=== PATIENT | male | born 1955 | race Caucasian/White ===

== ENCOUNTER 2020-04-28 11:06 | Inpatient (IN) | payer OTHER, MEDICARE ==
[2020-04-28] MEDS ORDERED: NITROGLYCERIN OINT 1 INCH/GM PACKET TOPICAL STA (11:35)
[2020-04-28] MEDS ORDERED: ASPIRIN 81 MG PO STA (11:35)
[2020-04-28 11:47] LABS: Basophils # (A) 0.1 k/uL (0-0.2); Basophils % (A) 1 %; Eosinophils # (A) 0.2 k/uL (0-0.7); Eosinophils % (A) 2 %; HCT 41.9 % (39.0-53.0); Lymphocytes # (A) 0.6 k/uL (1.0-4.8); Lymphocytes % (A) 9 %; MCH 30.4 pg (25.0-35.0); MCHC 33.5 g/dL (31.0-37.0); MCV 90.8 fL (80.0-100.0); Mean Platelet Volume 8.1; Monocytes # (A) 0.5 k/uL (0-1.0); Monocytes % (A) 7 %; Neutrophils # (A) 5.6 k/uL (1.3-7.7); Neutrophils % (A) 79 %; Platelet Count 172 k/uL (150-450); Poikilocytosis Slight; RBC 4.61 m/uL (4.30-5.90); RDW 14.9 % (11.5-15.5); WBC 7.1 k/uL (3.8-10.6)
--- NOTE | 2020-04-28 11:48 | ED ---
General Adult HPI - General Chief complaint: Chest Pain Stated complaint: chest pain Time Seen by Provider: 04/28/20 11:15 Source: patient, family, RN notes reviewed Mode of arrival: wheelchair Limitations: no limitations - History of Present Illness Initial comments: Patient is a pleasant 65-year-old male presenting to the emergency Department with chest discomfort. Onset of symptoms was 4 days ago. Patient has had some mild chest discomfort described as an ache. Patient has also had dyspnea. Dyspnea has progressed. Dyspnea does worsen with lying down as well as exertion. No cough. No fever. No leg pain or leg swelling. Symptoms are some what similar to previous heart problems. Patient has had previous CABG and stents. Mild nausea this morning. No diaphoresis. - Related Data Home Medications Medication Instructions Recorded Confirmed Aspirin 81 mg PO DAILY 04/28/20 04/28/20 Clopidogrel Bisulfate [Plavix] 75 mg PO DAILY 04/28/20 04/28/20 Flaxseed Oil [[place]-3 Flaxseed Oil] 1,000 mg PO BID 04/28/20 04/28/20 INSULIN LISPRO (humaLOG) [humaLOG] See Protocol SQ AC-TID 04/28/20 04/28/20 Ibuprofen [Motrin Ib] 200 mg PO Q8H PRN 04/28/20 04/28/20 Insulin Glargine,Hum.rec.anlog 50 unit SQ HS 04/28/20 04/28/20 [Basaglar Kwikpen U-100] Levothyroxine Sodium [Synthroid] 50 mcg PO DAILY 04/28/20 04/28/20 Melatonin 3 mg PO HS PRN 04/28/20 04/28/20 Metoprolol Tartrate [Lopressor] 100 mg PO DAILY 04/28/20 04/28/20 Multivitamins, Thera [Multivitamin 1 tab PO DAILY 04/28/20 04/28/20 (formulary)] Pravastatin Sodium [Pravachol] 40 mg PO DAILY 04/28/20 04/28/20 Ranolazine [Ranolazine ER] 500 mg PO BID 04/28/20 04/28/20 lisinopriL [Zestril] 10 mg PO DAILY 04/28/20 04/28/20 metFORMIN HCL 1,000 mg PO BID 04/28/20 04/28/20 Allergies Allergy/AdvReac Type Severity Reaction Status Date / Time exenatide [From Byetta] Allergy Rash/Hives Verified 04/28/20 13:09 Iodinated Contrast Media Allergy Unknown Verified 04/28/20 13:09 latex Allergy Rash/Hives Verified 04/28/20 13:09 liraglutide [From Victoza] Allergy Rash/Hives Verified 04/28/20 13:09 Review of Systems ROS Statement: Those systems with pertinent positive or pertinent negative responses have been documented in the HPI. ROS Other: All systems not noted in ROS Statement are negative. Constitutional: Denies: fever Eyes: Denies: eye pain ENT: Denies: ear pain Respiratory: Reports: dyspnea. Denies: cough Cardiovascular: Reports: chest pain Endocrine: Reports: fatigue Gastrointestinal: Denies: abdominal pain Genitourinary: Denies: dysuria Musculoskeletal: Denies: back pain Skin: Denies: rash Neurological: Denies: weakness Past Medical History Past Medical History: Diabetes Mellitus, Hypertension, Myocardial Infarction (CT), Prostate Disorder, Thyroid Disorder Additional Past Medical History / Comment(s): Diverticulitis History of Any Multi-Drug Resistant Organisms: None Reported Past Surgical History: Coronary Bypass/CABG, Heart Catheterization With Stent, Pacemaker Additional Past Surgical History / Comment(s): Triple bypass 2007, prostate removed Past Psychological History: No Psychological Hx Reported Smoking Status: Never smoker Past Alcohol Use History: None Reported Past Drug Use History: None Reported General Exam Limitations: no limitations General appearance: alert, in no apparent distress Head exam: Present: normocephalic Eye exam: Present: normal appearance Neck exam: Present: normal inspection Respiratory exam: Present: rales (Mild right base) Cardiovascular Exam: Present: regular rate, normal rhythm Expanded Peripheral pulses: 2+: Radial (R), Radial (L), Dorsalis Pedis (R), Dorsalis Pedis (L) GI/Abdominal exam: Present: soft. Absent: tenderness Extremities exam: Present: normal inspection. Absent: pedal edema, calf tenderness Neurological exam: Present: alert Psychiatric exam: Present: normal affect, normal mood Skin exam: Present: normal color Course Vital Signs 04/28/20 04/28/20 04/28/20 11:07 11:26 12:57 Temperature 97.8 F Pulse Rate 67 75 75 Respiratory 18 18 18 Rate Blood Pressure 122/82 118/81 116/76 O2 Sat by Pulse 95 96 98 Oximetry EKG Findings - EKG Comments: EKG Findings:: Paced rhythm with a rate of 77. MO 135. QRS 118. QT 398. QTC 450. Right axis. Septal Q waves. Lateral T wave inversion. Medical Decision Making - Medical Decision Making Patient reevaluated and resting comfortably in bed, near symptom-free at this point. Patient and family updated on results and plan. Dr. Auguste has been paged for admission. Heparin will be started. Cardiology will be placed on consult. - Lab Data Result diagrams: 04/28/20 11:38 04/28/20 11:38 Lab Results 04/28/20 04/28/20 04/28/20 Range/Units 11:38 11:38 11:38 WBC 7.1 (3.8-10.6) k/uL RBC 4.61 (4.30-5.90) m/uL Hgb 14.0 (13.0-17.5) gm/dL Hct 41.9 (39.0-53.0) % MCV 90.8 (80.0-100.0) fL MCH 30.4 (25.0-35.0) pg MCHC 33.5 (31.0-37.0) g/dL RDW 14.9 (11.5-15.5) % Plt Count 172 (150-450) k/uL MPV 8.1 Neutrophils % 79 % Lymphocytes % 9 % Monocytes % 7 % Eosinophils % 2 % Basophils % 1 % Neutrophils # 5.6 (1.3-7.7) k/uL Lymphocytes # 0.6 L (1.0-4.8) k/uL Monocytes # 0.5 (0-1.0) k/uL Eosinophils # 0.2 (0-0.7) k/uL Basophils # 0.1 (0-0.2) k/uL Poikilocytosis Slight PT 10.7 (9.0-12.0) sec INR 1.0 (<1.2) APTT 23.8 (22.0-30.0) sec D-Dimer 0.62 H (<0.60) mg/L FEU Sodium 135 L (137-145) mmol/L Potassium 4.8 (3.5-5.1) mmol/L Chloride 103 (98-107) mmol/L Carbon Dioxide 22 (22-30) mmol/L Anion Gap 10 mmol/L BUN 14 (9-20) mg/dL Creatinine 0.78 (0.66-1.25) mg/dL Est GFR (CKD-EPI)AfAm >90 (>60 ml/min/1.73 sqM) Est GFR (CKD-EPI)NonAf >90 (>60 ml/min/1.73 sqM) Glucose 243 H (74-99) mg/dL Calcium 9.4 (8.4-10.2) mg/dL Magnesium 1.7 (1.6-2.3) mg/dL Total Bilirubin 0.8 (0.2-1.3) mg/dL AST 40 (17-59) U/L ALT 38 (4-49) U/L Alkaline Phosphatase 53 (38-126) U/L Troponin I (0.000-0.034) ng/mL NT-Pro-B Natriuret Pep pg/mL Total Protein 6.9 (6.3-8.2) g/dL Albumin 4.1 (3.5-5.0) g/dL Coronavirus (PCR) (Not Detectd) 04/28/20 04/28/20 04/28/20 Range/Units 11:38 11:38 11:55 WBC (3.8-10.6) k/uL RBC (4.30-5.90) m/uL Hgb (13.0-17.5) gm/dL Hct (39.0-53.0) % MCV (80.0-100.0) fL MCH (25.0-35.0) pg MCHC (31.0-37.0) g/dL RDW (11.5-15.5) % Plt Count (150-450) k/uL MPV Neutrophils % % Lymphocytes % % Monocytes % % Eosinophils % % Basophils % % Neutrophils # (1.3-7.7) k/uL Lymphocytes # (1.0-4.8) k/uL Monocytes # (0-1.0) k/uL Eosinophils # (0-0.7) k/uL Basophils # (0-0.2) k/uL Poikilocytosis PT (9.0-12.0) sec INR (<1.2) APTT (22.0-30.0) sec D-Dimer (<0.60) mg/L FEU Sodium (137-145) mmol/L Potassium (3.5-5.1) mmol/L Chloride (98-107) mmol/L Carbon Dioxide (22-30) mmol/L Anion Gap mmol/L BUN (9-20) mg/dL Creatinine (0.66-1.25) mg/dL Est GFR (CKD-EPI)AfAm (>60 ml/min/1.73 sqM) Est GFR (CKD-EPI)NonAf (>60 ml/min/1.73 sqM) Glucose (74-99) mg/dL Calcium (8.4-10.2) mg/dL Magnesium (1.6-2.3) mg/dL Total Bilirubin (0.2-1.3) mg/dL AST (17-59) U/L ALT (4-49) U/L Alkaline Phosphatase (38-126) U/L Troponin I 0.338 H* (0.000-0.034) ng/mL NT-Pro-B Natriuret Pep 1460 pg/mL Total Protein (6.3-8.2) g/dL Albumin (3.5-5.0) g/dL Coronavirus (PCR) Not Detected (Not Detectd) - Radiology Data Radiology results: image reviewed (Chest x-ray shows no acute process) Critical Care Time Critical Care Time: Yes Total Critical Care Time: 32 Disposition Clinical Impression: NSTEMI (non-ST elevated myocardial infarction) Disposition: ADMITTED IP TO THIS [facility] Is patient prescribed a controlled substance at d/c from ED?: No Referrals: Everardo Auguste MD [Primary Care Provider] - 1-2 days Decision Time: 13:19
[2020-04-28 12:04] LABS: Partial Thromboplastin Time 23.8 sec (22.0-30.0); Prothrombin Time 10.7 sec (9.0-12.0)
[2020-04-28 12:07] LABS: ALT 38 U/L (4-49); AST 40 U/L (17-59); African American GFR (CKD) >90 (>60 ml/min/1.73 sqM); Albumin 4.1 g/dL (3.5-5.0); Alkaline Phosphatase 53 U/L (38-126); Anion Gap 10 mmol/L; Blood Urea Nitrogen 14 mg/dL (9-20); Calcium 9.4 mg/dL (8.4-10.2); Carbon Dioxide 22 mmol/L (22-30); Chloride 103 mmol/L (98-107); Glucose 243 mg/dL (74-99); Magnesium 1.7 mg/dL (1.6-2.3); Non-African American GFR(CKD) >90 (>60 ml/min/1.73 sqM); Potassium 4.8 mmol/L (3.5-5.1); Sodium 135 mmol/L (137-145); Total Bilirubin 0.8 mg/dL (0.2-1.3); Total Protein 6.9 g/dL (6.3-8.2)
--- NOTE | 2020-04-28 12:14 | XR ---
EXAMINATION TYPE: XR chest 2V DATE OF EXAM: 04/28/2020 COMPARISON: NONE HISTORY: Shortness of breath TECHNIQUE: Frontal and lateral views of the chest are obtained. FINDINGS: Scattered senescent parenchymal changes noted. Hyperinflation compatible with COPD. No evidence for infiltrate. No evidence for atelectasis. Heart size is stable. Mediastinal structures are stable and grossly unremarkable. No evidence for hilar prominence. Degenerative changes dorsal spine. IMPRESSION: 1. No evidence for acute pulmonary disease.
[2020-04-28 12:19] LABS: D-Dimer 0.62 mg/L FEU (<0.60)
[2020-04-28] MEDS ORDERED: HEPARIN SODIUM,PORCINE 5,000 UNIT/ML 1 ML VIAL IV ONE (12:52)
[2020-04-28] MEDS ORDERED: HEPARIN SODIUM,PORCINE 5,000 UNIT/ML 1 ML VIAL IV PRN (12:52)
[2020-04-28] MEDS ORDERED: INSULIN ASPART (NovoLOG) 100 UNIT/ML VIAL SQ ONE (13:11)
[2020-04-28] MEDS ORDERED: NITROGLYCERIN SL TABS 0.4 MG TAB SUBLINGUAL PRN (13:21)
[2020-04-28] MEDS: HEPARIN SOD,PORK IN 0.45% NACL 25,000 UNIT in 0.45% NACL 1 250ML.BAG IV SCH (13:23)
[2020-04-28] MEDS: NITROGLYCERIN OINT 1 INCH/GM PACKET TOPICAL SCH ×2 (18:09→23:00)
[2020-04-28] MEDS: ACETAMINOPHEN TAB 325 MG TAB PO PRN (18:57)
[2020-04-28 20:20] LABS: Glucose,Whole Blood 196 mg/dL (75-99)
[2020-04-28] MEDS: INSULIN ASPART (NovoLOG) 100 UNIT/ML VIAL SQ SCH (20:32)
[2020-04-28] MEDS: NON FORMULARY DRUG (Flaxseed Oil [Omega-3 Flaxseed Oil] 1,000 MG Capsule) PO SCH (20:55)
[2020-04-28] MEDS: metFORMIN 500 MG TAB PO SCH (20:56)
[2020-04-28] MEDS: ZOLPIDEM 5 MG TAB PO PRN (20:56)
[2020-04-28] MEDS: RANOLAZINE 500 MG TAB.ER.12H PO SCH (20:56)
[2020-04-29 06:28] LABS: Glucose,Whole Blood 207 mg/dL (75-99)
[2020-04-29] MEDS: ACETAMINOPHEN TAB 325 MG TAB PO PRN (06:30)
[2020-04-29] MEDS: INSULIN ASPART (NovoLOG) 100 UNIT/ML VIAL SQ SCH ×4 (06:30→21:00)
[2020-04-29] MEDS: NITROGLYCERIN OINT 1 INCH/GM PACKET TOPICAL SCH ×3 (06:30→17:16)
[2020-04-29 07:36] LABS: Basophils % (A) 0 %; Eosinophils # (A) 0.2 k/uL (0-0.7); Eosinophils % (A) 3 %; HCT 37.5 % (39.0-53.0); HGB 12.5 gm/dL (13.0-17.5); Lymphocytes # (A) 0.7 k/uL (1.0-4.8); Lymphocytes % (A) 12 %; MCH 30.7 pg (25.0-35.0); MCHC 33.3 g/dL (31.0-37.0); MCV 92.2 fL (80.0-100.0); Mean Platelet Volume 8.7; Monocytes # (A) 0.4 k/uL (0-1.0); Monocytes % (A) 7 %; Neutrophils % (A) 75 %; Platelet Count 143 k/uL (150-450); RBC 4.07 m/uL (4.30-5.90); RDW 14.6 % (11.5-15.5); WBC 5.4 k/uL (3.8-10.6)
[2020-04-29] MEDS: NON FORMULARY DRUG (Flaxseed Oil [Omega-3 Flaxseed Oil] 1,000 MG Capsule) PO SCH ×2 (07:40→20:57)
[2020-04-29] MEDS: metFORMIN 500 MG TAB PO SCH ×2 (07:40→20:58)
[2020-04-29 07:44] LABS: INR 1.1 (<1.2); Prothrombin Time 11.2 sec (9.0-12.0)
[2020-04-29] MEDS: lisinopriL 10 MG TAB PO SCH (07:47)
[2020-04-29] MEDS: METOPROLOL TARTRATE 50 MG TAB PO SCH (07:48)
[2020-04-29] MEDS: LEVOTHYROXINE 50 MCG TAB PO SCH (07:48)
[2020-04-29] MEDS: PRAVASTATIN SODIUM 40 MG TAB PO SCH (07:48)
[2020-04-29] MEDS: MULTIVITAMINS, THERA 1 EACH TAB PO SCH (07:48)
[2020-04-29] MEDS: RANOLAZINE 500 MG TAB.ER.12H PO SCH ×2 (07:48→20:59)
[2020-04-29 08:08] LABS: Cholesterol 119 mg/dL (<200); HDL Cholesterol 29 mg/dL (40-60); LDL Cholesterol,Calculated 41 mg/dL (0-99); Triglycerides 247 mg/dL (<150)
[2020-04-29] MEDS ORDERED: FUROSEMIDE 10 MG/ML 2 ML VIAL IV ONE (08:12)
[2020-04-29] MEDS ORDERED: ASPIRIN 325 MG TAB PO SCH (09:00)
[2020-04-29] MEDS: ASPIRIN 81 MG PO SCH (09:14)
[2020-04-29] MEDS: HEPARIN SOD,PORK IN 0.45% NACL 25,000 UNIT in 0.45% NACL 1 250ML.BAG IV SCH ×2 (09:20→23:23)
--- NOTE | 2020-04-29 11:00 | ECHOF ---
Referral Reason:nstemi MEASUREMENTS -------- HEIGHT: 152.4 cm WEIGHT: 104.3 kg BP: IVSd: 1.0 cm (0.6 - 1.1) LVIDd: 5.4 cm (3.9 - 5.3) LVPWd: 1.5 cm (0.6 - 1.1) IVSs: 1.9 cm LVIDs: 3.6 cm LVPWs: 2.1 cm LAESV Index (A-L): 52.22 ml/m MV EXCURSION: 20.195 mm (> 18.000) MV EF SLOPE: 141 mm/s (70 - 150) MV E Fabrice: 0.80 m/s MV DecT: 123 ms MV A Fabrice: 0.38 m/s MV E/A Ratio: 2.12 RAP: 5.00 mmHg RVSP: 45.05 mmHg FINDINGS -------- Paced rhythm. Pacerwire seen in RV and RA. This was a techncally difficult study with suboptimal views, , Lumason utilized for enhancement of im ages. The left ventricular size is normal. Left ventricular wall thickness is normal. Overall left vent ricular systolic function is severely impaired with, an EF between 20 - 25 %. The right ventricle is normal in size. LA is severely dilated >40 ml/m2 The right atrial size is normal. 5.0mg OF Lumason UTLIZED: 2 OR MORE WALL SEGMENTS NOT VISUALIZED. The aortic valve was not well visualized. Mild mitral regurgitation is present. Mild tricuspid regurgitation present. There is mild pulmonary hypertension. The right ventricular systolic pressure, as measured by Doppler, is 45.05mmHg. The pulmonic valve was not well visualized. The aortic root size is normal. There is no pericardial effusion. CONCLUSIONS -------- 1. Pacerwire seen in RV and RA. 2. This was a techncally difficult study with suboptimal views, , Lumason utilized for enhancement of images. 3. The left ventricular size is normal. 4. Left ventricular wall thickness is normal. 5. Overall left ventricular systolic function is severely impaired with, an EF between 20 - 25 %. 6. The right ventricle is normal in size. 7. LA is severely dilated >40 ml/m2 8. The right atrial size is normal. 9. 5.0mg OF Lumason UTLIZED: 2 OR MORE WALL SEGMENTS NOT VISUALIZED. 10. The aortic valve was not well visualized. 11. Mild mitral regurgitation is present. 12. Mild tricuspid regurgitation present. 13. There is mild pulmonary hypertension. 14. The right ventricular systolic pressure, as measured by Doppler, is 45.05mmHg. 15. The pulmonic valve was not well visualized. 16. The aortic root size is normal. 17. There is no pericardial effusion. [employer]IST: Chantell Persaud RDCS
[2020-04-29 11:46] LABS: Glucose,Whole Blood 280 mg/dL (75-99)
--- NOTE | 2020-04-29 12:10 | P.CRDCN ---
History of Present Illness History of present illness: HISTORY OF PRESENTING ILLNESS This is a pleasant 65-year-old male past medical history significant for coronary artery disease status post bypass grafting MAKC-LAD, SVG-OM and PDA 2007 and subsequent PCI of the MACK-LAD anastomosis 2008, ischemic cardiomyopathy status post AICD ([facility] [facility]), diabetes mellitus, hypertension and dyslipidemia. He follows in the office with Dr. Villar. We have been asked to see in consultation for chest pain with elevated troponins. He states for the last 4 days he has been feeling increasingly short of breath. He has been unable to sleep due to orthopnea and inability to lay flat. He also cannot do simple activities such as even walking through his house with having to stop for a breath of air. At times he is also having chest heaviness associated with the shortness of breath. He denies palpitations, dizziness, nausea or vomiting. His most recent catheterization reviewed from 2018 revealed anterior lateral and apical akinesia, MACK to LAD is occluded, [place] LAD is occluded proximally, diffusely diseased distal apical LAD fills by [id number] collaterals, SVG to OM occluded, nonobstructive disease of the [place] circumflex with diffuse disease of the distal OM, SVG PDA is diffusely diseased, [place] RCA supplies only a large RPL there are discrete distal RCA and proximal RPL lesion distal RPL swelling diffusely. Compared to catheterization in 2008 months significant change was occluded distal MACK to LAD anastomosis and some mild progression of lesions in the distal RCA and RPL. Echocardiogram obtained on this admission reveals impaired LV systolic function with ejection fraction 20-25%, mild MR, mild TR and mild pulmonary hypertension with an RVSP of 45 mmHg. DIAGNOSTICS EKG reveals sinus mechanism with ventricular paced rhythm. Telemetry tracings indicate paced rhythm. Chest xray negative for an acute cardiopulmonary process. Laboratory reviewed, ovate negative, CBC unremarkable, d-dimer 0.62, troponin 0.338, 0.500, 0.509, proBNP 1460, sodium 135, potassium 4.8, creatinine 0.78 and magnesium 1.7, LDL 41, HDL 29. Current cardiac medications include Lopressor 100 mg daily, Ranexa 500 mg twice a day, Plavix 75 mg daily, aspirin 81 mg daily, lisinopril 10 mg daily and pravastatin 40 mg daily. REVIEW OF SYSTEMS At the time of my exam: CONSTITUTIONAL: Denies fever or chills. CARDIOVASCULAR: Denies chest pain, shortness of breath, orthopnea, PND or palpitations. RESPIRATORY: Denies cough. GASTROINTESTINAL: Denies abdominal pain, diarrhea, constipation, nausea or vomiting. MUSCULOSKELETAL: Denies myalgias. NEUROLOGIC: Denies numbness, tingling, headacbe or weakness. ENDOCRINE: Denies fatigue, weight change, polydipsia or polyurina. GENITOURINARY: Denies burning, hematuria or urgency with micturation. HEMATOLOGIC: Denies history of anemia or bleeding. PHYSICAL EXAMINATION Blood pressure 99/64 heart rate 77 afebrile and maintaining oxygen saturation on room air. CONSTITUTIONAL: No apparent distress. HEENT: Head is normocephalic. Pupils are equal, round. Sclerae anicteric. Mucous membranes of the mouth are moist. No JVD. No carotid bruit. CHEST EXAMINATION: Lungs are clear to auscultation. No chest wall tenderness is noted on palpation or with deep breathing. HEART EXAMINATION: Regular rate and rhythm. S1, S2 heard. No murmurs, gallops or rub. ABDOMEN: Soft, nontender. Positive bowel sounds. EXTREMITIES: 2+ peripheral pulses, no lower extremity edema and no calf tenderness. NEUROLOGIC EXAMINATION: Patient is awake, alert and oriented x3. ASSESSMENT NSTEMI Unstable angina Coronary artery disease s/p bypass grafting and PCI of the MACK-LAD Ischemic cardiomyopathy s/p AICD Acute on chronic systolic heart failure Hypertension Dyslipidemia Diabetes mellitus Obesity, BMI 32 PLAN Continue IV heparin infusion. Echocardiogram reviewed. Discussed with Dr. Villar and we are currently awaiting the films for further review with interventionalist for recommendations regarding catheterization. Give one dose of IV lasix 20 mg today for mild fluid overload. Further recommendations to follow based on clinical course. Thank you kindly for this consultation. Nurse Practitioner note has been reviewed, I agree with a documented findings and plan of care. Patient was seen and examined. Past Medical History Past Medical History: Coronary Artery Disease (CAD), Cancer, Diabetes Mellitus, Eye Disorder, GERD/Reflux, Hyperlipidemia, Hypertension, Myocardial Infarction (MS), Osteoarthritis (OA), Pneumonia, Prostate Disorder, Thyroid Disorder Additional Past Medical History / Comment(s): IDDM type II, neuropathy bilateral legs/feet, R charcot foot, MS per EKG, prostate cancer with prostatectomy/then PSA started to climb so he then recieved radiation treatments, hiatal hernis, diverticuliltis with bowel resection, frequent headaches/migraines, arthritis bilateral hands, occasional back pain, hypothyroid, starting of bilateral cataracts. Last Myocardial Infarction Date:: unkn History of Any Multi-Drug Resistant Organisms: None Reported Past Surgical History: Bowel Resection, Coronary Bypass/CABG, Heart Catheterization With Stent, Orthopedic Surgery, Pacemaker, Prostate Surgery Additional Past Surgical History / Comment(s): 2002 CABG 3 vessel, PCI with stents in 2008, pacemaker in 2017, prostatectomy, EGD, colonoscopy, bowel resection, R foot bone removal. Past Anesthesia/Blood Transfusion Reactions: No Reported Reaction Date of Last Stent Placement:: 2008 Type of Cardiac Device: Permanent Pacemaker Device Placement Date:: 2017 Smoking Status: Second hand smoke exposure - Past Family History Father Family Medical History: Cancer Additional Family Medical History / Comment(s): Father of prostate cancer. Mother Family Medical History: Diabetes Mellitus Additional Family Medical History / Comment(s): Mother had heart problems. Medications and Allergies Home Medications Medication Instructions Recorded Confirmed Type Aspirin 81 mg PO DAILY 04/28/20 04/28/20 History Clopidogrel Bisulfate [Plavix] 75 mg PO DAILY 04/28/20 04/28/20 History Flaxseed Oil [[place]-3 Flaxseed Oil] 1,000 mg PO BID 04/28/20 04/28/20 History INSULIN LISPRO (humaLOG) [humaLOG] See Protocol SQ AC-TID 04/28/20 04/28/20 History Ibuprofen [Motrin Ib] 200 mg PO Q8H PRN 04/28/20 04/28/20 History Insulin Glargine,Hum.rec.anlog 50 unit SQ HS 04/28/20 04/28/20 History [Basaglar Kwikpen U-100] Levothyroxine Sodium [Synthroid] 50 mcg PO DAILY 04/28/20 04/28/20 History Melatonin 3 mg PO HS PRN 04/28/20 04/28/20 History Metoprolol Tartrate [Lopressor] 100 mg PO DAILY 04/28/20 04/28/20 History Multivitamins, Thera [Multivitamin 1 tab PO DAILY 04/28/20 04/28/20 History (formulary)] Pravastatin Sodium [Pravachol] 40 mg PO DAILY 04/28/20 04/28/20 History Ranolazine [Ranolazine ER] 500 mg PO BID 04/28/20 04/28/20 History lisinopriL [Zestril] 10 mg PO DAILY 04/28/20 04/28/20 History metFORMIN HCL 1,000 mg PO BID 04/28/20 04/28/20 History Allergies Allergy/AdvReac Type Severity Reaction Status Date / Time exenatide [From Byetta] Allergy Rash/Hives Verified 04/28/20 13:09 Iodinated Contrast Media Allergy Unknown Verified 04/28/20 13:09 latex Allergy Rash/Hives Verified 04/28/20 13:09 liraglutide [From Victoza] Allergy Rash/Hives Verified 04/28/20 13:09 Physical Exam Vitals: Vital Signs Temp Pulse Pulse Resp BP BP Pulse Ox 04/29/20 07:43 97.5 F L 87 16 101/59 98 04/29/20 04:00 87 16 108/70 97 04/29/20 00:51 97 18 04/28/20 23:18 97 18 132/75 96 04/28/20 19:32 79 22 04/28/20 19:29 97.8 F 79 22 117/73 97 04/28/20 16:00 82 113/69 97 04/28/20 14:00 97.9 F 74 118/79 96 04/28/20 13:26 98.7 F 71 18 123/74 98 04/28/20 12:57 75 18 116/76 98 04/28/20 11:26 75 18 118/81 96 04/28/20 11:07 97.8 F 67 18 122/82 95 Intake and Output 04/28/20 04/29/20 04/29/20 22:59 06:59 14:59 Intake Total 781.963 96.68 Output Total 300 Balance 781.963 -203.32 Intake: Intake, IV Titration 61.963 96.68 Amount Heparin Sod,Pork in 0.45% 61.963 96.68 NaCl 25,000 unit In 0.45 % NaCl 1 250ml.bag @ 9.58 UNITS/KG/HR 9.994 mls/hr IV .Q24H NILA Rx#: [id number] Oral 720 Output: Urine 300 Other: Voiding Method Toilet Toilet Toilet # Voids 2 2 Weight 104.326 kg 103.3 kg Results 04/29/20 07:21 04/28/20 11:38 Cardiac Enzymes 04/28/20 04/28/20 04/28/20 Range/Units 11:38 11:38 14:26 AST 40 (17-59) U/L Troponin I 0.338 H* 0.500 H* (0.000-0.034) ng/mL 04/28/20 Range/Units 18:45 AST (17-59) U/L Troponin I 0.509 H* (0.000-0.034) ng/mL Coagulation 04/28/20 04/28/20 04/29/20 Range/Units 11:38 18:45 00:37 PT 10.7 (9.0-12.0) sec APTT 23.8 30.0 26.6 (22.0-30.0) sec 04/29/20 Range/Units 07:21 PT 11.2 (9.0-12.0) sec APTT (22.0-30.0) sec CBC 04/28/20 04/29/20 Range/Units 11:38 07:21 WBC 7.1 5.4 (3.8-10.6) k/uL RBC 4.61 4.07 L (4.30-5.90) m/uL Hgb 14.0 12.5 L (13.0-17.5) gm/dL Hct 41.9 37.5 L (39.0-53.0) % Plt Count 172 143 L (150-450) k/uL Comprehensive Metabolic Panel 04/28/20 Range/Units 11:38 Sodium 135 L (137-145) mmol/L Potassium 4.8 (3.5-5.1) mmol/L Chloride 103 (98-107) mmol/L Carbon Dioxide 22 (22-30) mmol/L BUN 14 (9-20) mg/dL Creatinine 0.78 (0.66-1.25) mg/dL Glucose 243 H (74-99) mg/dL Calcium 9.4 (8.4-10.2) mg/dL AST 40 (17-59) U/L ALT 38 (4-49) U/L Alkaline Phosphatase 53 (38-126) U/L Total Protein 6.9 (6.3-8.2) g/dL Albumin 4.1 (3.5-5.0) g/dL Current Medications Generic Name Dose Route Start Last Admin Trade Name Freq PRN Reason Stop Dose Admin Acetaminophen 650 mg 04/28/20 18:53 04/29/20 06:30 Acetaminophen Tab 325 Mg Tab PO 650 mg Q6HR PRN Administration Fever and/ or Pain Aspirin 325 mg 04/29/20 09:00 04/29/20 07:47 Aspirin 325 Mg Tab PO 325 mg DAILY NILA Administration Heparin Sodium (Porcine) 0 unit 04/28/20 12:52 Heparin Sodium,Porcine 5,000 Unit/Ml 1 Ml Vial IV PER PROTOCOL PRN Low PTT Protocol Heparin Sodium/Sodium Chloride 250 mls @ 9.994 mls/hr 04/28/20 13:00 04/29/20 02:57 25,000 unit/ Sodium Chloride IV 15.58 units/kg/hr .Q24H NILA 16.254 mls/hr Titration Protocol 9.58 UNITS/KG/HR Insulin Aspart 0 unit 04/28/20 21:00 04/29/20 06:30 Insulin Aspart (Novolog) 100 Unit/Ml Vial SQ 3 unit ACHS NILA Administration Protocol Levothyroxine Sodium 50 mcg 04/29/20 09:00 04/29/20 07:48 Levothyroxine 50 Mcg Tab PO 50 mcg DAILY NILA Administration Lisinopril 10 mg 04/29/20 09:00 04/29/20 07:47 Lisinopril 10 Mg Tab PO 10 mg DAILY NILA Administration Metformin HCl 1,000 mg 04/28/20 21:00 04/29/20 07:40 Metformin 500 Mg Tab PO Not Given BID NILA Metoprolol Tartrate 100 mg 04/29/20 09:00 04/29/20 07:48 Metoprolol Tartrate 50 Mg Tab PO 100 mg DAILY NILA Administration Multivitamins 1 each 04/29/20 09:00 04/29/20 07:48 Multivitamins, Thera 1 Each Tab PO 1 each DAILY NILA Administration Nitroglycerin 0.4 mg 04/28/20 13:21 Nitroglycerin Sl Tabs 0.4 Mg Tab SUBLINGUAL Q5M PRN Chest Pain Nitroglycerin 1 inch 04/28/20 18:00 04/29/20 06:30 Nitroglycerin Oint 1 Inch/Gm Packet TOPICAL 1 inch Q6HR NILA Administration Non-Formulary Medication 1,000 mg 04/28/20 21:00 04/29/20 07:40 Flaxseed Oil [[place]-3 Flaxseed Oil] PO Not Given BID NILA Pravastatin Sodium 40 mg 04/29/20 09:00 04/29/20 07:48 Pravastatin Sodium 40 Mg Tab PO 40 mg DAILY NILA Administration Ranolazine 500 mg 04/28/20 21:00 04/29/20 07:48 Ranolazine 500 Mg Tab.Er.12h PO 500 mg BID NILA Administration Sodium Chloride 10 ml 04/28/20 21:00 04/29/20 07:40 Sodium Chloride 0.9% Flush 10 Ml Syringe IV Not Given BID NILA Zolpidem Tartrate 5 mg 04/28/20 20:31 04/28/20 20:56 Zolpidem 5 Mg Tab PO 5 mg HS PRN Administration Insomnia Intake and Output 04/28/20 04/29/20 04/29/20 22:59 06:59 14:59 Intake Total 781.963 96.68 Output Total 300 Balance 781.963 -203.32 Intake: Intake, IV Titration 61.963 96.68 Amount Heparin Sod,Pork in 0.45% 61.963 96.68 NaCl 25,000 unit In 0.45 % NaCl 1 250ml.bag @ 9.58 UNITS/KG/HR 9.994 mls/hr IV .Q24H NILA Rx#: [id number] Oral 720 Output: Urine 300 Other: Voiding Method Toilet Toilet Toilet # Voids 2 2 Weight 104.326 kg 103.3 kg 04/29/20 07:21 04/28/20 11:38
[2020-04-29 16:53] LABS: Glucose,Whole Blood 203 mg/dL (75-99)
--- NOTE | 2020-04-29 18:58 | P.HPIM ---
History of Present Illness H&P Date: 04/28/20 Chief Complaint: THIBODEAUX This is history of physical 65-year-old white male with known history of CAD and cardio myopathy who yesterday was complaining of significant problems related orthopnea. EKG did not show significant problems related to ST segment elevation secondary to pacemaker. The patient was told to go to the emergency room if symptoms are worsening but he developed worsening orthopnea. Troponin came back the next day positive and he was admitted for appropriate unstable angina and NSTEMI Review of Systems Constitutional: Denies chills, Denies fever Eyes: denies blurred vision, denies pain Ears, nose, mouth and throat: Denies headache, Denies sore throat Cardiovascular: Reports as per HPI, Reports chest pain, Reports orthopnea, Reports shortness of breath Respiratory: Denies cough Gastrointestinal: Denies abdominal pain, Denies diarrhea, Denies nausea, Denies vomiting Musculoskeletal: Denies myalgias Integumentary: Denies pruritus, Denies rash Neurological: Denies numbness, Denies weakness Past Medical History Past Medical History: Coronary Artery Disease (CAD), Cancer, Diabetes Mellitus, Eye Disorder, GERD/Reflux, Hyperlipidemia, Hypertension, Myocardial Infarction (UT), Osteoarthritis (OA), Pneumonia, Prostate Disorder, Thyroid Disorder Additional Past Medical History / Comment(s): IDDM type II, neuropathy bilateral legs/feet, R charcot foot, UT per EKG, prostate cancer with prostatectomy/then PSA started to climb so he then recieved radiation treatments, hiatal hernis, diverticuliltis with bowel resection, frequent headaches/migraines, arthritis bilateral hands, occasional back pain, hypothyroid, starting of bilateral cataracts. Last Myocardial Infarction Date:: unkn History of Any Multi-Drug Resistant Organisms: None Reported Past Surgical History: Bowel Resection, Coronary Bypass/CABG, Heart Catheterization With Stent, Orthopedic Surgery, Pacemaker, Prostate Surgery Additional Past Surgical History / Comment(s): 2002 CABG 3 vessel, PCI with stents in 2008, pacemaker in 2017, prostatectomy, EGD, colonoscopy, bowel rese ction, R foot bone removal. Past Anesthesia/Blood Transfusion Reactions: No Reported Reaction Date of Last Stent Placement:: 2008 Type of Cardiac Device: Permanent Pacemaker Device Placement Date:: 2017 Smoking Status: Second hand smoke exposure - Past Family History Father Family Medical History: Cancer Additional Family Medical History / Comment(s): Father of prostate cancer. Mother Family Medical History: Diabetes Mellitus Additional Family Medical History / Comment(s): Mother had heart problems. Medications and Allergies Home Medications Medication Instructions Recorded Confirmed Type Aspirin 81 mg PO DAILY 04/28/20 04/28/20 History Clopidogrel Bisulfate [Plavix] 75 mg PO DAILY 04/28/20 04/28/20 History Flaxseed Oil [Sturkie-3 Flaxseed Oil] 1,000 mg PO BID 04/28/20 04/28/20 History INSULIN LISPRO (humaLOG) [humaLOG] See Protocol SQ AC-TID 04/28/20 04/28/20 History Ibuprofen [Motrin Ib] 200 mg PO Q8H PRN 04/28/20 04/28/20 History Insulin Glargine,Hum.rec.anlog 50 unit SQ HS 04/28/20 04/28/20 History [Basaglar Kwikpen U-100] Levothyroxine Sodium [Synthroid] 50 mcg PO DAILY 04/28/20 04/28/20 History Melatonin 3 mg PO HS PRN 04/28/20 04/28/20 History Metoprolol Tartrate [Lopressor] 100 mg PO DAILY 04/28/20 04/28/20 History Multivitamins, Thera [Multivitamin 1 tab PO DAILY 04/28/20 04/28/20 History (formulary)] Pravastatin Sodium [Pravachol] 40 mg PO DAILY 04/28/20 04/28/20 History Ranolazine [Ranolazine ER] 500 mg PO BID 04/28/20 04/28/20 History lisinopriL [Zestril] 10 mg PO DAILY 04/28/20 04/28/20 History metFORMIN HCL 1,000 mg PO BID 04/28/20 04/28/20 History Allergies Allergy/AdvReac Type Severity Reaction Status Date / Time exenatide [From Byetta] Allergy Rash/Hives Verified 04/28/20 13:09 Iodinated Contrast Media Allergy Unknown Verified 04/28/20 13:09 latex Allergy Rash/Hives Verified 04/28/20 13:09 liraglutide [From Victoza] Allergy Rash/Hives Verified 04/28/20 13:09 Physical Exam Vitals: Vital Signs Temp Pulse Resp BP Pulse Ox 04/29/20 14:55 97.5 F L 81 17 108/67 96 04/29/20 11:13 97.6 F 77 18 99/64 96 04/29/20 07:43 97.5 F L 87 16 101/59 98 04/29/20 04:00 87 16 108/70 97 04/29/20 00:51 97 18 04/28/20 23:18 97 18 132/75 96 04/28/20 19:32 79 22 04/28/20 19:29 97.8 F 79 22 117/73 97 Intake and Output 04/29/20 04/29/20 04/29/20 06:59 14:59 22:59 Intake Total 96.68 471.357 200 Output Total 300 Balance -203.32 471.357 200 Intake: IV 80 Heparin Sod,Pork in 0.45% 80 NaCl 25,000 unit In 0.45 % NaCl 1 250ml.bag @ 9.58 UNITS/KG/HR 9.994 mls/hr IV .Q24H NILA Rx#: [id number] Intake, IV Titration 96.68 91.357 Amount Heparin Sod,Pork in 0.45% 96.68 91.357 NaCl 25,000 unit In 0.45 % NaCl 1 250ml.bag @ 9.58 UNITS/KG/HR 9.994 mls/hr IV .Q24H NILA Rx#: [id number] Oral 380 120 Output: Urine 300 Other: Voiding Method Toilet Toilet # Voids 2 Weight 103.3 kg - Constitutional General appearance: no acute distress - EENT Eyes: EOMI - Neck Neck: no lymphadenopathy - Respiratory Respiratory: bilateral: CTA - Cardiovascular Rhythm: regular Heart sounds: normal: S1, S2 Abnormal Heart Sounds: no S3 Gallop - Gastrointestinal General gastrointestinal: soft, no tenderness - Neurologic Neurologic: CNII-XII intact - Psychiatric Psychiatric: A&O x's 3, appropriate affect, intact judgment & insight Results CBC & Chem 7: 04/29/20 07:21 04/28/20 11:38 Labs: Abnormal Lab Results - Last 24 Hours (Table) 04/28/20 04/28/20 04/29/20 Range/Units 18:45 20:19 06:25 RBC (4.30-5.90) m/uL Hgb (13.0-17.5) gm/dL Hct (39.0-53.0) % Plt Count (150-450) k/uL Lymphocytes # (1.0-4.8) k/uL APTT (22.0-30.0) sec POC Glucose (mg/dL) 196 H 207 H (75-99) mg/dL Troponin I 0.509 H* (0.000-0.034) ng/mL Triglycerides (<150) mg/dL HDL Cholesterol (40-60) mg/dL 04/29/20 04/29/20 04/29/20 Range/Units 07:21 07:21 11:05 RBC 4.07 L (4.30-5.90) m/uL Hgb 12.5 L (13.0-17.5) gm/dL Hct 37.5 L (39.0-53.0) % Plt Count 143 L (150-450) k/uL Lymphocytes # 0.7 L (1.0-4.8) k/uL APTT 44.5 H (22.0-30.0) sec POC Glucose (mg/dL) (75-99) mg/dL Troponin I (0.000-0.034) ng/mL Triglycerides 247 H (<150) mg/dL HDL Cholesterol 29 L (40-60) mg/dL 04/29/20 04/29/20 Range/Units 11:44 16:52 RBC (4.30-5.90) m/uL Hgb (13.0-17.5) gm/dL Hct (39.0-53.0) % Plt Count (150-450) k/uL Lymphocytes # (1.0-4.8) k/uL APTT (22.0-30.0) sec POC Glucose (mg/dL) 280 H 203 H (75-99) mg/dL Troponin I (0.000-0.034) ng/mL Triglycerides (<150) mg/dL HDL Cholesterol (40-60) mg/dL Thrombosis Risk Factor Assmnt - Choose All That Apply Any of the Below Risk Factors Present?: Yes Each Factor Represents 1 point: Acute [place], Obesity (BMI >25) Other Risk Factors: Yes Each Risk Factor Represents 2 Points: Age 61-74 years Other congenital or acquired thrombophilia - If yes, enter type in comment: No Thrombosis Risk Factor Assessment Total Risk Factor Score: 4 Thrombosis Risk Factor Assessment Level: Moderate Risk Assessment and Plan (1) CAD (coronary artery disease) Current Visit: Yes Status: Acute Code(s): I25.10 - ATHSCL HEART DISEASE OF [place] CORONARY ARTERY W/O ANG PCTRS SNOMED Code(s): 24510260 (2) Diabetes Current Visit: Yes Status: Acute Code(s): E11.9 - TYPE 2 DIABETES MELLITUS WITHOUT COMPLICATIONS SNOMED Code(s): 16658459 (3) NSTEMI (non-ST elevated myocardial infarction) Current Visit: Yes Status: Acute Code(s): I21.4 - NON-ST ELEVATION (NSTEMI) MYOCARDIAL INFARCTION SNOMED Code(s): 00976265 Plan: Await echocardiogram results. I suspect stress testing versus cardiac catheterization. Reconcile medications. Place on sliding scale. See orders otherwise. Time with Patient: Greater than 30
--- NOTE | 2020-04-29 19:01 | P.PN ---
Subjective Progress Note Date: 04/29/20 Principal diagnosis: Continue progress note with patient with unstable angina and an STEMI. Echocardiogram does show poor ejection fraction. Appreciate cardiology input. The patient had decreased orthopnea today. No significant nausea, vomiting or diarrhea stated. Objective - Vital Signs Vital signs: Vital Signs Temp 97.5 F L 04/29/20 14:55 Pulse 81 04/29/20 14:55 Resp 17 04/29/20 14:55 BP 108/67 04/29/20 14:55 Pulse Ox 96 04/29/20 14:55 Intake & Output 04/28/20 04/29/20 04/29/20 18:59 06:59 18:59 Intake Total 720 158.643 671.357 Output Total 300 Balance 720 -141.357 671.357 Weight 104.326 kg 103.3 kg Intake: IV 80 Heparin Sod,Pork in 0.45% 80 NaCl 25,000 unit In 0.45 % NaCl 1 250ml.bag @ 9.58 UNITS/KG/HR 9.994 mls/hr IV .Q24H [facility]IL[facility] Rx#: [id number] Intake, IV Titration 158.643 91.357 Amount Heparin Sod,Pork in 0.45% 158.643 91.357 NaCl 25,000 unit In 0.45 % NaCl 1 250ml.bag @ 9.58 UNITS/KG/HR 9.994 mls/hr IV .Q24H NILA Rx#: [id number] Oral 720 500 Output: Urine 300 Other: Voiding Method Toilet Toilet # Voids 2 2 - Constitutional General appearance: Present: no acute distress - EENT Eyes: Absent: abnormal pupil - Neck Neck: Absent: lymphadenopathy - Respiratory Respiratory: bilateral: CTA - Cardiovascular Rhythm: regular Heart sounds: normal: S1, S2 Abnormal Heart Sounds: Absent: S3 Gallop - Gastrointestinal General gastrointestinal: Present: soft. Absent: tenderness - Integumentary Integumentary: Absent: cellulitis - Neurologic Neurologic: Present: CNII-XII intact. Absent: focal deficits - Psychiatric Psychiatric: Present: A&O x's 3 - Labs CBC & Chem 7: 04/29/20 07:21 04/28/20 11:38 Labs: Abnormal Lab Results - Last 24 Hours (Table) 04/28/20 04/28/20 04/29/20 Range/Units 18:45 20:19 06:25 RBC (4.30-5.90) m/uL Hgb (13.0-17.5) gm/dL Hct (39.0-53.0) % Plt Count (150-450) k/uL Lymphocytes # (1.0-4.8) k/uL APTT (22.0-30.0) sec POC Glucose (mg/dL) 196 H 207 H (75-99) mg/dL Troponin I 0.509 H* (0.000-0.034) ng/mL Triglycerides (<150) mg/dL HDL Cholesterol (40-60) mg/dL 04/29/20 04/29/20 04/29/20 Range/Units 07:21 07:21 11:05 RBC 4.07 L (4.30-5.90) m/uL Hgb 12.5 L (13.0-17.5) gm/dL Hct 37.5 L (39.0-53.0) % Plt Count 143 L (150-450) k/uL Lymphocytes # 0.7 L (1.0-4.8) k/uL APTT 44.5 H (22.0-30.0) sec POC Glucose (mg/dL) (75-99) mg/dL Troponin I (0.000-0.034) ng/mL Triglycerides 247 H (<150) mg/dL HDL Cholesterol 29 L (40-60) mg/dL 04/29/20 04/29/20 Range/Units 11:44 16:52 RBC (4.30-5.90) m/uL Hgb (13.0-17.5) gm/dL Hct (39.0-53.0) % Plt Count (150-450) k/uL Lymphocytes # (1.0-4.8) k/uL APTT (22.0-30.0) sec POC Glucose (mg/dL) 280 H 203 H (75-99) mg/dL Troponin I (0.000-0.034) ng/mL Triglycerides (<150) mg/dL HDL Cholesterol (40-60) mg/dL Assessment and Plan (1) CAD (coronary artery disease) Current Visit: Yes Status: Acute Code(s): I25.10 - ATHSCL HEART DISEASE OF [place] CORONARY ARTERY W/O ANG PCTRS SNOMED Code(s): 10710545 (2) Diabetes Current Visit: Yes Status: Acute Code(s): E11.9 - TYPE 2 DIABETES MELLITUS WITHOUT COMPLICATIONS SNOMED Code(s): 73536502 (3) NSTEMI (non-ST elevated myocardial infarction) Current Visit: Yes Status: Acute Code(s): I21.4 - NON-ST ELEVATION (NSTEMI) MYOCARDIAL INFARCTION SNOMED Code(s): 89594148 Plan: I suspect cardiac catheterization will be needed. Continue current regimen medication. Echocardiogram is noted..
[2020-04-29 20:50] LABS: Glucose,Whole Blood 299 mg/dL (75-99)
[2020-04-29] MEDS: ZOLPIDEM 5 MG TAB PO PRN (21:08)
[2020-04-30] MEDS: NITROGLYCERIN OINT 1 INCH/GM PACKET TOPICAL SCH ×2 (00:43→06:47)
[2020-04-30 06:22] LABS: Glucose,Whole Blood 220 mg/dL (75-99)
[2020-04-30] MEDS: METOPROLOL TARTRATE 50 MG TAB PO SCH (06:56)
[2020-04-30] MEDS: INSULIN ASPART (NovoLOG) 100 UNIT/ML VIAL SQ SCH ×4 (06:56→20:35)
[2020-04-30] MEDS: RANOLAZINE 500 MG TAB.ER.12H PO SCH ×2 (06:57→20:35)
[2020-04-30] MEDS: LEVOTHYROXINE 50 MCG TAB PO SCH (06:57)
[2020-04-30] MEDS: PRAVASTATIN SODIUM 40 MG TAB PO SCH (06:57)
[2020-04-30] MEDS: MULTIVITAMINS, THERA 1 EACH TAB PO SCH (06:57)
[2020-04-30] MEDS: lisinopriL 10 MG TAB PO SCH (06:57)
[2020-04-30] MEDS: ASPIRIN 81 MG PO SCH (06:57)
[2020-04-30] MEDS: metFORMIN 500 MG TAB PO SCH ×3 (07:03→20:35)
[2020-04-30] MEDS: NON FORMULARY DRUG (Flaxseed Oil [Omega-3 Flaxseed Oil] 1,000 MG Capsule) PO SCH (07:03)
--- NOTE | 2020-04-30 08:01 | P.PN ---
Subjective Principal diagnosis: Continue progress note with patient with unstable angina and an STEMI. Echocardiogram does show poor ejection fraction. Appreciate cardiology input. The patient had decreased orthopnea today. No significant nausea, vomiting or diarrhea stated. Awaiting probable cardiac catheterization today. Objective - Vital Signs Vital signs: Vital Signs Temp 97.8 F 04/30/20 04:00 Pulse 84 04/30/20 04:00 Resp 18 04/30/20 04:00 BP 124/75 04/30/20 04:00 Pulse Ox 97 04/30/20 04:00 Intake & Output 04/29/20 04/30/20 04/30/20 18:59 06:59 18:59 Intake Total 671.357 228.369 Balance 671.357 228.369 Weight 102.5 kg Intake: IV 80 Heparin Sod,Pork in 0.45% 80 NaCl 25,000 unit In 0.45 % NaCl 1 250ml.bag @ 9.58 UNITS/KG/HR 9.994 mls/hr IV .Q24H NILA Rx#: [id number] Intake, IV Titration 91.357 228.369 Amount Heparin Sod,Pork in 0.45% 91.357 228.369 NaCl 25,000 unit In 0.45 % NaCl 1 250ml.bag @ 9.58 UNITS/KG/HR 9.994 mls/hr IV .Q24H NILA Rx#: [id number] Oral 500 Other: Voiding Method Toilet Toilet # Voids 2 - EENT Eyes: Absent: abnormal pupil - Neck Neck: Absent: lymphadenopathy - Respiratory Respiratory: bilateral: CTA - Cardiovascular Rhythm: regular Heart sounds: normal: S1, S2 Abnormal Heart Sounds: Absent: S3 Gallop - Gastrointestinal General gastrointestinal: Present: soft - Labs CBC & Chem 7: 04/29/20 07:21 04/28/20 11:38 Labs: Abnormal Lab Results - Last 24 Hours (Table) 04/29/20 04/29/20 04/29/20 Range/Units 07:21 11:05 11:44 APTT 44.5 H (22.0-30.0) sec POC Glucose (mg/dL) 280 H (75-99) mg/dL Triglycerides 247 H (<150) mg/dL HDL Cholesterol 29 L (40-60) mg/dL 02/03/21 02/03/21 02/04/21 Range/Units 16:52 20:48 06:11 APTT (22.0-30.0) sec POC Glucose (mg/dL) 203 H 299 H 220 H (75-99) mg/dL Triglycerides (<150) mg/dL HDL Cholesterol (40-60) mg/dL Assessment and Plan (1) CAD (coronary artery disease) Current Visit: Yes Status: Acute Code(s): I25.10 - ATHSCL HEART DISEASE OF [place] CORONARY ARTERY W/O ANG PCTRS SNOMED Code(s): 81898853 (2) Diabetes Current Visit: Yes Status: Acute Code(s): E11.9 - TYPE 2 DIABETES MELLITUS WITHOUT COMPLICATIONS SNOMED Code(s): 13622163 (3) NSTEMI (non-ST elevated myocardial infarction) Current Visit: Yes Status: Acute Code(s): I21.4 - NON-ST ELEVATION (NSTEMI) MYOCARDIAL INFARCTION SNOMED Code(s): 72326451 Plan: I suspect cardiac catheterization will be needed. We'll continue to follow with cardiology. Blood sugar is on currently sliding scale. We will restart Levemir once nothing by mouth as listed.
[2020-04-30 08:17] LABS: Basophils % (A) 1 %; Eosinophils # (A) 0.2 k/uL (0-0.7); Eosinophils % (A) 3 %; HCT 42.7 % (39.0-53.0); HGB 13.7 gm/dL (13.0-17.5); Hypochromasia Slight; Lymphocytes # (A) 0.7 k/uL (1.0-4.8); Lymphocytes % (A) 12 %; MCH 29.9 pg (25.0-35.0); MCV 93.4 fL (80.0-100.0); Monocytes # (A) 0.4 k/uL (0-1.0); Monocytes % (A) 6 %; Neutrophils # (A) 4.4 k/uL (1.3-7.7); Neutrophils % (A) 76 %; Platelet Count 164 k/uL (150-450); RBC 4.57 m/uL (4.30-5.90); RDW 14.4 % (11.5-15.5); WBC 5.9 k/uL (3.8-10.6)
[2020-04-30 08:29] LABS: Partial Thromboplastin Time 52.2 sec (22.0-30.0)
[2020-04-30 11:53] LABS: Glucose,Whole Blood 246 mg/dL (75-99)
--- NOTE | 2020-04-30 13:40 | P.PN ---
Subjective Patient is resting comfortably in bed. He denies any shortness of breath. He denies any chest discomfort no undue shortness of breath no dizziness or lightheadedness Examination his blood pressure 124/75 mmHg pulse rate is in the 80s afebrile 97 .8F Lungs sounds are normal breath sounds are clear no rhonchi no crackles Normal S1 normal S2 no murmurs Abdomen soft Bilateral foot deformities right greater than left noted, Charcot Impression Advanced CAD. Patient was told at the last cardiac cath that he was not amenable for any further revascularization I have requested a hard copy of the cardiac catheterization This time he had a small non-Q-wave [place] He is being treated medically at this time per Dr. Choe's recommendations also IV heparin will continue to tomorrow Beta blockers will be increased to metoprolol succinate 100 mg by mouth daily Right waist is being discontinued Statins have been increased to 80 mg daily He is permanent pacemaker Objective - Vital Signs Vital signs: Vital Signs Temp 97.7 F 04/30/20 08:00 Pulse 76 04/30/20 12:00 Resp 20 04/30/20 12:00 BP 107/65 04/30/20 12:00 Pulse Ox 98 04/30/20 12:00 Intake & Output 04/29/20 04/30/20 04/30/20 18:59 06:59 18:59 Intake Total 671.357 228.369 236 Balance 671.357 228.369 236 Weight 102.5 kg Intake: IV 80 Heparin Sod,Pork in 0.45% 80 NaCl 25,000 unit In 0.45 % NaCl 1 250ml.bag @ 9.58 UNITS/KG/HR 9.994 mls/hr IV .Q24H NILA Rx#: [id number] Intake, IV Titration 91.357 228.369 Amount Heparin Sod,Pork in 0.45% 91.357 228.369 NaCl 25,000 unit In 0.45 % NaCl 1 250ml.bag @ 9.58 UNITS/KG/HR 9.994 mls/hr IV .Q24H NILA Rx#: [id number] Oral 500 236 Other: Voiding Method Toilet Toilet # Voids 2 1 - Labs CBC & Chem 7: 04/30/20 07:43 04/28/20 11:38 Labs: Abnormal Lab Results - Last 24 Hours (Table) 04/29/20 04/29/20 04/30/20 Range/Units 16:52 20:48 06:11 Lymphocytes # (1.0-4.8) k/uL APTT (22.0-30.0) sec POC Glucose (mg/dL) 203 H 299 H 220 H (75-99) mg/dL 04/30/20 04/30/20 04/30/20 Range/Units 07:43 07:43 11:52 Lymphocytes # 0.7 L (1.0-4.8) k/uL APTT 52.2 H (22.0-30.0) sec POC Glucose (mg/dL) 246 H (75-99) mg/dL
[2020-04-30 16:27] LABS: Glucose,Whole Blood 218 mg/dL (75-99)
[2020-04-30 20:10] LABS: Glucose,Whole Blood 219 mg/dL (75-99)
[2020-04-30] MEDS: FUROSEMIDE 10 MG/ML 2 ML VIAL IV SCH (20:35)
[2020-04-30] MEDS: ZOLPIDEM 5 MG TAB PO PRN (23:41)
[2020-05-01 06:31] LABS: Glucose,Whole Blood 255 mg/dL (75-99)
[2020-05-01 07:07] LABS: Basophils % (A) 0 %; Eosinophils # (A) 0.2 k/uL (0-0.7); Eosinophils % (A) 3 %; HCT 39.9 % (39.0-53.0); HGB 13.4 gm/dL (13.0-17.5); Lymphocytes # (A) 0.8 k/uL (1.0-4.8); Lymphocytes % (A) 14 %; MCH 30.8 pg (25.0-35.0); MCHC 33.6 g/dL (31.0-37.0); MCV 91.7 fL (80.0-100.0); Mean Platelet Volume 8.4; Monocytes # (A) 0.5 k/uL (0-1.0); Monocytes % (A) 8 %; Neutrophils # (A) 4.1 k/uL (1.3-7.7); Neutrophils % (A) 72 %; Platelet Count 146 k/uL (150-450); RBC 4.35 m/uL (4.30-5.90); RDW 14.2 % (11.5-15.5); WBC 5.7 k/uL (3.8-10.6)
[2020-05-01] MEDS: INSULIN ASPART (NovoLOG) 100 UNIT/ML VIAL SQ SCH ×2 (07:09→11:46)
[2020-05-01 07:13] LABS: Prothrombin Time 11.1 sec (9.0-12.0)
[2020-05-01] MEDS: lisinopriL 10 MG TAB PO SCH (08:19)
[2020-05-01] MEDS: FUROSEMIDE 10 MG/ML 2 ML VIAL IV SCH (08:19)
[2020-05-01] MEDS: metFORMIN 500 MG TAB PO SCH (08:20)
[2020-05-01] MEDS: LEVOTHYROXINE 50 MCG TAB PO SCH (08:20)
[2020-05-01] MEDS: RANOLAZINE 500 MG TAB.ER.12H PO SCH (08:20)
[2020-05-01] MEDS: ASPIRIN 81 MG PO SCH (08:20)
[2020-05-01] MEDS: MULTIVITAMINS, THERA 1 EACH TAB PO SCH (08:20)
--- NOTE | 2020-05-01 08:27 | P.PN ---
Subjective Principal diagnosis: Continue progress note with patient with unstable angina and an STEMI. Echocardiogram does show poor ejection fraction. Appreciate cardiology input. The patient had decreased orthopnea today. No significant nausea, vomiting or diarrhea stated. 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 Objective - Vital Signs Vital signs: Vital Signs Temp 97.6 F 05/01/20 04:00 Pulse 72 05/01/20 04:00 Resp 18 05/01/20 04:00 BP 132/72 05/01/20 04:00 Pulse Ox 97 05/01/20 04:00 Intake & Output 04/30/20 05/01/20 05/01/20 18:59 06:59 18:59 Intake Total 236 240 Balance 236 240 Weight 100.6 kg Intake: Oral 236 240 Other: Voiding Method Toilet # Voids 1 4 - Constitutional General appearance: Present: average body habitus - EENT Eyes: Absent: abnormal pupil - Respiratory Respiratory: bilateral: CTA - Cardiovascular Heart rate: 100 (Tachycardic) Rhythm: regular Heart sounds: normal: S1, S2 Abnormal Heart Sounds: Absent: S3 Gallop - Gastrointestinal General gastrointestinal: Present: soft. Absent: tenderness - Integumentary Integumentary: Absent: cellulitis - Neurologic Neurologic: Present: CNII-XII intact - Labs CBC & Chem 7: 05/01/20 06:41 04/28/20 11:38 Labs: Abnormal Lab Results - Last 24 Hours (Table) 04/30/20 04/30/20 04/30/20 Range/Units 07:43 11:52 16:25 Plt Count (150-450) k/uL Lymphocytes # (1.0-4.8) k/uL APTT 52.2 H (22.0-30.0) sec POC Glucose (mg/dL) 246 H 218 H (75-99) mg/dL 04/30/20 05/01/20 05/01/20 Range/Units 20:08 06:29 06:41 Plt Count 146 L (150-450) k/uL Lymphocytes # 0.8 L (1.0-4.8) k/uL APTT (22.0-30.0) sec POC Glucose (mg/dL) 219 H 255 H (75-99) mg/dL Assessment and Plan (1) CAD (coronary artery disease) Current Visit: Yes Status: Acute Code(s): I25.10 - ATHSCL HEART DISEASE OF [place] CORONARY ARTERY W/O ANG PCTRS SNOMED Code(s): 30829048 (2) Diabetes Current Visit: Yes Status: Acute Code(s): E11.9 - TYPE 2 DIABETES MELLITUS WITHOUT COMPLICATIONS SNOMED Code(s): 43575490 (3) NSTEMI (non-ST elevated myocardial infarction) Current Visit: Yes Status: Acute Code(s): I21.4 - NON-ST ELEVATION (NSTEMI) MYOCARDIAL INFARCTION SNOMED Code(s): 18069403 Plan: I suspect cardiac catheterization will be needed. We'll continue to follow with cardiology. Blood sugar is on currently sliding scale. We will restart Levemir once nothing by mouth as listed.
[2020-05-01] MEDS ORDERED: PRAVASTATIN SODIUM 80 MG TAB PO SCH (09:00)
[2020-05-01] MEDS ORDERED: METOPROLOL SUCCINATE (ER) 100 MG TAB.ER.24H PO SCH (09:00)
[2020-05-01 11:16] VITALS: BP 120/83; RESP 16
[2020-05-01 11:52] LABS: Glucose,Whole Blood 256 mg/dL (75-99)
[2020-05-01 13:17] VITALS: PULSE 65; TEMP 97.2
--- NOTE | 2020-05-01 13:19 | P.PN ---
Subjective HISTORY OF PRESENTING ILLNESS This is a pleasant 65-year-old male past medical history significant for coronary artery disease status post bypass grafting MACK-LAD, SVG-OM and PDA 2007 and subsequent PCI of the MACK-LAD anastomosis 2008, ischemic cardiomyopathy status post AICD (St. G[facility]), diabetes mellitus, hypertension and dyslipidemia. He follows in the office with Dr. Villar. He is seen and examined sitting up in the chair in no acute distress. He states overall his breathing has improved. PHYSICAL EXAMINATION CONSTITUTIONAL: No apparent distress. HEENT: Head is normocephalic. Pupils are equal, round. Sclerae anicteric. Mucous membranes of the mouth are moist. No JVD. No carotid bruit. CHEST EXAMINATION: Lungs are clear to auscultation. No chest wall tenderness is noted on palpation or with deep breathing. HEART EXAMINATION: Regular rate and rhythm. S1, S2 heard. No murmurs, gallops or rub. EXTREMITIES: 2+ peripheral pulses, no lower extremity edema and no calf tenderness. ASSESSMENT NSTEMI Unstable angina Coronary artery disease s/p bypass grafting and PCI of the MACK-LAD Ischemic cardiomyopathy s/p AICD Acute on chronic systolic heart failure Hypertension Dyslipidemia Diabetes mellitus Obesity, BMI 32 PLAN Stable for discharge from a cardiac perspective. Recommend lasix 40 mg daily at home. Follow up with Dr. Villar in the office next week and he will review his cath films at that time. Nurse Practitioner note has been reviewed, I agree with a documented findings and plan of care. Patient was seen and examined. Objective - Vital Signs Vital signs: Vital Signs Temp 97.1 F L 05/01/20 08:00 Pulse 93 05/01/20 08:00 Resp 16 05/01/20 08:00 BP 120/83 05/01/20 08:00 Pulse Ox 94 L 05/01/20 08:00 Intake & Output 04/30/20 05/01/20 05/01/20 18:59 06:59 18:59 Intake Total 236 240 Balance 236 240 Weight 100.6 kg Intake: Oral 236 240 Other: Voiding Method Toilet Toilet # Voids 1 4 - Labs CBC & Chem 7: 05/01/20 06:41 04/28/20 11:38 Labs: Abnormal Lab Results - Last 24 Hours (Table) 04/30/20 04/30/20 05/01/20 Range/Units 16:25 20:08 06:29 Plt Count (150-450) k/uL Lymphocytes # (1.0-4.8) k/uL POC Glucose (mg/dL) 218 H 219 H 255 H (75-99) mg/dL 05/01/20 05/01/20 Range/Units 06:41 11:40 Plt Count 146 L (150-450) k/uL Lymphocytes # 0.8 L (1.0-4.8) k/uL POC Glucose (mg/dL) 256 H (75-99) mg/dL
--- NOTE | 2020-05-01 15:46 | P.DS ---
Providers Date of admission: 04/28/20 13:21 Attending physician: Everardo Auguste Consults: 04/28/20 13:21 Consult Physician Urgent Consulting Provider: Luis Fernandez Consult Reason/Comments: nstemi Do you want consulting provider notified?: Yes Primary care physician: Everardo Auguste - Discharge Diagnosis(es) (1) CAD (coronary artery disease) Current Visit: Yes Status: Acute (2) Diabetes Current Visit: Yes Status: Acute (3) NSTEMI (non-ST elevated myocardial infarction) Current Visit: Yes Status: Acute Hospital Course: This is discharge summary on a 65-year-old white male with known history of severe cardiopathy with coronary artery disease with pacemaker. The patient had essentially an NSTEMI. The patient was stabilized from medical perspective cardiology reviewed echocardiogram and previous cardiac catheterization and has now, due to previous diagnostic elements, has approved medical management. Is now stable and will follow up with me in about 3-4 days Plan - Discharge Summary Discharge Rx Participant: No New Discharge Prescriptions: New Furosemide [Lasix] 40 mg PO DAILY #90 tab Zolpidem [Ambien] 5 mg PO HS PRN #30 tab PRN Reason: Insomnia Continue Multivitamins, Thera [Multivitamin (formulary)] 1 tab PO DAILY Melatonin 3 mg PO HS PRN PRN Reason: Insomnia Ranolazine [Ranolazine ER] 500 mg PO BID Ibuprofen [Motrin Ib] 200 mg PO Q8H PRN PRN Reason: Pain Or Fever > 100.5 Clopidogrel Bisulfate [Plavix] 75 mg PO DAILY Aspirin 81 mg PO DAILY lisinopriL [Zestril] 10 mg PO DAILY Pravastatin Sodium [Pravachol] 40 mg PO DAILY Metoprolol Tartrate [Lopressor] 100 mg PO DAILY metFORMIN HCL 1,000 mg PO BID Levothyroxine Sodium [Synthroid] 50 mcg PO DAILY INSULIN LISPRO (humaLOG) [humaLOG] See Protocol SQ AC-TID Insulin Glargine,Hum.rec.anlog [Horacioaglashely Coronel U-100] 50 unit SQ HS Flaxseed Oil [[place]-3 Flaxseed Oil] 1,000 mg PO BID Discharge Medication List Aspirin 81 mg PO DAILY 04/28/20 [History] Clopidogrel Bisulfate [Plavix] 75 mg PO DAILY 04/28/20 [History] Flaxseed Oil [[place]-3 Flaxseed Oil] 1,000 mg PO BID 04/28/20 [History] INSULIN LISPRO (humaLOG) [humaLOG] See Protocol SQ AC-TID 04/28/20 [History] Ibuprofen [Motrin Ib] 200 mg PO Q8H PRN 04/28/20 [History] Insulin Glargine,Hum.rec.anlog [Basaglar Kwikpen U-100] 50 unit SQ HS 04/28/20 [History] Levothyroxine Sodium [Synthroid] 50 mcg PO DAILY 04/28/20 [History] Melatonin 3 mg PO HS PRN 04/28/20 [History] Metoprolol Tartrate [Lopressor] 100 mg PO DAILY 04/28/20 [History] Multivitamins, Thera [Multivitamin (formulary)] 1 tab PO DAILY 04/28/20 [History] Pravastatin Sodium [Pravachol] 40 mg PO DAILY 04/28/20 [History] Ranolazine [Ranolazine ER] 500 mg PO BID 04/28/20 [History] lisinopriL [Zestril] 10 mg PO DAILY 04/28/20 [History] metFORMIN HCL 1,000 mg PO BID 04/28/20 [History] Furosemide [Lasix] 40 mg PO DAILY #90 tab 05/01/20 [Rx] Zolpidem [Ambien] 5 mg PO HS PRN #30 tab 05/01/20 [Rx] Follow up Appointment(s)/Referral(s): Everardo Auguste MD [Primary Care Provider] - 05/07/20 3:00 pm Rodrigo Villar MD [STAFF PHYSICIAN] - 05/05/20 2:45 pm Patient Instructions/Handouts: Heart Attack (DC), Heart Healthy Diet (DC)
[2020-05-02] MEDS ORDERED: INSULIN DETEMIR (LEVEMIR) 100 UNIT/ML SYR SQ SCH (07:00)
[2020-05-02] MEDS ORDERED: FUROSEMIDE 40 MG TAB PO SCH (09:00)
== END 2020-05-01 16:18 | disposition home or self-care (01) | DRG 280 ==
LOC: EC 11:06 → 3SCARD 13:21
PROVIDERS: ADMIT Family Medicine; ATTEND Family Medicine
DX: I21.4 Non-ST elevation (NSTEMI) myocardial infarction (principal); I50.23 Acute on chronic systolic (congestive) heart failure; I11.0 Hypertensive heart disease with heart failure; E11.42 Type 2 diabetes mellitus with diabetic polyneuropathy; I27.22 Pulmonary hypertension due to left heart disease; Z79.4 Long term (current) use of insulin; E11.610 Type 2 diabetes mellitus with diabetic neuropathic arthropathy; Z20.822 Contact with and (suspected) exposure to COVID-19; I25.10 Atherosclerotic heart disease of native coronary artery without angina pectoris; I25.5 Ischemic cardiomyopathy; E78.5 Hyperlipidemia, unspecified; K21.9 Gastro-esophageal reflux disease without esophagitis; M19.90 Unspecified osteoarthritis, unspecified site; E03.9 Hypothyroidism, unspecified; M19.041 Primary osteoarthritis, right hand; M19.042 Primary osteoarthritis, left hand; G43.909 Migraine, unspecified, not intractable, without status migrainosus; E66.9 Obesity, unspecified; I08.1 Rheumatic disorders of both mitral and tricuspid valves; H26.9 Unspecified cataract; Z68.32 Body mass index [BMI] 32.0-32.9, adult; I25.2 Old myocardial infarction; Z79.890 Hormone replacement therapy; Z79.899 Other long term (current) drug therapy; Z79.02 Long term (current) use of antithrombotics/antiplatelets; Z79.82 Long term (current) use of aspirin; Z95.810 Presence of automatic (implantable) cardiac defibrillator; Z95.1 Presence of aortocoronary bypass graft; Z95.5 Presence of coronary angioplasty implant and graft; Z90.79 Acquired absence of other genital organ(s); Z87.01 Personal history of pneumonia (recurrent); Z85.46 Personal history of malignant neoplasm of prostate; Z98.890 Other specified postprocedural states; Z77.22 Contact with and (suspected) exposure to environmental tobacco smoke (acute) (chronic); Z90.49 Acquired absence of other specified parts of digestive tract; Z88.8 Allergy status to other drugs, medicaments and biological substances; Z91.041 Radiographic dye allergy status; Z91.040 Latex allergy status; Z80.42 Family history of malignant neoplasm of prostate; Z83.3 Family history of diabetes mellitus
CPT/HCPCS: 36415; 71046; 80053; 80061; 83735; 83880; 84484; 85025; 85379; 85610; 85730; 87635; 93005; 93306; 96365; 96376; 99291

== ENCOUNTER 2020-08-12 23:19 | Emergency (ER) | payer OTHER, MEDICARE ==
[2020-08-12 23:25] VITALS: BP 129/84; PULSE 86; RESP 18; TEMP 97.7
[2020-08-12 23:27] LABS: Glucose,Whole Blood 238 mg/dL (75-99)
--- NOTE | 2020-08-12 23:39 | ED ---
Recheck HPI - General Chief Complaint: Recheck/Abnormal Lab/Rx Stated Complaint: took wrong meds Time Seen by Provider: 08/12/20 23:26 Source: patient, RN notes reviewed, old records reviewed Mode of arrival: ambulatory Limitations: no limitations - History of Present Illness Initial Comments: This is a 65-year-old male DF for evaluation patient Dese for evaluation of low blood sugar, patient believes he can have low blood sugar secondary taking the wrong medication home. He took his short-acting insulin is taking long-acting. Patient otherwise has no complaints currently and feels MD Complaint: abnormal lab (The wound is []. The wound was copiously irrigated with normal saline and Betadine. The wound was explored for foreign bodies and none were found. The wound was prepped and draped in the normal sterile fashion. The wound was anesthetized using []. The edges were reapproximated using []. Bleedi) -: days(s) Initial Visit For: other (none) Returns Today for: Called Because of Abnormal Lab/Test Symptoms Since Prior Visit: no new symptoms Context: planned re-check Associated Symptoms: none - Related Data Home Medications Medication Instructions Recorded Confirmed Aspirin 81 mg PO DAILY 04/28/20 04/28/20 Clopidogrel Bisulfate [Plavix] 75 mg PO DAILY 04/28/20 04/28/20 Flaxseed Oil [[place]-3 Flaxseed Oil] 1,000 mg PO BID 04/28/20 04/28/20 INSULIN LISPRO (humaLOG) [humaLOG] See Protocol SQ AC-TID 04/28/20 04/28/20 Ibuprofen [Motrin Ib] 200 mg PO Q8H PRN 04/28/20 04/28/20 Insulin Glargine,Hum.rec.anlog 50 unit SQ HS 04/28/20 04/28/20 [Basaglar Kwikpen U-100] Levothyroxine Sodium [Synthroid] 50 mcg PO DAILY 04/28/20 04/28/20 Melatonin 3 mg PO HS PRN 04/28/20 04/28/20 Metoprolol Tartrate [Lopressor] 100 mg PO DAILY 04/28/20 04/28/20 Multivitamins, Thera [Multivitamin 1 tab PO DAILY 04/28/20 04/28/20 (formulary)] Pravastatin Sodium [Pravachol] 40 mg PO DAILY 04/28/20 04/28/20 Ranolazine [Ranolazine ER] 500 mg PO BID 04/28/20 04/28/20 lisinopriL [Zestril] 10 mg PO DAILY 04/28/20 04/28/20 metFORMIN HCL 1,000 mg PO BID 04/28/20 04/28/20 Previous Rx's Medication Instructions Recorded Furosemide [Lasix] 40 mg PO DAILY #90 tab 05/01/20 Zolpidem [Ambien] 5 mg PO HS PRN #30 tab 05/01/20 Allergies Allergy/AdvReac Type Severity Reaction Status Date / Time exenatide [From Byetta] Allergy Rash/Hives Verified 08/12/20 23:21 Iodinated Contrast Media Allergy Unknown Verified 08/12/20 23:21 latex Allergy Rash/Hives Verified 08/12/20 23:21 liraglutide [From Victoza] Allergy Rash/Hives Verified 08/12/20 23:21 Review of Systems ROS Statement: Those systems with pertinent positive or pertinent negative responses have been documented in the HPI. ROS Other: All systems not noted in ROS Statement are negative. Past Medical History Past Medical History: Coronary Artery Disease (CAD), Cancer, Diabetes Mellitus, Eye Disorder, GERD/Reflux, Hyperlipidemia, Hypertension, Myocardial Infarction ([place]), Osteoarthritis (OA), Pneumonia, Prostate Disorder, Thyroid Disorder Additional Past Medical History / Comment(s): IDDM type II, neuropathy bilateral legs/feet, R charcot foot, [place] per EKG, prostate cancer with prostatectomy/then PSA started to climb so he then recieved radiation treatments, hiatal hernis, diverticuliltis with bowel resection, frequent headaches/migraines, arthritis bilateral hands, occasional back pain, hypothyroid, starting of bilateral cataracts. Last Myocardial Infarction Date:: unkn History of Any Multi-Drug Resistant Organisms: None Reported Past Surgical History: Bowel Resection, Coronary Bypass/CABG, Heart Catheterization With Stent, Orthopedic Surgery, Pacemaker, Prostate Surgery Additional Past Surgical History / Comment(s): 2002 CABG 3 vessel, PCI with stents in 2008, pacemaker in 2017, prostatectomy, EGD, colonoscopy, bowel resection, R foot bone removal. Past Anesthesia/Blood Transfusion Reactions: No Reported Reaction Date of Last Stent Placement:: 2008 Type of Cardiac Device: Permanent Pacemaker Device Placement Date:: 2017 Past Psychological History: No Psychological Hx Reported Smoking Status: Never smoker Past Alcohol Use History: None Reported Past Drug Use History: None Reported - Past Family History Father Family Medical History: Cancer Additional Family Medical History / Comment(s): Father of prostate cancer. Mother Family Medical History: Diabetes Mellitus Additional Family Medical History / Comment(s): Mother had heart problems. General Exam Limitations: no limitations General appearance: alert, in no apparent distress Head exam: Present: atraumatic, normocephalic, normal inspection Eye exam: Present: normal appearance, PERRL, EOMI. Absent: scleral icterus, conjunctival injection, periorbital swelling ENT exam: Present: normal exam, mucous membranes moist Neck exam: Present: normal inspection. Absent: tenderness, meningismus, lymphadenopathy Respiratory exam: Present: normal lung sounds bilaterally. Absent: respiratory distress, wheezes, rales, rhonchi, stridor Cardiovascular Exam: Present: regular rate, normal rhythm, normal heart sounds. Absent: systolic murmur, diastolic murmur, rubs, gallop, clicks GI/Abdominal exam: Present: soft, normal bowel sounds. Absent: distended, tenderness, guarding, rebound, rigid Extremities exam: Present: normal inspection, full ROM, normal capillary refill. Absent: tenderness, pedal edema, joint swelling, calf tenderness Back exam: Present: normal inspection Neurological exam: Present: alert, oriented X3, CN II-XII intact Psychiatric exam: Present: normal affect, normal mood Skin exam: Present: warm, dry, intact, normal color. Absent: rash Course Vital Signs 08/12/20 23:21 Temperature 97.7 F Pulse Rate 86 Respiratory 18 Rate Blood Pressure 129/84 O2 Sat by Pulse 97 Oximetry - Reevaluation(s) Reevaluation #1: 08/13/20 01:32 Medical record is reviewed Reevaluation #2: 08/13/20 01:32 Sugar has been fine Medical Decision Making - Medical Decision Making 65 male DF for evaluation patient Dese for evaluation of low blood sugar. Possible low blood sugar secondary around medication. Patient has been fine throughout ER stay can be discharged home - Lab Data Lab Results 08/12/20 08/12/20 08/13/20 Range/Units 23:26 23:54 00:14 POC Glucose (mg/dL) 238 H 148 H 138 H (75-99) mg/dL POC Glu Trolley Cleaner ID King Yuly Gutierrez James Larson 08/13/20 Range/Units 01:17 POC Glucose (mg/dL) 147 H (75-99) mg/dL POC Glu Trolley Cleaner ID Yuly Ellis Disposition Clinical Impression: Hypoglycemia Disposition: HOME SELF-CARE Condition: Good Instructions (If sedation given, give patient instructions): Hypoglycemia in a Person with Diabetes (ED) Is patient prescribed a controlled substance at d/c from ED?: No Referrals: Everardo Auguste MD [Primary Care Provider] - 1-2 days
[2020-08-12 23:55] LABS: Glucose,Whole Blood 148 mg/dL (75-99)
[2020-08-13 00:16] LABS: Glucose,Whole Blood 138 mg/dL (75-99)
[2020-08-13 01:18] LABS: Glucose,Whole Blood 147 mg/dL (75-99)
== END 2020-08-13 02:39 | disposition home or self-care (01) ==
LOC: EC 23:19
DX: E11.649 Type 2 diabetes mellitus with hypoglycemia without coma (principal); E03.9 Hypothyroidism, unspecified; E78.5 Hyperlipidemia, unspecified; I10 Essential (primary) hypertension; I25.10 Atherosclerotic heart disease of native coronary artery without angina pectoris; E11.36 Type 2 diabetes mellitus with diabetic cataract; I25.2 Old myocardial infarction; K21.9 Gastro-esophageal reflux disease without esophagitis; M19.041 Primary osteoarthritis, right hand; M19.042 Primary osteoarthritis, left hand; Z79.4 Long term (current) use of insulin; Z79.82 Long term (current) use of aspirin; Z85.46 Personal history of malignant neoplasm of prostate; Z79.1 Long term (current) use of non-steroidal anti-inflammatories (NSAID); Z95.1 Presence of aortocoronary bypass graft; Z95.0 Presence of cardiac pacemaker; Z95.5 Presence of coronary angioplasty implant and graft; Z90.79 Acquired absence of other genital organ(s)
CPT/HCPCS: 36415; 99283

== ENCOUNTER 2020-09-26 00:19 | Emergency (ER) | payer MEDICARE, OTHER ==
[2020-09-26 00:24] VITALS: TEMP 97.9
[2020-09-26 00:37] LABS: Glucose,Whole Blood 226 mg/dL (75-99)
[2020-09-26 01:01] LABS: Basophils % (A) 1 %; Eosinophils # (A) 0.2 k/uL (0-0.7); Eosinophils % (A) 3 %; HCT 40.7 % (39.0-53.0); HGB 14.2 gm/dL (13.0-17.5); Lymphocytes # (A) 0.9 k/uL (1.0-4.8); Lymphocytes % (A) 13 %; MCH 31.2 pg (25.0-35.0); MCHC 34.8 g/dL (31.0-37.0); MCV 89.7 fL (80.0-100.0); Mean Platelet Volume 7.9; Monocytes # (A) 0.4 k/uL (0-1.0); Monocytes % (A) 6 %; Neutrophils # (A) 5.1 k/uL (1.3-7.7); Neutrophils % (A) 76 %; Platelet Count 143 k/uL (150-450); RBC 4.54 m/uL (4.30-5.90); RDW 14.8 % (11.5-15.5); WBC 6.7 k/uL (3.8-10.6)
[2020-09-26 01:07] LABS: Glucose,Whole Blood 180 mg/dL (75-99)
[2020-09-26 01:10] LABS: ALT 18 U/L (4-49); AST 21 U/L (17-59); African American GFR (CKD) >90 (>60 ml/min/1.73 sqM); Albumin 4.3 g/dL (3.5-5.0); Alkaline Phosphatase 51 U/L (38-126); Anion Gap 8 mmol/L; Blood Urea Nitrogen 20 mg/dL (9-20); Calcium 9.9 mg/dL (8.4-10.2); Carbon Dioxide 27 mmol/L (22-30); Chloride 102 mmol/L (98-107); Glucose 210 mg/dL (74-99); Non-African American GFR(CKD) 84 (>60 ml/min/1.73 sqM); Potassium 4.2 mmol/L (3.5-5.1); Sodium 137 mmol/L (137-145); Total Bilirubin 0.3 mg/dL (0.2-1.3); Total Protein 6.7 g/dL (6.3-8.2)
[2020-09-26 01:33] LABS: Glucose,Whole Blood 164 mg/dL (75-99)
[2020-09-26 02:06] LABS: Glucose,Whole Blood 132 mg/dL (75-99)
[2020-09-26 02:35] LABS: Glucose,Whole Blood 137 mg/dL (75-99)
--- NOTE | 2020-09-26 03:03 | ED ---
Recheck HPI - General Chief Complaint: Recheck/Abnormal Lab/Rx Stated Complaint: too much insulin Time Seen by Provider: 09/26/20 00:25 Source: patient, family Mode of arrival: ambulatory Limitations: no limitations - History of Present Illness Initial Comments: 65-year-old male patient presents to the emergency department today for evaluation after accidentally overdosing on his humalog insulin. States he was intending to take basiglar and injected his humalog instead. Patient states he is feeling fine. States he did something similar a couple of weeks ago and had to come in. He took the medication 45 minutes ago. - Related Data Home Medications Medication Instructions Recorded Confirmed Aspirin 81 mg PO DAILY 04/28/20 04/28/20 Clopidogrel Bisulfate [Plavix] 75 mg PO DAILY 04/28/20 04/28/20 Flaxseed Oil [[place]-3 Flaxseed Oil] 1,000 mg PO BID 04/28/20 04/28/20 INSULIN LISPRO (humaLOG) [humaLOG] See Protocol SQ AC-TID 04/28/20 04/28/20 Ibuprofen [Motrin Ib] 200 mg PO Q8H PRN 04/28/20 04/28/20 Insulin Glargine,Hum.rec.anlog 50 unit SQ HS 04/28/20 04/28/20 [Basaglar Kwikpen U-100] Levothyroxine Sodium [Synthroid] 50 mcg PO DAILY 04/28/20 04/28/20 Melatonin 3 mg PO HS PRN 04/28/20 04/28/20 Metoprolol Tartrate [Lopressor] 100 mg PO DAILY 04/28/20 04/28/20 Multivitamins, Thera [Multivitamin 1 tab PO DAILY 04/28/20 04/28/20 (formulary)] Pravastatin Sodium [Pravachol] 40 mg PO DAILY 04/28/20 04/28/20 Ranolazine [Ranolazine ER] 500 mg PO BID 04/28/20 04/28/20 lisinopriL [Zestril] 10 mg PO DAILY 04/28/20 04/28/20 metFORMIN HCL 1,000 mg PO BID 04/28/20 04/28/20 Previous Rx's Medication Instructions Recorded Furosemide [Lasix] 40 mg PO DAILY #90 tab 05/01/20 Zolpidem [Ambien] 5 mg PO HS PRN #30 tab 05/01/20 Allergies Allergy/AdvReac Type Severity Reaction Status Date / Time exenatide [From Byetta] Allergy Rash/Hives Verified 09/26/20 00:24 Iodinated Contrast Media Allergy Unknown Verified 09/26/20 00:24 latex Allergy Rash/Hives Verified 09/26/20 00:24 liraglutide [From Victoza] Allergy Rash/Hives Verified 09/26/20 00:24 Review of Systems ROS Statement: Those systems with pertinent positive or pertinent negative responses have been documented in the HPI. ROS Other: All systems not noted in ROS Statement are negative. Past Medical History Past Medical History: Coronary Artery Disease (CAD), Cancer, Diabetes Mellitus, Eye Disorder, GERD/Reflux, Hyperlipidemia, Hypertension, Myocardial Infarction ([place]), Osteoarthritis ([place]), Pneumonia, Prostate Disorder, Thyroid Disorder Additional Past Medical History / Comment(s): IDDM type II, neuropathy bilateral legs/feet, R charcot foot, [place] per EKG, prostate cancer with prostatectomy/then PSA started to climb so he then recieved radiation treatments, hiatal hernis, diverticuliltis with bowel resection, frequent headaches/migraines, arthritis bilateral hands, occasional back pain, hypothyroid, starting of bilateral cataracts. Last Myocardial Infarction Date:: unkn History of Any Multi-Drug Resistant Organisms: None Reported Past Surgical History: Bowel Resection, Coronary Bypass/CABG, Heart Catheterization With Stent, Orthopedic Surgery, Pacemaker, Prostate Surgery Additional Past Surgical History / Comment(s): 2002 CABG 3 vessel, PCI with stents in 2008, pacemaker in 2017, prostatectomy, EGD, colonoscopy, bowel resection, R foot bone removal. Past Anesthesia/Blood Transfusion Reactions: No Reported Reaction Date of Last Stent Placement:: 2008 Type of Cardiac Device: Permanent Pacemaker Device Placement Date:: 2017 Past Psychological History: No Psychological Hx Reported Smoking Status: Never smoker Past Alcohol Use History: None Reported Past Drug Use History: None Reported - Past Family History Father Family Medical History: Cancer Additional Family Medical History / Comment(s): Father of prostate cancer. Mother Family Medical History: Diabetes Mellitus Additional Family Medical History / Comment(s): Mother had heart problems. General Exam Limitations: no limitations General appearance: alert, in no apparent distress Respiratory exam: Present: normal lung sounds bilaterally. Absent: respiratory distress, wheezes, rales, rhonchi, stridor Cardiovascular Exam: Present: regular rate, normal rhythm, normal heart sounds. Absent: systolic murmur, diastolic murmur, rubs, gallop, clicks GI/Abdominal exam: Present: soft, normal bowel sounds. Absent: distended, tenderness, guarding, rebound, rigid Neurological exam: Present: alert, oriented X3, CN II-XII intact Psychiatric exam: Present: normal affect, normal mood Skin exam: Present: warm, dry, intact, normal color. Absent: rash Course Vital Signs 09/26/20 09/26/20 00:19 03:18 Temperature 97.9 F Pulse Rate 81 83 Respiratory 20 18 Rate Blood Pressure 148/87 124/71 O2 Sat by Pulse 100 97 Oximetry Medical Decision Making - Medical Decision Making 65-year-old male patient presented to the emergency department today for evaluation after accidentally taking Humalog instead of Lantus. 60 units about 45 minutes prior to arrival. Physical examination is unremarkable. Labs reviewed and were unremarkable. Patient was given juice and a meal. We did monitor his blood sugars are approximately 3 hours. He started trending up last blood sugar was 187. He does feel comfortable being discharged at this time. His plan is to separate his Lantus and Humalog pen and separate fridges. He is instructed to follow-up with his primary care physician for recheck in 1-2 days. Return parameters were discussed in detail. He verbalizes understanding and agrees with this plan. Case discussed with my attending Dr. Turk. - Lab Data Result diagrams: 09/26/20 00:42 09/26/20 00:42 Lab Results 09/26/20 09/26/20 09/26/20 Range/Units 00:30 00:42 00:42 WBC 6.7 (3.8-10.6) k/uL RBC 4.54 (4.30-5.90) m/uL Hgb 14.2 (13.0-17.5) gm/dL Hct 40.7 (39.0-53.0) % MCV 89.7 (80.0-100.0) fL MCH 31.2 (25.0-35.0) pg MCHC 34.8 (31.0-37.0) g/dL RDW 14.8 (11.5-15.5) % Plt Count 143 L (150-450) k/uL MPV 7.9 Neutrophils % 76 % Lymphocytes % 13 % Monocytes % 6 % Eosinophils % 3 % Basophils % 1 % Neutrophils # 5.1 (1.3-7.7) k/uL Lymphocytes # 0.9 L (1.0-4.8) k/uL Monocytes # 0.4 (0-1.0) k/uL Eosinophils # 0.2 (0-0.7) k/uL Basophils # 0.0 (0-0.2) k/uL Sodium 137 (137-145) mmol/L Potassium 4.2 (3.5-5.1) mmol/L Chloride 102 (98-107) mmol/L Carbon Dioxide 27 (22-30) mmol/L Anion Gap 8 mmol/L BUN 20 (9-20) mg/dL Creatinine 0.94 (0.66-1.25) mg/dL Est GFR (CKD-EPI)AfAm >90 (>60 ml/min/1.73 sqM) Est GFR (CKD-EPI)NonAf 84 (>60 ml/min/1.73 sqM) Glucose 210 H (74-99) mg/dL POC Glucose (mg/dL) 226 H (75-99) mg/dL POC Glu Die Trouble Shooter ID Fetterly, Zeny Calcium 9.9 (8.4-10.2) mg/dL Total Bilirubin 0.3 (0.2-1.3) mg/dL AST 21 (17-59) U/L ALT 18 (4-49) U/L Alkaline Phosphatase 51 (38-126) U/L Total Protein 6.7 (6.3-8.2) g/dL Albumin 4.3 (3.5-5.0) g/dL 09/26/20 09/26/20 09/26/20 Range/Units 01:00 01:31 02:00 WBC (3.8-10.6) k/uL RBC (4.30-5.90) m/uL Hgb (13.0-17.5) gm/dL Hct (39.0-53.0) % MCV (80.0-100.0) fL MCH (25.0-35.0) pg MCHC (31.0-37.0) g/dL RDW (11.5-15.5) % Plt Count (150-450) k/uL MPV Neutrophils % % Lymphocytes % % Monocytes % % Eosinophils % % Basophils % % Neutrophils # (1.3-7.7) k/uL Lymphocytes # (1.0-4.8) k/uL Monocytes # (0-1.0) k/uL Eosinophils # (0-0.7) k/uL Basophils # (0-0.2) k/uL Sodium (137-145) mmol/L Potassium (3.5-5.1) mmol/L Chloride (98-107) mmol/L Carbon Dioxide (22-30) mmol/L Anion Gap mmol/L BUN (9-20) mg/dL Creatinine (0.66-1.25) mg/dL Est GFR (CKD-EPI)AfAm (>60 ml/min/1.73 sqM) Est GFR (CKD-EPI)NonAf (>60 ml/min/1.73 sqM) Glucose (74-99) mg/dL POC Glucose (mg/dL) 180 H 164 H 132 H (75-99) mg/dL POC Glu Die Trouble Shooter Zeny Truong Taylor Fetterly, Samantha Calcium (8.4-10.2) mg/dL Total Bilirubin (0.2-1.3) mg/dL AST (17-59) U/L ALT (4-49) U/L Alkaline Phosphatase (38-126) U/L Total Protein (6.3-8.2) g/dL Albumin (3.5-5.0) g/dL 09/26/20 09/26/20 Range/Units 02:33 03:03 WBC (3.8-10.6) k/uL RBC (4.30-5.90) m/uL Hgb (13.0-17.5) gm/dL Hct (39.0-53.0) % MCV (80.0-100.0) fL MCH (25.0-35.0) pg MCHC (31.0-37.0) g/dL RDW (11.5-15.5) % Plt Count (150-450) k/uL MPV Neutrophils % % Lymphocytes % % Monocytes % % Eosinophils % % Basophils % % Neutrophils # (1.3-7.7) k/uL Lymphocytes # (1.0-4.8) k/uL Monocytes # (0-1.0) k/uL Eosinophils # (0-0.7) k/uL Basophils # (0-0.2) k/uL Sodium (137-145) mmol/L Potassium (3.5-5.1) mmol/L Chloride (98-107) mmol/L Carbon Dioxide (22-30) mmol/L Anion Gap mmol/L BUN (9-20) mg/dL Creatinine (0.66-1.25) mg/dL Est GFR (CKD-EPI)AfAm (>60 ml/min/1.73 sqM) Est GFR (CKD-EPI)NonAf (>60 ml/min/1.73 sqM) Glucose (74-99) mg/dL POC Glucose (mg/dL) 137 H 187 H (75-99) mg/dL POC Glu Die Trouble Shooter ID Gypsy Hawkins Samantha Calcium (8.4-10.2) mg/dL Total Bilirubin (0.2-1.3) mg/dL AST (17-59) U/L ALT (4-49) U/L Alkaline Phosphatase (38-126) U/L Total Protein (6.3-8.2) g/dL Albumin (3.5-5.0) g/dL Disposition Clinical Impression: Insulin overdose Disposition: HOME SELF-CARE Condition: Good Instructions (If sedation given, give patient instructions): Insulin Lispro (By injection) Additional Instructions: Follow up with your primary care physician for recheck in 1-2 days. Monitor your blood sugars closely. Return for any new, worsening, or concerning sympt oms. Is patient prescribed a controlled substance at d/c from ED?: No Referrals: Everardo Auguste MD [Primary Care Provider] - 1-2 days Time of Disposition: 03:12
[2020-09-26 03:05] LABS: Glucose,Whole Blood 187 mg/dL (75-99)
[2020-09-26 03:19] VITALS: BP 124/71; PULSE 83; RESP 18
== END 2020-09-26 03:19 | disposition home or self-care (01) ==
LOC: EC 00:19
DX: T38.3X1A Poisoning by insulin and oral hypoglycemic [antidiabetic] drugs, accidental (unintentional), initial encounter (principal); I10 Essential (primary) hypertension; E11.40 Type 2 diabetes mellitus with diabetic neuropathy, unspecified; E78.5 Hyperlipidemia, unspecified; K21.9 Gastro-esophageal reflux disease without esophagitis; I25.10 Atherosclerotic heart disease of native coronary artery without angina pectoris; I25.2 Old myocardial infarction; E03.9 Hypothyroidism, unspecified; Z79.4 Long term (current) use of insulin; Z79.82 Long term (current) use of aspirin; Z79.890 Hormone replacement therapy
CPT/HCPCS: 36415; 80053; 85025; 99284

== ENCOUNTER 2021-03-02 09:56 | Inpatient (IN) | payer MEDICARE, BC ==
[2021-03-02] MEDS ORDERED: VANCOMYCIN IV PER PHARMACY 1 EACH MISC MISCELLANE PRN (10:27)
[2021-03-02] MEDS ORDERED: AMPICILLIN-SULBACTAM 3 GM in SODIUM CHLORIDE 0.9% 100 ML IVPB STA (10:29)
[2021-03-02] MEDS ORDERED: VANCOMYCIN 1,750 MG in SODIUM CHLORIDE 0.9% 500 ML 500 ML IVPB STA (10:36)
[2021-03-02] MEDS: SODIUM CHLORIDE 0.9% 500 ML 500 ML IV SCH ×2 (10:54→11:52)
[2021-03-02 10:56] LABS: Basophils % (A) 0 %; Eosinophils # (A) 0.2 k/uL (0-0.7); Eosinophils % (A) 1 %; HCT 38.1 % (39.0-53.0); HGB 13.1 gm/dL (13.0-17.5); Lymphocytes # (A) 0.8 k/uL (1.0-4.8); Lymphocytes % (A) 6 %; MCH 30.7 pg (25.0-35.0); MCHC 34.4 g/dL (31.0-37.0); MCV 89.4 fL (80.0-100.0); Mean Platelet Volume 7.9; Monocytes # (A) 0.8 k/uL (0-1.0); Monocytes % (A) 6 %; Neutrophils # (A) 11.3 k/uL (1.3-7.7); Neutrophils % (A) 84 %; Platelet Count 232 k/uL (150-450); RBC 4.26 m/uL (4.30-5.90); RDW 14.3 % (11.5-15.5); WBC 13.5 k/uL (3.8-10.6)
[2021-03-02 11:08] LABS: Albumin 4.3 g/dL (3.5-5.0); Calcium 10.4 mg/dL (8.4-10.2); Potassium 4.4 mmol/L (3.5-5.1); Total Bilirubin 0.7 mg/dL (0.2-1.3); Total Protein 7.5 g/dL (6.3-8.2)
--- NOTE | 2021-03-02 11:37 | ED ---
General Adult HPI - General Chief complaint: Extremity Injury, Lower Stated complaint: possible infection in foot Time Seen by Provider: 03/02/21 10:08 Source: patient Mode of arrival: ambulatory Limitations: no limitations - History of Present Illness Initial comments: 66-year-old male with a complicated past medical history including pertinent history of IDDM type II and diabetic neuropathy in the legs is Charcot foot presents to the emergency room for a chief complaint of right foot infection. Patient states several years ago he had some bones removed from his foot. States that 3 days ago he started to have some redness on the forefoot and some swelling especially of the right third toe. States it is foul smelling. Patient is concerned it could be infected. States his guest associate will be back in the office until next Monday and he is concerned he should not wait that long. He denies any fevers.Patient has no other complaints at this time including shortness of breath, chest pain, abdominal pain, nausea or vomiting, headache, or visual changes. - Related Data Home Medications Medication Instructions Recorded Confirmed Aspirin 81 mg PO DAILY 04/28/20 04/28/20 Clopidogrel Bisulfate [Plavix] 75 mg PO DAILY 04/28/20 04/28/20 INSULIN LISPRO (humaLOG) [humaLOG] See Protocol SQ AC-TID 04/28/20 04/28/20 Ibuprofen [Motrin Ib] 200 mg PO Q8H PRN 04/28/20 04/28/20 Insulin Glargine,Hum.rec.anlog 50 unit SQ HS 04/28/20 04/28/20 [Basaglar Kwikpen U-100] Levothyroxine Sodium [Synthroid] 50 mcg PO DAILY 04/28/20 04/28/20 Melatonin 3 mg PO HS PRN 04/28/20 04/28/20 Metoprolol Tartrate [Lopressor] 100 mg PO DAILY 04/28/20 04/28/20 Multivitamins, Thera [Multivitamin 1 tab PO DAILY 04/28/20 04/28/20 (formulary)] Pravastatin Sodium [Pravachol] 40 mg PO DAILY 04/28/20 04/28/20 Ranolazine [Ranolazine ER] 500 mg PO BID 04/28/20 04/28/20 flaxseed oiL [[place]-3 Flaxseed Oil] 1,000 mg PO BID 04/28/20 04/28/20 lisinopriL [Zestril] 10 mg PO DAILY 04/28/20 04/28/20 metFORMIN HCL [Glucophage] 1,000 mg PO BID 04/28/20 04/28/20 Previous Rx's Medication Instructions Recorded Furosemide [Lasix] 40 mg PO DAILY #90 tab 05/01/20 Zolpidem [Ambien] 5 mg PO HS PRN #30 tab 05/01/20 Allergies Allergy/AdvReac Type Severity Reaction Status Date / Time exenatide [From Byetta] Allergy Rash/Hives Verified 03/02/21 10:04 Iodinated Contrast Media Allergy Unknown Verified 03/02/21 10:04 latex Allergy Rash/Hives Verified 03/02/21 10:04 liraglutide [From Victoza] Allergy Rash/Hives Verified 03/02/21 10:04 Review of Systems ROS Statement: Those systems with pertinent positive or pertinent negative responses have been documented in the HPI. ROS Other: All systems not noted in ROS Statement are negative. Past Medical History Past Medical History: Coronary Artery Disease (CAD), Cancer, Diabetes Mellitus, Eye Disorder, GERD/Reflux, Hyperlipidemia, Hypertension, Myocardial Infarction ([place]), Osteoarthritis ([place]), Pneumonia, Prostate Disorder, Thyroid Disorder Additional Past Medical History / Comment(s): IDDM type II, neuropathy bilateral legs/feet, R charcot foot, [place] per EKG, prostate cancer with prostatectomy/then PSA started to climb so he then recieved radiation treatments, hiatal hernis, diverticuliltis with bowel resection, frequent headaches/migraines, arthritis bilateral hands, occasional back pain, hypothyroid, starting of bilateral cataracts. Last Myocardial Infarction Date:: unkn History of Any Multi-Drug Resistant Organisms: None Reported Past Surgical History: Bowel Resection, Coronary Bypass/CABG, Heart Catheterization With Stent, Orthopedic Surgery, Pacemaker, Prostate Surgery Additional Past Surgical History / Comment(s): 2002 CABG 3 vessel, PCI with stents in 2008, pacemaker in 2017, prostatectomy, EGD, colonoscopy, bowel resection, R foot bone removal. Past Anesthesia/Blood Transfusion Reactions: No Reported Reaction Date of Last Stent Placement:: 2008 Type of Cardiac Device: Permanent Pacemaker Device Placement Date:: 2017 Past Psychological History: No Psychological Hx Reported Smoking Status: Never smoker Past Alcohol Use History: None Reported Past Drug Use History: None Reported - Past Family History Father Family Medical History: Cancer Additional Family Medical History / Comment(s): Father of prostate cancer. Mother Family Medical History: Diabetes Mellitus Additional Family Medical History / Comment(s): Mother had heart problems. General Exam Limitations: no limitations General appearance: alert, in no apparent distress Head exam: Present: atraumatic Eye exam: Present: normal appearance, PERRL, EOMI. Absent: scleral icterus, conjunctival injection ENT exam: Present: normal exam, mucous membranes moist Neck exam: Present: normal inspection, full ROM. Absent: tenderness Respiratory exam: Present: normal lung sounds bilaterally. Absent: respiratory distress, wheezes Cardiovascular Exam: Present: regular rate, normal rhythm, normal heart sounds Extremities exam: Present: normal capillary refill (< 2 seconds R foot, dusky 3rd digit.), other (erythema of the R dorsal forefoot with edema and gangrenous 3rd toe.) Neurological exam: Present: alert Course Vital Signs 03/02/21 10:01 Temperature 98.6 F Pulse Rate 87 Respiratory 20 Rate Blood Pressure 99/62 O2 Sat by Pulse 98 Oximetry Medical Decision Making - Medical Decision Making Vitals are stable. Patient does have leukocytosis. Glucose is elevated at 235, does have a history. X-ray of the right foot shows recurrent acute osteomyelitis involving the third toe. He should started on broad-spectrum antibiotics. Blood culture pending. Case discussed with Dr. Auguste who does accept the admission, request infectious disease and orthopedic consultation. - Lab Data Result diagrams: 03/02/21 10:38 03/02/21 10:38 Lab Results 03/02/21 03/02/21 03/02/21 Range/Units 10:38 10:38 10:38 WBC 13.5 H (3.8-10.6) k/uL RBC 4.26 L (4.30-5.90) m/uL Hgb 13.1 (13.0-17.5) gm/dL Hct 38.1 L (39.0-53.0) % MCV 89.4 (80.0-100.0) fL MCH 30.7 (25.0-35.0) pg MCHC 34.4 (31.0-37.0) g/dL RDW 14.3 (11.5-15.5) % Plt Count 232 (150-450) k/uL MPV 7.9 Neutrophils % 84 % Lymphocytes % 6 % Monocytes % 6 % Eosinophils % 1 % Basophils % 0 % Neutrophils # 11.3 H (1.3-7.7) k/uL Lymphocytes # 0.8 L (1.0-4.8) k/uL Monocytes # 0.8 (0-1.0) k/uL Eosinophils # 0.2 (0-0.7) k/uL Basophils # 0.0 (0-0.2) k/uL Sodium 135 L (137-145) mmol/L Potassium 4.4 (3.5-5.1) mmol/L Chloride 94 L (98-107) mmol/L Carbon Dioxide 28 (22-30) mmol/L Anion Gap 13 mmol/L BUN 29 H (9-20) mg/dL Creatinine 1.28 H (0.66-1.25) mg/dL Est GFR (CKD-EPI)AfAm 66 (>60 ml/min/1.73 sqM) Est GFR (CKD-EPI)NonAf 57 (>60 ml/min/1.73 sqM) Glucose 235 H (74-99) mg/dL Plasma Lactic Acid Chris 1.4 (0.7-2.0) mmol/L Calcium 10.4 H (8.4-10.2) mg/dL Total Bilirubin 0.7 (0.2-1.3) mg/dL AST 22 (17-59) U/L ALT 20 (4-49) U/L Alkaline Phosphatase 77 (38-126) U/L Total Protein 7.5 (6.3-8.2) g/dL Albumin 4.3 (3.5-5.0) g/dL Disposition Clinical Impression: Osteomyelitis, Cellulitis, Leukocytosis, Dehydration, Hyperglycemia Disposition: ADMITTED IP TO THIS HOSP Is patient prescribed a controlled substance at d/c from ED?: No Referrals: Everardo Auguste MD [Primary Care Provider] - 1-2 days Time of Disposition: 12:25
--- NOTE | 2021-03-02 11:44 | XR ---
EXAMINATION TYPE: XR foot complete RT DATE OF EXAM: 03/02/2021 CLINICAL HISTORY: Swelling and pain worse over third and fourth digits TECHNIQUE: Frontal, lateral, and oblique images of the right foot are obtained. COMPARISON: None FINDINGS: Small inferior calcaneal spur. Nonvisualization of the fourth toe past the distal diaphysis of the proximal phalanx where there is sclerotic margin. Suspect prior amputation at this level. Correlate clinically. Surgical defect third toe distally suspected, but there is irregular lucency in the remnant middle ph alanx with focal moderate to severe soft tissue swelling in the third toe. Recurrent acute osteomyeli tis at this level likely present. Some well-defined deformity fifth toe at the PIP joint could reflect products of prior trauma or surg lynnette. Marked flexion in the distal second toe makes evaluation at this level suboptimal. No suspicious bony destruction. Moderate midfoot spurring and narrowing. Mild to moderate diffuse subcutaneous edema and soft tissue swelling. IMPRESSION: As above. Likely recurrent acute osteomyelitis involving the third toe.
[2021-03-02] MEDS ORDERED: NALOXONE 0.4 MG/ML 1 ML VIAL IV PRN (12:26)
[2021-03-02] MEDS: SODIUM CHLORIDE 0.9% 1,000 ML IV SCH ×2 (12:44→19:52)
[2021-03-02] MEDS: INSULIN ASPART (NovoLOG) 100 UNIT/ML VIAL SQ SCH ×3 (12:44→20:40)
[2021-03-02 17:02] LABS: Glucose,Whole Blood 169 mg/dL (75-99)
[2021-03-02] MEDS: ACETAMINOPHEN TAB 325 MG TAB PO PRN (17:16)
[2021-03-02] MEDS: AMPICILLIN-SULBACTAM 3 GM in SODIUM CHLORIDE 0.9% 100 ML IVPB SCH (18:27)
[2021-03-02 20:38] LABS: Glucose,Whole Blood 235 mg/dL (75-99)
[2021-03-02] MEDS ORDERED: ACETAMINOPHEN TAB 325 MG TAB ONE (22:45)
[2021-03-03] MEDS: AMPICILLIN-SULBACTAM 3 GM in SODIUM CHLORIDE 0.9% 100 ML IVPB SCH ×5 (03:16→23:12)
[2021-03-03] MEDS: SODIUM CHLORIDE 0.9% 1,000 ML IV SCH ×3 (04:08→20:46)
[2021-03-03] MEDS: VANCOMYCIN 1,750 MG in SODIUM CHLORIDE 0.9% 500 ML 500 ML IVPB SCH ×2 (04:44→19:08)
[2021-03-03] MEDS: ACETAMINOPHEN TAB 325 MG TAB PO PRN ×3 (05:28→19:09)
[2021-03-03 07:43] LABS: Glucose,Whole Blood 185 mg/dL (75-99)
[2021-03-03] MEDS ORDERED: POTASSIUM CHLORIDE ER 20 MEQ TAB.ER PO PRN (08:12)
[2021-03-03] MEDS ORDERED: MELATONIN 3 MG TABLET PO PRN (08:12)
[2021-03-03] MEDS ORDERED: metOLazone 2.5 MG TAB PO PRN (08:12)
[2021-03-03] MEDS ORDERED: IBUPROFEN 200 MG TAB PO PRN (08:12)
[2021-03-03] MEDS ORDERED: ZOLPIDEM 5 MG TAB PO PRN (08:12)
--- NOTE | 2021-03-03 08:20 | P.HPIM ---
History of Present Illness Chief Complaint: Black toe This is a history and physical an 66-year-old white male with known history of long-term type 2 diabetes who states over this past weekend his toe started becoming gangrenous appearing and black. It started draining. He came in and was evaluated in the emergency room and was shown to have ostial myelitis most likely on plain film. The patient states minimal pain. Blood sugar has been f airly well-controlled. Underlying history of myocardial infarction. We will restart home medications. Otherwise no overt fever. Minimal pain. No voiding difficulties. No nausea, vomiting or diarrhea stated. Dorsum of his right foot and third digit has significant cellulitis. Review of Systems Constitutional: Denies chills, Denies fever Eyes: denies blurred vision, denies pain Ears, nose, mouth and throat: Denies headache, Denies sore throat Cardiovascular: Denies chest pain, Denies shortness of breath Respiratory: Denies cough Gastrointestinal: Denies abdominal pain, Denies diarrhea, Denies nausea, Denies vomiting Musculoskeletal: Denies myalgias Integumentary: Reports as per HPI, Reports darkening of skin, Reports rash Past Medical History Past Medical History: Coronary Artery Disease (CAD), Cancer, Diabetes Mellitus, Eye Disorder, GERD/Reflux, Hyperlipidemia, Hypertension, Myocardial Infarction ([place]), Osteoarthritis (OA), Pneumonia, Prostate Disorder, Thyroid Disorder Additional Past Medical History / Comment(s): IDDM type II, neuropathy bilateral legs/feet, R charcot foot, [place] per EKG, prostate cancer with prostatectomy/then PSA started to climb so he then recieved radiation treatments, hiatal hernis, diverticuliltis with bowel resection, frequent headaches/migraines, arthritis bilateral hands, occasional back pain, hypothyroid, starting of bilateral cataracts. Last Myocardial Infarction Date:: unkn History of Any Multi-Drug Resistant Organisms: None Reported Past Surgical History: Bowel Resection, Coronary Bypass/CABG, Heart Catheterization With Stent, Orthopedic Surgery, Pacemaker, Prostate Surgery Additional Past Surgical History / Comment(s): 2002 CABG 3 vessel, PCI with stents in 2008, pacemaker in 2017, prostatectomy, EGD, colonoscopy, bowel resection, R foot bone removal. Past Anesthesia/Blood Transfusion Reactions: No Reported Reaction Date of Last Stent Placement:: 2008 Type of Cardiac Device: Permanent Pacemaker Device Placement Date:: 2017 Past Psychological History: No Psychological Hx Reported Additional Psychological History / Comment(s): Pt and his spouse moved from [facility] 2019 into his brothers home. 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 He drives. He served in the [employer]. Smoking Status: Never smoker Past Alcohol Use History: None Reported Past Drug Use History: None Reported - Past Family History Father Family Medical History: Cancer Additional Family Medical History / Comment(s): Father of prostate cancer. Mother Family Medical History: Diabetes Mellitus Additional Family Medical History / Comment(s): Mother had heart problems. Medications and Allergies Home Medications Medication Instructions Recorded Confirmed Type Aspirin 81 mg PO DAILY 04/28/20 03/02/21 History Clopidogrel Bisulfate [Plavix] 75 mg PO DAILY 04/28/20 03/02/21 History INSULIN LISPRO (humaLOG) [humaLOG] See Protocol SQ AC-TID 04/28/20 03/02/21 History Ibuprofen [Motrin Ib] 200 mg PO Q8H PRN 04/28/20 03/02/21 History Insulin Glargine,Hum.rec.anlog 60 unit SQ HS 04/28/20 03/02/21 History [Basaglar Kwikpen U-100] Levothyroxine Sodium [Synthroid] 50 mcg PO DAILY 04/28/20 03/02/21 History Melatonin 3 mg PO HS PRN 04/28/20 03/02/21 History Multivitamins, Thera [Multivitamin 1 tab PO DAILY 04/28/20 03/02/21 History (formulary)] Pravastatin Sodium [Pravachol] 40 mg PO DAILY 04/28/20 03/02/21 History Ranolazine [Ranolazine ER] 500 mg PO BID 04/28/20 03/02/21 History flaxseed oiL [[place]-3 Flaxseed Oil] 1,000 mg PO BID 04/28/20 03/02/21 History lisinopriL [Zestril] 10 mg PO DAILY 04/28/20 03/02/21 History Furosemide [Lasix] 40 mg PO DAILY #90 tab 05/01/20 03/02/21 Rx Zolpidem [Ambien] 5 mg PO HS PRN #30 tab 05/01/20 03/02/21 Rx Amiodarone [Cordarone] 200 mg PO DAILY 03/02/21 03/02/21 History Isosorbide Mononitrate ER [Imdur] 60 mg PO DAILY 03/02/21 03/02/21 History Metoprolol Succinate (ER) [Toprol 100 mg PO DAILY 03/02/21 03/02/21 History Xl] Potassium Chloride [Klor-Con 20] 20 meq PO DAILY PRN 03/02/21 03/02/21 History metFORMIN HCL ER [Glucophage XR] 1,000 mg PO BID 03/02/21 03/02/21 History metOLazone 2.5 mg PO DAILY PRN 03/02/21 03/02/21 History Allergies Allergy/AdvReac Type Severity Reaction Status Date / Time exenatide [From Byetta] Allergy Rash/Hives Verified 03/02/21 13:12 Iodinated Contrast Media Allergy Unknown Verified 03/02/21 13:12 latex Allergy Rash/Hives Verified 03/02/21 13:12 liraglutide [From Victoza] Allergy Rash/Hives Verified 03/02/21 13:12 Physical Exam Vitals: Vital Signs Temp Pulse Pulse Resp BP BP Pulse Ox 03/03/21 04:55 99.4 F 77 20 114/71 94 L 03/02/21 19:53 16 03/02/21 19:35 98.8 F 98 20 100/62 96 03/02/21 15:10 100.5 F H 92 16 111/56 97 03/02/21 10:01 98.6 F 87 20 99/62 98 Intake and Output 03/02/21 03/03/21 03/03/21 22:59 06:59 14:59 Intake Total 300 2160 Output Total 600 Balance 300 1560 Intake: Intake, IV Titration 2160 Amount Ampicillin-Sulbactam 3 gm 100 In Sodium Chloride 0.9% 100 ml @ 200 mls/hr IVPB Q6H [facility] Rx#:[id number] Sodium Chloride 0.9% 1, 1560 000 ml @ 130 mls/hr IV . Q7H42M [facility] Rx#:[id number] Vancomycin 1,750 mg In 500 Sodium Chloride 0.9% 500 ml 500 ml @ 167 mls/hr IVPB Q16H [facility] Rx#: [id number] Oral 300 0 Output: Urine 600 Other: Voiding Method Urinal # Voids 1 Weight 104 kg - Constitutional General appearance: no acute distress - EENT Eyes: EOMI - Neck Neck: no lymphadenopathy - Gastrointestinal General gastrointestinal: no organomegaly, soft, no tenderness - Integumentary 6 by about 8 cm these of the third digit and dorsum of the foot cellulitis with gangrenous appearing third digit. Integumentary: cellulitis, no jaundiced - Neurologic Neurologic: CNII-XII intact - Musculoskeletal Musculoskeletal: no generalized weakness - Psychiatric Psychiatric: A&O x's 3 Results CBC & Chem 7: 03/02/21 10:38 03/02/21 10:38 Labs: Abnormal Lab Results - Last 24 Hours (Table) 03/02/21 03/02/21 03/02/21 Range/Units 10:38 10:38 17:01 WBC 13.5 H (3.8-10.6) k/uL RBC 4.26 L (4.30-5.90) m/uL Hct 38.1 L (39.0-53.0) % Neutrophils # 11.3 H (1.3-7.7) k/uL Lymphocytes # 0.8 L (1.0-4.8) k/uL Sodium 135 L (137-145) mmol/L Chloride 94 L (98-107) mmol/L BUN 29 H (9-20) mg/dL Creatinine 1.28 H (0.66-1.25) mg/dL Glucose 235 H (74-99) mg/dL POC Glucose (mg/dL) 169 H (75-99) mg/dL Calcium 10.4 H (8.4-10.2) mg/dL 03/02/21 03/03/21 Range/Units 20:37 07:42 WBC (3.8-10.6) k/uL RBC (4.30-5.90) m/uL Hct (39.0-53.0) % Neutrophils # (1.3-7.7) k/uL Lymphocytes # (1.0-4.8) k/uL Sodium (137-145) mmol/L Chloride (98-107) mmol/L BUN (9-20) mg/dL Creatinine (0.66-1.25) mg/dL Glucose (74-99) mg/dL POC Glucose (mg/dL) 235 H 185 H (75-99) mg/dL Calcium (8.4-10.2) mg/dL Thrombosis Risk Factor Assmnt - Choose All That Apply Any of the Below Risk Factors Present?: Yes Each Factor Represents 1 point: Obesity (BMI >25) Other Risk Factors: Yes Each Risk Factor Represents 2 Points: Age 61-74 years Other congenital or acquired thrombophilia - If yes, enter type in comment: No Thrombosis Risk Factor Assessment Total Risk Factor Score: 3 Thrombosis Risk Factor Assessment Level: Moderate Risk Assessment and Plan (1) Cellulitis Current Visit: Yes Status: Acute Code(s): L03.90 - CELLULITIS, UNSPECIFIED SNOMED Code(s): 538647492 (2) Osteomyelitis Current Visit: Yes Status: Acute Code(s): M86.9 - OSTEOMYELITIS, UNSPECIFIED SNOMED Code(s): 17834368 (3) CAD (coronary artery disease) Current Visit: No Status: Acute Code(s): I25.10 - ATHSCL HEART DISEASE OF [place] CORONARY ARTERY W/O ANG PCTRS SNOMED Code(s): 33881299 (4) Diabetes Current Visit: No Status: Acute Code(s): E11.9 - TYPE 2 DIABETES MELLITUS WITHOUT COMPLICATIONS SNOMED Code(s): 71362123 Plan: Empiric antibiotic treatment. Appropriate consultations are Check CBC and CMP in a.m. Reconcile medications and place on sliding scale. Prognosis is guarded. I had a long discussion with him and he wishes to be a full code but no long-term mechanical ventilation. See orders otherwise
[2021-03-03] MEDS: AMIODARONE 200 MG TAB PO SCH (08:53)
[2021-03-03] MEDS: ISOSORBIDE MONONITRATE ER 60 MG TAB.ER.24H PO SCH (08:53)
[2021-03-03] MEDS: FUROSEMIDE 40 MG TAB PO SCH (08:53)
[2021-03-03] MEDS: lisinopriL 10 MG TAB PO SCH (08:53)
[2021-03-03] MEDS: CLOPIDOGREL 75 MG TAB PO SCH (08:53)
[2021-03-03] MEDS: MULTIVITAMINS, THERA 1 EACH TAB PO SCH (08:53)
[2021-03-03] MEDS: ASPIRIN 81 MG PO SCH (08:54)
[2021-03-03] MEDS: METOPROLOL SUCCINATE (ER) 100 MG TAB.ER.24H PO SCH (08:54)
[2021-03-03] MEDS: PRAVASTATIN SODIUM 40 MG TAB PO SCH (08:55)
[2021-03-03] MEDS: RANOLAZINE 500 MG TAB.ER.12H PO SCH ×2 (08:55→20:45)
[2021-03-03] MEDS: LEVOTHYROXINE 50 MCG TAB PO SCH (08:57)
[2021-03-03] MEDS: metFORMIN 500 MG TAB PO SCH ×2 (08:57→18:25)
[2021-03-03] MEDS ORDERED: NON FORMULARY DRUG (Flaxseed Oil [Omega-3 Flaxseed Oil] 1,000 MG Capsule) PO SCH (09:00)
[2021-03-03] MEDS: INSULIN ASPART (NovoLOG) 100 UNIT/ML VIAL SQ SCH ×4 (09:48→20:45)
[2021-03-03 11:57] VITALS: BMI 32.8
[2021-03-03 12:14] LABS: Glucose,Whole Blood 197 mg/dL (75-99)
--- NOTE | 2021-03-03 15:52 | P.PN ---
Progress Note - Text Progress Note Date: 03/03/21 I reviewed the chart in the images. Infectious disease has been counseled that as well as vascular surgery. It seems though the case would likely have further benefit with vascular surgery service rather than orthopedic surgery service. The house staff is aware of this and vascular is already counseled on the patient. We will go ahead and cancel a consult for orthopedics and the patient will continue treatment with medicine, infectious disease, and vascular surgery.
[2021-03-03 16:51] LABS: Glucose,Whole Blood 182 mg/dL (75-99)
--- NOTE | 2021-03-03 17:23 | P.GSCN ---
History of Present Illness History of present illness: 66-year-old white male, patient has history of diabetes mellitus patient has history of 4 right foot to third toe wet gangrene heparin for the last few weeks. Patient has a marked redness on the dorsal suspect the foot. Patient also had symptoms surgery done on her right foot fourth toe most likely partial amputation On examination neck is supple no bruit appreciated Chest chest is clear first and second sound normal good entry both lungs Abdomen soft nontender Vascular brachial radial and femoral pulses are present and dorsal pedis is 1+ there is a marked swelling or redness noted the dorsal suspect the foot with the right foot third toe has a wet gangrene Plan is ray amputation the right foot third toe possible fourth toe risk and complication discussed we'll arrange for tomorrow clear liquid in the morning and nothing by mouth after that consent for right foot third toe and possible fourth toe ray amputation Past Medical History Past Medical History: Coronary Artery Disease (CAD), Cancer, Diabetes Mellitus, Eye Disorder, GERD/Reflux, Hyperlipidemia, Hypertension, Myocardial Infarction ([place]), Osteoarthritis (OA), Pneumonia, Prostate Disorder, Thyroid Disorder Additional Past Medical History / Comment(s): IDDM type II, neuropathy bilateral legs/feet, R charcot foot, [place] per EKG, prostate cancer with prostatectomy/then PSA started to climb so he then recieved radiation treatments, hiatal hernis, d iverticuliltis with bowel resection, frequent headaches/migraines, arthritis bilateral hands, occasional back pain, hypothyroid, starting of bilateral cataracts. Last Myocardial Infarction Date:: unkn History of Any Multi-Drug Resistant Organisms: None Reported Past Surgical History: Bowel Resection, Coronary Bypass/CABG, Heart Catheterization With Stent, Orthopedic Surgery, Pacemaker, Prostate Surgery Additional Past Surgical History / Comment(s): 2002 CABG 3 vessel, PCI with stents in 2008, pacemaker in 2017, prostatectomy, EGD, colonoscopy, bowel resection, R foot bone removal. Past Anesthesia/Blood Transfusion Reactions: No Reported Reaction Date of Last Stent Placement:: 2008 Type of Cardiac Device: Permanent Pacemaker Device Placement Date:: 2018 Past Psychological History: No Psychological Hx Reported Additional Psychological History / Comment(s): Pt and his spouse moved from [place] spring 2019 into his brothers home. 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 He drives. He served in the [employer]. Smoking Status: Never smoker Past Alcohol Use History: None Reported Past Drug Use History: None Reported - Past Family History Father Family Medical History: Cancer Additional Family Medical History / Comment(s): Father of prostate cancer. Mother Family Medical History: Diabetes Mellitus Additional Family Medical History / Comment(s): Mother had heart problems. Medications and Allergies Home Medications Medication Instructions Recorded Confirmed Type Aspirin 81 mg PO DAILY 04/28/20 03/02/21 History Clopidogrel Bisulfate [Plavix] 75 mg PO DAILY 04/28/20 03/02/21 History INSULIN LISPRO (humaLOG) [humaLOG] See Protocol SQ AC-TID 04/28/20 03/02/21 History Ibuprofen [Motrin Ib] 200 mg PO Q8H PRN 04/28/20 03/02/21 History Insulin Glargine,Hum.rec.anlog 60 unit SQ HS 04/28/20 03/02/21 History [Basaglar Kwikpen U-100] Levothyroxine Sodium [Synthroid] 50 mcg PO DAILY 04/28/20 03/02/21 History Melatonin 3 mg PO HS PRN 04/28/20 03/02/21 History Multivitamins, Thera [Multivitamin 1 tab PO DAILY 04/28/20 03/02/21 History (formulary)] Pravastatin Sodium [Pravachol] 40 mg PO DAILY 04/28/20 03/02/21 History Ranolazine [Ranolazine ER] 500 mg PO BID 04/28/20 03/02/21 History flaxseed oiL [[place]-3 Flaxseed Oil] 1,000 mg PO BID 04/28/20 03/02/21 History lisinopriL [Zestril] 10 mg PO DAILY 04/28/20 03/02/21 History Furosemide [Lasix] 40 mg PO DAILY #90 tab 05/01/20 03/02/21 Rx Zolpidem [Ambien] 5 mg PO HS PRN #30 tab 05/01/20 03/02/21 Rx Amiodarone [Cordarone] 200 mg PO DAILY 03/02/21 03/02/21 History Isosorbide Mononitrate ER [Imdur] 60 mg PO DAILY 03/02/21 03/02/21 History Metoprolol Succinate (ER) [Toprol 100 mg PO DAILY 03/02/21 03/02/21 History Xl] Potassium Chloride [Klor-Con 20] 20 meq PO DAILY PRN 03/02/21 03/02/21 History metFORMIN HCL ER [Glucophage XR] 1,000 mg PO BID 03/02/21 03/02/21 History metOLazone 2.5 mg PO DAILY PRN 03/02/21 03/02/21 History Allergies Allergy/AdvReac Type Severity Reaction Status Date / Time exenatide [From Byetta] Allergy Rash/Hives Verified 03/02/21 13:12 Iodinated Contrast Media Allergy Unknown Verified 03/02/21 13:12 latex Allergy Rash/Hives Verified 03/02/21 13:12 liraglutide [From Victoza] Allergy Rash/Hives Verified 03/02/21 13:12 Surgical - Exam Vital Signs Temp Pulse Resp BP Pulse Ox 98.6 F 87 20 99/62 98 03/02/21 10:01 03/02/21 10:01 03/02/21 10:01 03/02/21 10:01 03/02/21 10:01 Results - Labs 03/02/21 10:38 03/02/21 10:38 Abnormal Lab Results - Last 24 Hours (Table) 03/02/21 03/03/21 03/03/21 Range/Units 20:37 07:42 12:13 POC Glucose (mg/dL) 235 H 185 H 197 H (75-99) mg/dL 03/03/21 Range/Units 16:50 POC Glucose (mg/dL) 182 H (75-99) mg/dL Microbiology - Last 24 Hours (Table) 03/02/21 10:35 Blood Culture - Preliminary Blood No Growth after 24 hours 03/02/21 10:23 Blood Culture - Preliminary Blood No Growth after 24 hours
[2021-03-03 20:35] LABS: Glucose,Whole Blood 296 mg/dL (75-99)
[2021-03-04] MEDS: ACETAMINOPHEN TAB 325 MG TAB PO PRN ×3 (01:45→19:56)
[2021-03-04] MEDS: SODIUM CHLORIDE 0.9% 1,000 ML IV SCH ×3 (03:58→19:55)
[2021-03-04] MEDS: LEVOTHYROXINE 50 MCG TAB PO SCH (05:24)
[2021-03-04] MEDS: AMPICILLIN-SULBACTAM 3 GM in SODIUM CHLORIDE 0.9% 100 ML IVPB SCH ×3 (05:24→19:55)
[2021-03-04 06:43] LABS: HCT 34.1 % (39.0-53.0); HGB 11.2 gm/dL (13.0-17.5); MCH 30.6 pg (25.0-35.0); MCHC 32.8 g/dL (31.0-37.0); MCV 93.4 fL (80.0-100.0); Mean Platelet Volume 8.7; Platelet Count 156 k/uL (150-450); RBC 3.65 m/uL (4.30-5.90); RDW 13.5 % (11.5-15.5); WBC 6.6 k/uL (3.8-10.6)
[2021-03-04 07:41] LABS: Glucose,Whole Blood 209 mg/dL (75-99)
--- NOTE | 2021-03-04 08:11 | P.PN ---
Subjective Progress Note Date: 03/04/21 Principal diagnosis: Osteomyelitis digit of the right foot This is a continue progress on a 66-year-old diabetic with Charcot foot. The patient is scheduled for third and fourth digit amputation of the foot related osteomyelitis. He's had previous issues with this in the past. No sniffing and new complaints stated pain is relatively well controlled. No significant Voiding difficulty Objective - Vital Signs Vital signs: Vital Signs Temp 98.1 F 03/04/21 05:00 Pulse 62 03/04/21 05:00 Resp 16 03/04/21 05:00 BP 101/65 03/04/21 05:00 Pulse Ox 96 03/04/21 05:00 Intake & Output 03/03/21 03/04/21 03/04/21 18:59 06:59 18:59 Intake Total 1560 Output Total 300 Balance 1260 Weight 104 kg Intake: Intake, IV Titration 1560 Amount Sodium Chloride 0.9% 1, 1560 000 ml @ 130 mls/hr IV . Q7H42M [facility] Rx#:[id number] Output: Urine 300 Other: Voiding Method Urinal Urinal # Voids 2 2 - Constitutional General appearance: Present: obese - EENT Eyes: Absent: abnormal pupil - Neck Neck: Absent: lymphadenopathy - Respiratory Respiratory: bilateral: CTA - Cardiovascular Rhythm: regular Heart sounds: normal: S1, S2 Abnormal Heart Sounds: Absent: S3 Gallop - Gastrointestinal General gastrointestinal: Present: soft. Absent: tenderness - Integumentary Integumentary: Absent: cellulitis - Psychiatric Psychiatric: Present: A&O x's 3 - Labs CBC & Chem 7: 03/04/21 06:23 03/02/21 10:38 Labs: Abnormal Lab Results - Last 24 Hours (Table) 03/03/21 03/03/21 03/03/21 Range/Units 12:13 16:50 20:33 RBC (4.30-5.90) m/uL Hgb (13.0-17.5) gm/dL Hct (39.0-53.0) % POC Glucose (mg/dL) 197 H 182 H 296 H (75-99) mg/dL 03/04/21 03/04/21 Range/Units 06:23 07:34 RBC 3.65 L (4.30-5.90) m/uL Hgb 11.2 L (13.0-17.5) gm/dL Hct 34.1 L (39.0-53.0) % POC Glucose (mg/dL) 209 H (75-99) mg/dL Microbiology - Last 24 Hours (Table) 03/02/21 10:35 Blood Culture - Preliminary Blood No Growth after 24 hours 03/02/21 10:23 Blood Culture - Preliminary Blood No Growth after 24 hours Assessment and Plan (1) Cellulitis Current Visit: Yes Status: Acute Code(s): L03.90 - CELLULITIS, UNSPECIFIED SNOMED Code(s): 173110236 (2) Osteomyelitis Current Visit: Yes Status: Acute Code(s): M86.9 - OSTEOMYELITIS, UNSPECIFIED SNOMED Code(s): 59853348 (3) CAD (coronary artery disease) Current Visit: No Status: Acute Code(s): I25.10 - ATHSCL HEART DISEASE OF [place] CORONARY ARTERY W/O ANG PCTRS SNOMED Code(s): 05937436 (4) Diabetes Current Visit: No Status: Acute Code(s): E11.9 - TYPE 2 DIABETES MELLITUS WITHOUT COMPLICATIONS SNOMED Code(s): 97182689 Plan: Empiric antibiotic treatment. Indications scheduled for later today. Check CBC and CMP in a.m. Anabolic treatment to be continued
[2021-03-04] MEDS: ASPIRIN 81 MG PO SCH (09:11)
[2021-03-04] MEDS: CLOPIDOGREL 75 MG TAB PO SCH (09:11)
--- NOTE | 2021-03-04 09:16 | P.CONS ---
History of Present Illness - Reason for Consult Consult date: 03/03/21 right toe gangrene Requesting physician: Everardo Auguste - Chief Complaint right 3rd toe discoloration and draiange x days - History of Present Illness History of present illness : Patient is 66-year-old male presenting to the ER yesterday morning for evaluation of right foot infection apparently the patient did have a follow-up with his right third toe of the last few days patient denies having history of any trauma that may have been a small blister subsequently noticed to have a decreasing swelling and redness is also possibly related to be getting worse. 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 to the hospital on arrival to the ER patient did have a fever 100.5 F patient did have white count of 13.5 with a left shift creati nine was mildly elevated, patient did have x-rays of the foot with evidence of recurrent acute osteomyelitis involving the third toe blood culture has been obtained patient was started on Unasyn and vancomycin has been admitted to hospital infectious disease was consulted for further management of antibiotic therapy, patient resting complaint is to be increasing swelling redness discoloration to the right foot patient hemodynamically Alok has denied significant pain to the area more of a pressure sensation especially when to touch 2-3) no radiation Review of system: CONSTITUTIONAL: Positive for weakness along with the fever. EYES: No complaint. ENT: No complaint. RESPIRATORY: No complaint. CARDIOVASCULAR: No complaint. GENITOURINARY: No complaint. GASTROINTESTINAL: No complaint. MUSCULOSKELETAL: As per history of present illness. INTEGUMENTARY: As per history of present illness. PSYCHOLOGIC: No complaint. ENDOCRINE: No complaint. NEUROLOGIC: No complaint. Past medical history : Reviewed, documented below Past surgical history : Reviewed, documented below Social history: Reviewed, documented below Medications: Reviewed, as documented below EXAMINATION: Vital sigans= Reviewed and documented below GENERAL DESCRIPTION elderly male lying in bed, no distress. No tachypnea or accessory muscle of respiration use. HEENT: Shows Pallor , no scleral icterus. Oral mucous membrane is dry. NECK: Trachea central, no thyromegaly. LUNGS: Unlabored breathing. Clear to auscultation anteriorly. No wheeze or crackle. HEART: S1, S2, regular rate and rhythm. ABDOMEN: Soft, no tenderness , guarding or rigidity EXTREMITIES: No edema of feet. Right third toe with swelling redness discoloration SKIN: No rash, no masses palpable. NEUROLOGICAL: The patient is awake, alert, oriented x3, mood and affect normal. LABS AND RADIOLOGY: Reviewed results see below Assessment : 1-Patient presented to hospital with sepsis in this patient have a fever elevated white count source right third toe diabetic foot infection concern for underlying low-grade and osteomyelitis seen on the plain x-rays did call for the polymicrobial avila usually associated with this type of infection 2-bowel resection is at high risk of toxicity can be functioning to monitor closely Plan: 1-vascular/evaluation for possible debridement versus amputation of the right toe along with deep cultures 2-vancomycin pharmacy to dose with a target trough of 15 while watching kidney function and Vanco trough closely. 3-Unasyn 3 g every 6 hours We will follow on clinical condition and cultures to further adjust medication if needed Thank you for this consultation we will follow the patient along with you Past Medical History Past Medical History: Coronary Artery Disease (CAD), Cancer, Diabetes Mellitus, Eye Disorder, GERD/Reflux, Hyperlipidemia, Hypertension, Myocardial Infarction ([place]), Osteoarthritis (OA), Pneumonia, Prostate Disorder, Thyroid Disorder Additional Past Medical History / Comment(s): IDDM type II, neuropathy bilateral legs/feet, R charcot foot, [place] per EKG, prostate cancer with prostatectomy/then PSA started to climb so he then recieved radiation treatments, hiatal hernis, diverticuliltis with bowel resection, frequent headaches/migraines, arthritis bilateral hands, occasional back pain, hypothyroid, starting of bilateral cataracts. Last Myocardial Infarction Date:: unkn History of Any Multi-Drug Resistant Organisms: None Reported Past Surgical History: Bowel Resection, Coronary Bypass/CABG, Heart Catheterization With Stent, Orthopedic Surgery, Pacemaker, Prostate Surgery Additional Past Surgical History / Comment(s): 2002 CABG 3 vessel, PCI with stents in 2008, pacemaker in 2018, prostatectomy, EGD, colonoscopy, bowel resection, R foot bone removal. Past Anesthesia/Blood Transfusion Reactions: No Reported Reaction Date of Last Stent Placement:: 2008 Type of Cardiac Device: Permanent Pacemaker Device Placement Date:: 2018 Past Psychological History: No Psychological Hx Reported Additional Psychological History / Comment(s): Pt and his spouse moved from [place] spring 2019 into his brothers home. 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 He drives. He served in the [employer]. Smoking Status: Never smoker Past Alcohol Use History: None Reported Past Drug Use History: None Reported - Past Family History Father Family Medical History: Cancer Additional Family Medical History / Comment(s): Father of prostate cancer. Mother Family Medical History: Diabetes Mellitus Additional Family Medical History / Comment(s): Mother had heart problems. Medications and Allergies Home Medications Medication Instructions Recorded Confirmed Type Aspirin 81 mg PO DAILY 04/28/20 03/02/21 History Clopidogrel Bisulfate [Plavix] 75 mg PO DAILY 04/28/20 03/02/21 History INSULIN LISPRO (humaLOG) [humaLOG] See Protocol SQ AC-TID 04/28/20 03/02/21 History Ibuprofen [Motrin Ib] 200 mg PO Q8H PRN 04/28/20 03/02/21 History Insulin Glargine,Hum.rec.anlog 60 unit SQ HS 04/28/20 03/02/21 History [Basaglar Kwikpen U-100] Levothyroxine Sodium [Synthroid] 50 mcg PO DAILY 04/28/20 03/02/21 History Melatonin 3 mg PO HS PRN 04/28/20 03/02/21 History Multivitamins, Thera [Multivitamin 1 tab PO DAILY 04/28/20 03/02/21 History (formulary)] Pravastatin Sodium [Pravachol] 40 mg PO DAILY 04/28/20 03/02/21 History Ranolazine [Ranolazine ER] 500 mg PO BID 04/28/20 03/02/21 History flaxseed oiL [Mantador-3 Flaxseed Oil] 1,000 mg PO BID 04/28/20 03/02/21 History lisinopriL [Zestril] 10 mg PO DAILY 04/28/20 03/02/21 History Furosemide [Lasix] 40 mg PO DAILY #90 tab 05/01/20 03/02/21 Rx Zolpidem [Ambien] 5 mg PO HS PRN #30 tab 05/01/20 03/02/21 Rx Amiodarone [Cordarone] 200 mg PO DAILY 03/02/21 03/02/21 History Isosorbide Mononitrate ER [Imdur] 60 mg PO DAILY 03/02/21 03/02/21 History Metoprolol Succinate (ER) [Toprol 100 mg PO DAILY 03/02/21 03/02/21 History Xl] Potassium Chloride [Klor-Con 20] 20 meq PO DAILY PRN 03/02/21 03/02/21 History metFORMIN HCL ER [Glucophage XR] 1,000 mg PO BID 03/02/21 03/02/21 History metOLazone 2.5 mg PO DAILY PRN 03/02/21 03/02/21 History Allergies Allergy/AdvReac Type Severity Reaction Status Date / Time exenatide [From Byetta] Allergy Rash/Hives Verified 03/02/21 13:12 Iodinated Contrast Media Allergy Unknown Verified 03/02/21 13:12 latex Allergy Rash/Hives Verified 03/02/21 13:12 liraglutide [From Victoza] Allergy Rash/Hives Verified 03/02/21 13:12 Physical Exam Vitals: Vital Signs Temp Pulse Pulse Resp BP BP Pulse Ox 03/03/21 08:53 105/67 03/03/21 04:55 99.4 F 77 20 114/71 94 L 03/02/21 19:53 16 03/02/21 19:35 98.8 F 98 20 100/62 96 03/02/21 15:10 100.5 F H 92 16 111/56 97 Intake and Output 03/02/21 03/03/21 03/03/21 22:59 06:59 14:59 Intake Total 300 2160 Output Total 600 Balance 300 1560 Intake: Intake, IV Titration 2160 Amount Ampicillin-Sulbactam 3 gm 100 In Sodium Chloride 0.9% 100 ml @ 200 mls/hr IVPB Q6H [facility] Rx#:[id number] Sodium Chloride 0.9% 1, 1560 000 ml @ 130 mls/hr IV . Q7H42M [facility] Rx#:[id number] Vancomycin 1,750 mg In 500 Sodium Chloride 0.9% 500 ml 500 ml @ 167 mls/hr IVPB Q16H [facility] Rx#: [id number] Oral 300 0 Output: Urine 600 Other: Voiding Method Urinal Urinal # Voids 1 Weight 104 kg Results CBC & Chem 7: 03/04/21 06:23 03/02/21 10:38 Labs: Abnormal Lab Results - Last 24 Hours (Table) 03/02/21 03/02/21 03/02/21 Range/Units 10:38 10:38 17:01 WBC 13.5 H (3.8-10.6) k/uL RBC 4.26 L (4.30-5.90) m/uL Hct 38.1 L (39.0-53.0) % Neutrophils # 11.3 H (1.3-7.7) k/uL Lymphocytes # 0.8 L (1.0-4.8) k/uL Sodium 135 L (137-145) mmol/L Chloride 94 L (98-107) mmol/L BUN 29 H (9-20) mg/dL Creatinine 1.28 H (0.66-1.25) mg/dL Glucose 235 H (74-99) mg/dL POC Glucose (mg/dL) 169 H (75-99) mg/dL Calcium 10.4 H (8.4-10.2) mg/dL 03/02/21 03/03/21 Range/Units 20:37 07:42 WBC (3.8-10.6) k/uL RBC (4.30-5.90) m/uL Hct (39.0-53.0) % Neutrophils # (1.3-7.7) k/uL Lymphocytes # (1.0-4.8) k/uL Sodium (137-145) mmol/L Chloride (98-107) mmol/L BUN (9-20) mg/dL Creatinine (0.66-1.25) mg/dL Glucose (74-99) mg/dL POC Glucose (mg/dL) 235 H 185 H (75-99) mg/dL Calcium (8.4-10.2) mg/dL
[2021-03-04 09:37] LABS: African American GFR (CKD) 75.4 (60.0-200.0); Albumin 3.7 g/dL (3.8-4.9); Albumin/Globulin Ratio 1.47 (1.60-3.17); Anion Gap 12.3 mmol/L (10.00-18.00); Blood Urea Nitrogen 18.4 mg/dL (9.0-27.0); Calcium 8.6 mg/dL (8.7-10.3); Carbon Dioxide 25.4 mmol/L (20.0-27.5); Globulin 2.5 g/dL (1.6-3.3); Total Bilirubin 0.4 mg/dL (0.30-1.20); Total Protein 6.2 g/dL (6.2-8.2)
[2021-03-04] MEDS: lisinopriL 10 MG TAB PO SCH (09:45)
[2021-03-04] MEDS: INSULIN ASPART (NovoLOG) 100 UNIT/ML VIAL SQ SCH ×5 (09:46→22:23)
[2021-03-04] MEDS: metFORMIN 500 MG TAB PO SCH ×2 (09:46→19:55)
[2021-03-04] MEDS: FUROSEMIDE 40 MG TAB PO SCH (09:46)
[2021-03-04] MEDS: AMIODARONE 200 MG TAB PO SCH (09:46)
[2021-03-04] MEDS: ISOSORBIDE MONONITRATE ER 60 MG TAB.ER.24H PO SCH (09:46)
[2021-03-04] MEDS: MULTIVITAMINS, THERA 1 EACH TAB PO SCH (09:47)
[2021-03-04] MEDS: PRAVASTATIN SODIUM 40 MG TAB PO SCH (09:48)
[2021-03-04] MEDS: RANOLAZINE 500 MG TAB.ER.12H PO SCH ×2 (09:48→20:03)
[2021-03-04] MEDS: METOPROLOL SUCCINATE (ER) 100 MG TAB.ER.24H PO SCH (09:48)
--- NOTE | 2021-03-04 10:15 | CDI ---
Documentation Clarification Form Date: 03/04/2021 09:58:22 AM From: Ally De La Garza RN CCDS Admit Date: 03/02/2021 11:58:00 AM Patient Name: Corby Leggett Visit Number: [id number] Discharge Date: ATTENTION: The Clinical Documentation Specialists (CDI) and [facility] Coding Staff appreciate your assistance in clarifying documentation. Please respond to the clarification below the line at the bottom and electronically sign. The CDI & [facility] Coding staff will review the response and follow-up if needed. Please note: Queries are made part of the Legal Health Record. If you have any questions, please contact the author of this message via ITS. Dr. Everardo Auguste Sepsis is documented ID progress note, 03/03, but is not noted in subsequent documentation. Clarification is requested. History/Risk Factors: 66 y/o male presents to the ED with his right toe appearing black and draining. Medical history: DM type 2, Neuropathy bilateral legs/feet, Right Charcot foot. 03/03, H&P. Clinical Indicators: VSS: 03/02 B/P 99/62, HR 87, Temp 98.6 F Oral, RR 20, SpO2 98% ra Wbc: 03/02 13.5 Neutrophils: 03/02 11.3 ID Consult 03/03: Patient presented to hospital with sepsis in this patient have a fever, elevated WBC, source right third toe diabetic foot infection, concern for underlying osteomyelitis. On arrival to ER patient did have a fever 100.5 F patient did have white count of 13.5 with a left shift. Treatment: ID Consult: 03/03 see above IV Fluids: 03/02 0.9NS 500mls IVPB x 2 bags, 03/02 to current 0.9NS IV 130cc/hr. Antibiotics: 03/02 Ampicillin Sodium / Sulbactam Sodium 3gm IVPB x 1, 03/02 to current Ampicillin Sodium / Sulbactam Sodium 3gm IVPB Q6H, 03/02 Vancomycin 1,750mg IVPB x 1, 03/03 to current Vancomycin 1,750mg IVPB Q16H [facility]. Please clarify if the Sepsis is: [ x ] Sepsis confirmed POA, remains under treatment [ ] Sepsis ruled out [ ] Other condition, please specify [ ] Unable to determine (Template Last Revised: May 2020) MTDD
--- NOTE | 2021-03-04 10:32 | CDI ---
Documentation Clarification Form Date: 03/04/2021 10:19 AM From: Ally De La Garza Admit Date: 03/02/2021 11:58:00 AM Patient Name: Corby Leggett Visit Number: [id number] Discharge Date: ATTENTION: The Clinical Documentation Specialists (CDI) and [facility] Coding Staff appreciate your assistance in clarifying documentation. Please respond to the clarification below the line at the bottom and electronically sign. The CDI & [facility] Coding staff will review the response and follow-up if needed. Please note: Queries are made part of the Legal Health Record. If you have any questions, please contact the author of this message via ITS. Dr. Everardo Auguste Your patient is receiving the following: Lasix, Imdur, Metolazone and Toprol Xl, 03/03. Please clarify what condition/diagnosis is being treated. History/Risk Factors: 66 y/o male presents to the ED with his right toe appearing black and draining. Medical history: DM type 2, CAD, [place], Pacemaker, CABG, HLD and HTN. 03/03, H&P. Clinical indicators: ECHO: 04/29/20 Overall left ventricular systolic function is severely impaired with, an EF between 20-25%. Mild mitral and tricuspid valve regurgitation, mild pulmonary htn, Treatment: 03/03 to current Lasix 40mg PO Daily, 03/03 to current Imdur 60mg PO Daily, 03/03 to current Toprol Xl 100mg PO Daily, 03/03 to current Metolazone 2.5mg PO daily PRN edema. What diagnosis are you treating with Lasix, Imdur, Metolazone and Toprol Xl? [ x] Chronic Systolic Heart Failure [ ] No additional diagnosis [ ] Other, please specify [ ] Unable to determine (Template Last Reviewed: April 2020) MTDD
[2021-03-04 13:05] LABS: Glucose,Whole Blood 210 mg/dL (75-99)
[2021-03-04] MEDS ORDERED: ONDANSETRON 4 MG/2 ML VIAL ONE (13:50)
[2021-03-04 13:53] LABS: Glucose,Whole Blood 196 mg/dL (75-99)
[2021-03-04] MEDS ORDERED: ONDANSETRON 4 MG/2 ML VIAL IVP ONE (13:58)
[2021-03-04] MEDS ORDERED: IV FLUID CONTINUATION 1,000 ML IV ONE (14:01)
[2021-03-04] MEDS ORDERED: .fentaNYL (PF) 50 MCG/ML 2 ML AMP ONE (14:07)
[2021-03-04] MEDS ORDERED: PROPOFOL 10 MG/ML 20 ML VIAL IV ONE (14:07)
[2021-03-04] MEDS ORDERED: MIDAZOLAM 2 MG/2 ML VIAL ONE (14:07)
--- NOTE | 2021-03-04 14:37 | PN ---
PROGRESS NOTE DATE OF SERVICE: 03/04/2021 REASON FOR FOLLOWUP: Right third toe diabetic foot infection with osteomyelitis, acute. INTERVAL HISTORY: Patient is afebrile. The patient is currently breathing comfortably. Denies any chest pain, shortness of breath, cough, no abdominal pain right third toe area. Scheduled for surgery this afternoon. PHYSICAL EXAMINATION: Blood pressure 109/71 with a pulse of 75, temperature 97.4. He is 98% on room air. General description is an elderly male lying in bed in no distress. Respiratory system: Unlabored breathing, clear to auscultation anteriorly. Heart S1, S2. Regular rate and rhythm. Abdomen soft, no tenderness. Right foot is currently dressed. No obvious drainage on the dressing. LABS: Hemoglobin 11.1, white count 6.6, creatinine 1.2. DIAGNOSTIC IMPRESSION AND PLAN: Patient with right third toe diabetic foot infection, concern for underlying osteomyelitis and now with gangrene. Waiting for debridement versus amputation. Patient is covered with vancomycin and Unasyn. Antibiotic adjusted further based on culture report. Continue supportive care. MMODL / IJN: [id number] /
[2021-03-04] MEDS: VANCOMYCIN 1,750 MG in SODIUM CHLORIDE 0.9% 500 ML 500 ML IVPB SCH (15:53)
[2021-03-04 16:03] LABS: Glucose,Whole Blood 201 mg/dL (75-99)
[2021-03-04 17:35] LABS: Glucose,Whole Blood 166 mg/dL (75-99)
--- NOTE | 2021-03-04 17:52 | OP ---
OPERATIVE REPORT PREOPERATIVE DIAGNOSIS: Right foot third toe wet gangrene. POSTOPERATIVE DIAGNOSIS: Right foot third toe wet gangrene. OPERATION: Ray amputation of the right foot third toe at metatarsophalangeal joint. DESCRIPTION OF PROCEDURE: This patient brought to the operating room. Right foot was prepped and drapes applied in the sterile manner. This patient has wet gangrene of the third toe, some infection the dorsal aspect of the foot. The elliptical incision was made on the dorsal aspect of the foot, went circumferentially around the third toe and incision extended to the plantar aspect, deepened through skin, fat and fascia. Tendons were divided on the dorsum and plantar aspect of the foot until we reached the metatarsal phalangeal joint. The ligaments were divided and the third toe was removed. Hemostasis was well controlled by suture ligature and the wound was copiously irrigated with hydrogen peroxide. Bleeding was well controlled and the wound was closed in 1 layer using 3-0 Vicryl with interrupted sutures. Skin left open. Aquacel silver applied to the wound. Pressure dressing applied. Patient tolerated the procedure well and transferred to the recovery room in satisfactory condition. MMODL / IJN: [id number] /
[2021-03-04 20:43] LABS: Glucose,Whole Blood 170 mg/dL (75-99)
[2021-03-05] MEDS ORDERED: LOPERAMIDE 2 MG CAP PO PRN (02:00)
[2021-03-05] MEDS: AMPICILLIN-SULBACTAM 3 GM in SODIUM CHLORIDE 0.9% 100 ML IVPB SCH ×4 (02:09→20:56)
[2021-03-05] MEDS ORDERED: VANCOMYCIN TROUGH DUE 1 EACH MISC MISCELLANE ONE (03:00)
[2021-03-05] MEDS: SODIUM CHLORIDE 0.9% 1,000 ML IV SCH ×3 (03:14→18:22)
[2021-03-05 03:49] LABS: HCT 36.2 % (39.0-53.0); HGB 11.9 gm/dL (13.0-17.5); Hypochromasia Slight; MCH 31.3 pg (25.0-35.0); MCHC 32.9 g/dL (31.0-37.0); MCV 95.1 fL (80.0-100.0); Mean Platelet Volume 8.6; Platelet Count 175 k/uL (150-450); RBC 3.81 m/uL (4.30-5.90); RDW 14.2 % (11.5-15.5); WBC 7.6 k/uL (3.8-10.6)
[2021-03-05 03:58] LABS: ALT 24 U/L (4-49); AST 25 U/L (17-59); African American GFR (CKD) 70 (>60 ml/min/1.73 sqM); Albumin 3.7 g/dL (3.5-5.0); Albumin/Globulin Ratio 1.2; Alkaline Phosphatase 71 U/L (38-126); Anion Gap 10 mmol/L; Blood Urea Nitrogen 20 mg/dL (9-20); Calcium 8.6 mg/dL (8.4-10.2); Carbon Dioxide 27 mmol/L (22-30); Chloride 97 mmol/L (98-107); Globulin 3.1 g/dL; Glucose 271 mg/dL (74-99); Non-African American GFR(CKD) 61 (>60 ml/min/1.73 sqM); Potassium 3.9 mmol/L (3.5-5.1); Sodium 134 mmol/L (137-145); Total Bilirubin 0.5 mg/dL (0.2-1.3); Total Protein 6.8 g/dL (6.3-8.2)
[2021-03-05] MEDS: VANCOMYCIN 1,750 MG in SODIUM CHLORIDE 0.9% 500 ML 500 ML IVPB SCH (04:17)
[2021-03-05] MEDS: LEVOTHYROXINE 50 MCG TAB PO SCH (05:59)
[2021-03-05 07:53] LABS: Glucose,Whole Blood 227 mg/dL (75-99)
--- NOTE | 2021-03-05 08:45 | P.PN ---
Subjective Principal diagnosis: Osteomyelitis digit of the right foot This is a continue progress on a 66-year-old diabetic with Charcot foot. The patient postop day #1 for third of fourth digit medication related asked myelitis. Clostridium difficile is now noted. I will. Start him on Flagyl. No other voiding difficulties. Objective - Vital Signs Vital signs: Vital Signs Temp 97.3 F L 03/05/21 04:52 Pulse 89 03/05/21 04:52 Resp 16 03/04/21 20:00 BP 119/76 03/05/21 04:52 Pulse Ox 96 03/05/21 04:52 Intake & Output 03/04/21 03/05/21 03/05/21 18:59 06:59 18:59 Intake Total 825 Output Total 1110 400 Balance -285 -400 Intake: IV 825 Output: Urine 1100 400 Estimated Blood Loss 10 Other: Voiding Method Urinal Urinal # Voids 4 - Constitutional General appearance: Present: average body habitus, obese - EENT Eyes: Absent: abnormal pupil - Neck Neck: Absent: lymphadenopathy - Respiratory Respiratory: bilateral: CTA - Cardiovascular Rhythm: regular Heart sounds: normal: S1, S2 Abnormal Heart Sounds: Absent: S3 Gallop - Gastrointestinal General gastrointestinal: Absent: tenderness - Integumentary Integumentary: Absent: cellulitis - Labs CBC & Chem 7: 03/05/21 03:30 03/05/21 03:30 Labs: Abnormal Lab Results - Last 24 Hours (Table) 03/04/21 03/04/21 03/04/21 Range/Units 06:23 12:47 13:52 RBC (4.30-5.90) m/uL Hgb (13.0-17.5) gm/dL Hct (39.0-53.0) % Sodium (137-145) mmol/L Chloride (98-107) mmol/L Glucose 201 H (70-110) mg/dL POC Glucose (mg/dL) 210 H 196 H (75-99) mg/dL Calcium 8.6 L (8.7-10.3) mg/dL Albumin 3.7 L (3.8-4.9) g/dL Albumin/Globulin Ratio 1.47 L (1.60-3.17) g/dL C. difficile (EIA) Intrp (Negative) 03/04/21 03/04/21 03/04/21 Range/Units 16:01 17:33 20:41 RBC (4.30-5.90) m/uL Hgb (13.0-17.5) gm/dL Hct (39.0-53.0) % Sodium (137-145) mmol/L Chloride (98-107) mmol/L Glucose (70-110) mg/dL POC Glucose (mg/dL) 201 H 166 H 170 H (75-99) mg/dL Calcium (8.7-10.3) mg/dL Albumin (3.8-4.9) g/dL Albumin/Globulin Ratio (1.60-3.17) g/dL C. difficile (EIA) Intrp (Negative) 03/04/21 03/05/21 03/05/21 Range/Units 23:34 03:30 03:30 RBC 3.81 L (4.30-5.90) m/uL Hgb 11.9 L (13.0-17.5) gm/dL Hct 36.2 L (39.0-53.0) % Sodium 134 L (137-145) mmol/L Chloride 97 L (98-107) mmol/L Glucose 271 H (70-110) mg/dL POC Glucose (mg/dL) (75-99) mg/dL Calcium (8.7-10.3) mg/dL Albumin (3.8-4.9) g/dL Albumin/Globulin Ratio (1.60-3.17) g/dL C. difficile (EIA) Intrp Positive A (Negative) 03/05/21 Range/Units 07:39 RBC (4.30-5.90) m/uL Hgb (13.0-17.5) gm/dL Hct (39.0-53.0) % Sodium (137-145) mmol/L Chloride (98-107) mmol/L Glucose (70-110) mg/dL POC Glucose (mg/dL) 227 H (75-99) mg/dL Calcium (8.7-10.3) mg/dL Albumin (3.8-4.9) g/dL Albumin/Globulin Ratio (1.60-3.17) g/dL C. difficile (EIA) Intrp (Negative) Microbiology - Last 24 Hours (Table) 03/02/21 10:35 Blood Culture - Preliminary Blood No Growth after 48 hours 03/02/21 10:23 Blood Culture - Preliminary Blood No Growth after 48 hours Assessment and Plan (1) Cellulitis Current Visit: Yes Status: Acute Code(s): L03.90 - CELLULITIS, UNSPECIFIED SNOMED Code(s): 485057261 (2) Osteomyelitis Current Visit: Yes Status: Acute Code(s): M86.9 - OSTEOMYELITIS, UNSPECIFIED SNOMED Code(s): 01441276 (3) CAD (coronary artery disease) Current Visit: No Status: Acute Code(s): I25.10 - ATHSCL HEART DISEASE OF [place] CORONARY ARTERY W/O ANG PCTRS SNOMED Code(s): 49634935 (4) Diabetes Current Visit: No Status: Acute Code(s): E11.9 - TYPE 2 DIABETES MELLITUS WITHOUT COMPLICATIONS SNOMED Code(s): 99891984 Plan: Empiric antibiotic treatment. Start Flagyl for cluster him to seal. Status post amputation. I suspect he will need some form of antibiotic treatment past discharge.
[2021-03-05] MEDS: CLOPIDOGREL 75 MG TAB PO SCH (08:57)
[2021-03-05] MEDS: MULTIVITAMINS, THERA 1 EACH TAB PO SCH (08:57)
[2021-03-05] MEDS: AMIODARONE 200 MG TAB PO SCH (08:57)
[2021-03-05] MEDS: metFORMIN 500 MG TAB PO SCH ×2 (08:57→18:21)
[2021-03-05] MEDS: lisinopriL 10 MG TAB PO SCH (08:57)
[2021-03-05] MEDS: ISOSORBIDE MONONITRATE ER 60 MG TAB.ER.24H PO SCH (08:58)
[2021-03-05] MEDS: ASPIRIN 81 MG PO SCH (08:58)
[2021-03-05] MEDS: FUROSEMIDE 40 MG TAB PO SCH (08:58)
[2021-03-05] MEDS: PRAVASTATIN SODIUM 40 MG TAB PO SCH (08:58)
[2021-03-05] MEDS: RANOLAZINE 500 MG TAB.ER.12H PO SCH ×2 (08:58→22:46)
[2021-03-05] MEDS: METOPROLOL SUCCINATE (ER) 100 MG TAB.ER.24H PO SCH (08:58)
[2021-03-05] MEDS ORDERED: metroNIDAZOLE 500 MG TAB PO SCH (09:00)
[2021-03-05] MEDS: INSULIN ASPART (NovoLOG) 100 UNIT/ML VIAL SQ SCH ×4 (09:02→21:13)
[2021-03-05 12:46] LABS: Glucose,Whole Blood 241 mg/dL (75-99)
[2021-03-05] MEDS: VANCOMYCIN 125 MG CAPSULE PO SCH ×3 (12:52→21:13)
[2021-03-05] MEDS: LACTOBACILLUS ACIDOPH & BULGAR 1 EACH PACKET PO SCH ×2 (12:56→21:12)
--- NOTE | 2021-03-05 15:20 | PN ---
PROGRESS NOTE DATE OF SERVICE: 03/05/2021 REASON FOR FOLLOWUP: 1. Right third toe diabetic foot infection. 2. C difficile colitis. INTERVAL HISTORY: Patient is afebrile. The patient developed diarrhea yesterday for which he had a stool for C diff, which came back positive. As of this morning, the patient's diarrhea has improved. Did have a small bowel movement. Patient denies any abdominal pain, chest pain, shortness of breath or cough or pain to the right third toe amputation site. PHYSICAL EXAMINATION: Blood pressure 109/69, pulse 73, temperature 98.2. He is 97% on room air. General description is an elderly male lying in bed in no distress. Respiratory: Unlabored breathing, clear to auscultation anteriorly. Heart S1, S2. Regular rate and rhythm. Abdomen soft, no tenderness. LABS: Hemoglobin 11.1, white count 7.6, creatinine 1.22. is positive. No OR cultures were done. DIAGNOSTIC IMPRESSION AND PLAN: 1. Patient with right third toe diabetic foot infection with underlying wet gangrene and osteomyelitis status post amputation with infected part removed. The patient does not need to be on long-term antibiotics. Continue with Unasyn . 2. The patient with C dif colitis, we will add oral vancomycin, discontinue Flagyl. Continue supportive care. MMODL / IJN: [id number] /
[2021-03-05] MEDS ORDERED: VANCOMYCIN 1,750 MG in SODIUM CHLORIDE 0.9% 500 ML 500 ML IVPB SCH (16:00)
[2021-03-05 17:19] LABS: Glucose,Whole Blood 226 mg/dL (75-99)
[2021-03-05 20:25] LABS: Glucose,Whole Blood 212 mg/dL (75-99)
[2021-03-06] MEDS: AMPICILLIN-SULBACTAM 3 GM in SODIUM CHLORIDE 0.9% 100 ML IVPB SCH ×4 (02:00→22:08)
[2021-03-06] MEDS: SODIUM CHLORIDE 0.9% 1,000 ML IV SCH ×3 (03:45→18:01)
[2021-03-06] MEDS: LEVOTHYROXINE 50 MCG TAB PO SCH (06:06)
[2021-03-06 07:22] LABS: Glucose,Whole Blood 194 mg/dL (75-99)
[2021-03-06] MEDS ORDERED: GLIMEPIRIDE 1 MG TAB PO SCH (07:30)
[2021-03-06] MEDS: FUROSEMIDE 40 MG TAB PO SCH (08:29)
[2021-03-06] MEDS: VANCOMYCIN 125 MG CAPSULE PO SCH ×4 (08:30→20:25)
[2021-03-06] MEDS: ISOSORBIDE MONONITRATE ER 60 MG TAB.ER.24H PO SCH (08:30)
[2021-03-06] MEDS: MULTIVITAMINS, THERA 1 EACH TAB PO SCH (08:30)
[2021-03-06] MEDS: metFORMIN 500 MG TAB PO SCH ×2 (08:30→17:34)
[2021-03-06] MEDS: ASPIRIN 81 MG PO SCH (08:30)
[2021-03-06] MEDS: INSULIN ASPART (NovoLOG) 100 UNIT/ML VIAL SQ SCH ×4 (08:30→20:25)
[2021-03-06] MEDS: lisinopriL 10 MG TAB PO SCH (08:30)
[2021-03-06] MEDS: LACTOBACILLUS ACIDOPH & BULGAR 1 EACH PACKET PO SCH ×2 (08:30→20:25)
[2021-03-06] MEDS: AMIODARONE 200 MG TAB PO SCH (08:30)
[2021-03-06] MEDS: CLOPIDOGREL 75 MG TAB PO SCH (08:30)
[2021-03-06] MEDS: RANOLAZINE 500 MG TAB.ER.12H PO SCH ×2 (08:31→20:25)
[2021-03-06] MEDS: PRAVASTATIN SODIUM 40 MG TAB PO SCH (08:31)
[2021-03-06] MEDS: METOPROLOL SUCCINATE (ER) 100 MG TAB.ER.24H PO SCH (08:31)
[2021-03-06 12:07] LABS: Glucose,Whole Blood 257 mg/dL (75-99)
[2021-03-06 17:16] LABS: Glucose,Whole Blood 152 mg/dL (75-99)
[2021-03-06 20:20] LABS: Glucose,Whole Blood 185 mg/dL (75-99)
--- NOTE | 2021-03-06 21:00 | P.PN ---
Subjective This is a history and physical an 66-year-old white male with known history of long-term type 2 diabetes who states over this past weekend his toe started becoming gangrenous appearing and black. It started draining. He came in and was evaluated in the emergency room and was shown to have ostial myelitis most likely on plain film. The patient states minimal pain. Patient evaluated by infectious disease and vascular surgery team, he underwent to amputation on 03/04. Currently his skin doing well and his right toe wound is covered with dressing Also is receiving IV Unasyn and by mouth vancomycin for his C. diff colitis. Patient with no abdominal pain, tolerating regular diet, he states that his diarrhea is better today but still have a little bit runny bowel movement. Yesterday Amaryl 1 mg added to his metformin 1000 mg, sugars better in the morning but still high in the evening, we're going to increase the dose to 2 mg tomorrow. Objective - Vital Signs Vital signs: Vital Signs Temp 97.9 F 03/06/21 12:43 Pulse 84 03/06/21 12:43 Resp 17 03/06/21 12:43 BP 99/61 03/06/21 12:43 Pulse Ox 96 03/06/21 12:43 Intake & Output 03/06/21 03/06/21 03/07/21 06:59 18:59 06:59 Intake Total 840 Output Total 300 Balance -300 840 Intake: Intake, IV Titration 840 Amount Sodium Chloride 0.9% 1, 840 000 ml @ 130 mls/hr IV . Q7H42M [facility] Rx#:[id number] Output: Urine 300 Other: Voiding Method Toilet Toilet Urinal Urinal # Voids 2 # Bowel Movements 1 - Exam GENERAL: The patient is alert and oriented x3, not in any acute distress. Well developed, well nourished. HEENT: Pupils are round and equally reacting to light. EOMI. No scleral icterus. No conjunctival pallor. Normocephalic, atraumatic. No pharyngeal erythema. No thyromegaly. CARDIOVASCULAR: S1 and S2 present. No murmurs, rubs, or gallops. PULMONARY: Chest is clear to auscultation, no wheezing or crackles. ABDOMEN: Soft, nontender, nondistended, normoactive bowel sounds. No palpable organomegaly. MUSCULOSKELETAL: No joint swelling or deformity. -EXTREMITIES: No cyanosis, clubbing, or pedal edema. Right foot wound is in a dressing, wound is healing NEUROLOGICAL: Gross neurological examination did not reveal any focal deficits. SKIN: No rashes. no petechiae. - Labs CBC & Chem 7: 03/05/21 03:30 03/05/21 03:30 Labs: Abnormal Lab Results - Last 24 Hours (Table) 03/06/21 03/06/21 03/06/21 Range/Units 07:21 12:06 17:15 POC Glucose (mg/dL) 194 H 257 H 152 H (75-99) mg/dL 03/06/21 Range/Units 20:18 POC Glucose (mg/dL) 185 H (75-99) mg/dL Microbiology - Last 24 Hours (Table) 03/02/21 10:35 Blood Culture - Preliminary Blood No Growth after 96 hours 03/02/21 10:23 Blood Culture - Preliminary Blood No Growth after 96 hours Assessment and Plan Assessment: Right third toe osteomyelitis with foot cellulitis status post third toe amputation on 03/04, healing C. diff colitis, improving Diabetes mellitus with hyperglycemia Plan: This is a pleasant 66 years old male who presents with right foot cellulitis status post third toe amputation Continue with antibiotics of Unasyn and by mouth vancomycin Continue with normal saline and lower A2 100 mL per hour Glucose and continue with metformin, increase femoral to 2 mg daily. Continue with oral Lasix and aspirin and Plavix Labs and medication were reviewed.. Continue same treatment. Continue with symptomatic treatment. Resume home medication. Monitor lytes and vitals. DVT and GI prophylaxis. Further recommendations as per clinical course of the patient DVT prophylaxis: Subcutaneous heparin GI Prophylaxis: Pepcid PT/OT: Pending Prognosis is guarded
[2021-03-06] MEDS: FAMOTIDINE 20 MG/2 ML VIAL IV SCH (22:08)
[2021-03-06] MEDS: HEPARIN SODIUM,PORCINE/PF 5,000 UNIT/0.5 ML SYRINGE SQ SCH (22:09)
[2021-03-07] MEDS: AMPICILLIN-SULBACTAM 3 GM in SODIUM CHLORIDE 0.9% 100 ML IVPB SCH ×4 (01:46→19:50)
--- NOTE | 2021-03-07 01:54 | PN ---
PROGRESS NOTE DATE OF SERVICE: 03/06/2021 REASON FOR FOLLOWUP: 1. Right third toe osteomyelitis/ . 2. C. difficile colitis. INTERVAL HISTORY: Patient is afebrile. The patient is breathing comfortably. The patient denies any chest pain, shortness of breath or cough. No abdominal pain, diarrhea has resolved. Denies pain to the right foot area. PHYSICAL EXAMINATION: Blood pressure 118/72 with a pulse of 85, temperature is 97.6. He is 97% on room air. General description is an elderly male lying in bed in no distress. Respiratory system: Unlabored breathing and is clear to auscultation anteriorly. Heart S1, S2. Regular rate and rhythm. Abdomen soft, no tenderness. LABS: No new labs have been obtained today. DIAGNOSTIC IMPRESSION AND PLAN: 1. Patient with right third toe diabetic foot infection with wet gangrene status post amputation with infected part removed. The patient will need any antibiotic therapy. On Unasyn, will be discontinued on discharge. 2. Patient with C difficile colitis clinically responding to oral vancomycin to continue and monitor clinical course closely. MMODL / IJN: [id number] /
[2021-03-07] MEDS: LEVOTHYROXINE 50 MCG TAB PO SCH (05:47)
[2021-03-07 07:20] LABS: Glucose,Whole Blood 182 mg/dL (75-99)
--- NOTE | 2021-03-07 08:17 | P.PN ---
Progress Note - Text 66-year-old gentleman patient had a third toe amputation diabetic wet gangrene. Patient also has a C. difficile responding to oral antibiotic we'll change her dressing the base of the wound is granulating we'll continue with exercise silver change every 48 hours. Patient is under care of infectious disease for IV antibiotic
[2021-03-07] MEDS: MULTIVITAMINS, THERA 1 EACH TAB PO SCH (08:19)
[2021-03-07] MEDS: ASPIRIN 81 MG PO SCH (08:19)
[2021-03-07] MEDS: RANOLAZINE 500 MG TAB.ER.12H PO SCH ×2 (08:19→19:56)
[2021-03-07] MEDS: CLOPIDOGREL 75 MG TAB PO SCH (08:19)
[2021-03-07] MEDS: FAMOTIDINE 20 MG/2 ML VIAL IV SCH ×2 (08:19→19:53)
[2021-03-07] MEDS: FUROSEMIDE 40 MG TAB PO SCH (08:19)
[2021-03-07] MEDS: lisinopriL 10 MG TAB PO SCH (08:20)
[2021-03-07] MEDS: GLIMEPIRIDE 1 MG TAB PO SCH (08:21)
[2021-03-07] MEDS: metFORMIN 500 MG TAB PO SCH ×2 (08:21→17:34)
[2021-03-07] MEDS: LACTOBACILLUS ACIDOPH & BULGAR 1 EACH PACKET PO SCH ×2 (08:22→19:52)
[2021-03-07] MEDS: AMIODARONE 200 MG TAB PO SCH (08:23)
[2021-03-07] MEDS: HEPARIN SODIUM,PORCINE/PF 5,000 UNIT/0.5 ML SYRINGE SQ SCH ×2 (08:23→19:53)
[2021-03-07] MEDS: ISOSORBIDE MONONITRATE ER 60 MG TAB.ER.24H PO SCH (08:23)
[2021-03-07] MEDS: PRAVASTATIN SODIUM 40 MG TAB PO SCH (08:24)
[2021-03-07] MEDS: INSULIN ASPART (NovoLOG) 100 UNIT/ML VIAL SQ SCH ×4 (08:25→21:04)
[2021-03-07] MEDS: VANCOMYCIN 125 MG CAPSULE PO SCH ×4 (08:26→21:01)
[2021-03-07] MEDS: METOPROLOL SUCCINATE (ER) 100 MG TAB.ER.24H PO SCH (08:26)
[2021-03-07 11:08] LABS: African American GFR (CKD) 87.1 (60.0-200.0); Anion Gap 11.4 mmol/L (10.00-18.00); BUN/Creat Ratio 15.59 Ratio (12.00-20.00); Blood Urea Nitrogen 15.9 mg/dL (9.0-27.0); Calcium 8.6 mg/dL (8.7-10.3); Carbon Dioxide 25.2 mmol/L (20.0-27.5); Magnesium 1.6 mg/dL (1.5-2.4); Non-African American GFR(CKD) 75.2 (60.0-200.0); Potassium 3.8 mmol/L (3.5-5.5)
[2021-03-07 12:11] LABS: Glucose,Whole Blood 178 mg/dL (75-99)
[2021-03-07] MEDS: SODIUM CHLORIDE 0.9% 1,000 ML IV SCH ×3 (13:41→19:56)
[2021-03-07 17:14] LABS: Glucose,Whole Blood 177 mg/dL (75-99)
--- NOTE | 2021-03-07 19:39 | P.PN ---
Subjective This is a history and physical an 66-year-old white male with known history of long-term type 2 diabetes who states over this past weekend his toe started becoming gangrenous appearing and black. It started draining. He came in and was evaluated in the emergency room and was shown to have ostial myelitis most likely on plain film. The patient states minimal pain. Patient evaluated by infectious disease and vascular surgery team, he underwent to amputation on 03/04. Currently his skin doing well and his right toe wound is covered with dressing Also is receiving IV Unasyn and by mouth vancomycin for his C. diff colitis. Patient with no abdominal pain, tolerating regular diet, he states that his diarrhea is better today but still have a little bit runny bowel movement. Yesterday Amaryl 1 mg added to his metformin 1000 mg, sugars better in the morning but still high in the evening, we're going to increase the dose to 2 mg tomorrow. 03/07/2021 Patient still on IV antibiotics of Unasyn for his amputated third toe infection. His wounds and cellulitis are healing and anticipate to discontinue antibiotics upon discharge per [facility] team recommendation especially in view of his C. diff which is improving gradually. No abdominal pain and he tolerates diet well and have fair appetite however he still had it bouts of bowel movement yesterday and 3 this morning. Glucose looks well controlled around 170s after increased Amaryl to 2 mg on the top of his metformin 1000. We will keep monitoring for now. Labs are reviewed in the looks stable as well as vitals. No more fevers since admission Objective - Vital Signs Vital signs: Vital Signs Temp 97.5 F L 03/07/21 04:44 Pulse 71 03/07/21 04:44 Resp 16 03/07/21 04:44 BP 107/70 03/07/21 04:44 Pulse Ox 96 03/07/21 04:44 Intake & Output 03/06/21 03/07/21 03/07/21 18:59 06:59 18:59 Intake Total 840 800 Balance 840 800 Intake: Intake, IV Titration 840 Amount Sodium Chloride 0.9% 1, 840 000 ml @ 100 mls/hr IV . Q10H [facility] Rx#:[id number] Oral 800 Other: Voiding Method Toilet Toilet Urinal Urinal # Voids 2 # Bowel Movements 1 - Exam GENERAL: The patient is alert and oriented x3, not in any acute distress. Well developed, well nourished. HEENT: Pupils are round and equally reacting to light. EOMI. No scleral icterus. No conjunctival pallor. Normocephalic, atraumatic. No pharyngeal erythema. No thyromegaly. CARDIOVASCULAR: S1 and S2 present. No murmurs, rubs, or gallops. PULMONARY: Chest is clear to auscultation, no wheezing or crackles. ABDOMEN: Soft, nontender, nondistended, normoactive bowel sounds. No palpable organomegaly. MUSCULOSKELETAL: No joint swelling or deformity. -EXTREMITIES: No cyanosis, clubbing, or pedal edema. Right foot wound is in a dressing, wound is healing NEUROLOGICAL: Gross neurological examination did not reveal any focal deficits. SKIN: No rashes. no petechiae. - Labs CBC & Chem 7: 03/05/21 03:30 03/07/21 04:20 Labs: Abnormal Lab Results - Last 24 Hours (Table) 03/06/21 03/06/21 03/06/21 Range/Units 12:06 17:15 20:18 POC Glucose (mg/dL) 257 H 152 H 185 H (75-99) mg/dL 03/07/21 Range/Units 07:15 POC Glucose (mg/dL) 182 H (75-99) mg/dL Microbiology - Last 24 Hours (Table) 03/02/21 10:35 Blood Culture - Preliminary Blood No Growth after 96 hours 03/02/21 10:23 Blood Culture - Preliminary Blood No Growth after 96 hours Assessment and Plan Assessment: Right third toe osteomyelitis with foot cellulitis status post third toe amputation on 03/04, healing C. diff colitis, improving Diabetes mellitus with hyperglycemia Plan: This is a pleasant 66 years old male who presents with right foot cellulitis sta tus post third toe amputation Continue with antibiotics of Unasyn and by mouth vancomycin Continue with normal saline and lower A2 100 mL per hour Glucose and continue with metformin, increase femoral to 2 mg daily. Continue with oral Lasix and aspirin and Plavix Labs and medication were reviewed.. Continue same treatment. Continue with symptomatic treatment. Resume home medication. Monitor lytes and vitals. DVT and GI prophylaxis. Further recommendations as per clinical course of the angle ent DVT prophylaxis: Subcutaneous heparin GI Prophylaxis: Pepcid PT/OT: Pending Prognosis is guarded
[2021-03-07] MEDS: ACETAMINOPHEN TAB 325 MG TAB PO PRN (19:52)
[2021-03-07 20:23] LABS: Glucose,Whole Blood 218 mg/dL (75-99)
--- NOTE | 2021-03-07 23:31 | PN ---
PROGRESS NOTE DATE OF SERVICE: 03/07/2021 REASON FOR FOLLOWUP: 1. Right third toe diabetic foot infection with gangrene. 2. C difficile colitis. INTERVAL HISTORY: The patient is afebrile. The patient is breathing comfortably. Denies having any chest pain or shortness of breath or cough or abdominal pain. Still having diarrhea, but has slightly slowed down in frequency and slightly forming up. Denies pain to the right foot. PHYSICAL EXAMINATION: Blood pressure 143/81, pulse of 87, temperature 97.5. He is 97% on room air. General description is an elderly male lying in bed in no distress. Respiratory system: Unlabored breathing. Clear to auscultation anteriorly. Heart S1, S2. Regular rate and rhythm. Abdomen soft, no tenderness. Right foot is currently dressed. No obvious drainage on the dressing. LABS: BUN of 15, creatinine is 1.0. No local cultures were done. DIAGNOSTIC IMPRESSION AND PLAN: 1. Patient with right third toe gangrene in this patient who is status post amputation of the right third toe with infected part removed. Will long-term antibiotic. Continue with the current antibiotic therapy with Unasyn. 2. Patient with Clostridium difficile colitis, slowly responding to the oral vancomycin; to continue. Encouraged to increase yogurt and probiotic intake. MMODL / IJN: [id number] /
[2021-03-08] MEDS: AMPICILLIN-SULBACTAM 3 GM in SODIUM CHLORIDE 0.9% 100 ML IVPB SCH ×3 (02:13→14:20)
[2021-03-08] MEDS ORDERED: NITROGLYCERIN SL TABS 0.4 MG TAB SUBLINGUAL ONE (03:12)
[2021-03-08 04:58] VITALS: TEMP 97.9
[2021-03-08] MEDS: LEVOTHYROXINE 50 MCG TAB PO SCH (05:06)
[2021-03-08 07:43] LABS: Glucose,Whole Blood 168 mg/dL (75-99)
--- NOTE | 2021-03-08 07:57 | P.PN ---
Subjective Principal diagnosis: Osteomyelitis digit of the right foot This is a continue progress on a 66-year-old diabetic with Charcot foot. The patient postop day #4 for third of fourth digit medication related asked myelitis. The patient states diarrhea is improved. We are waiting antibiotic choice for osteomyelitis treatment after appropriate amputation Objective - Vital Signs Vital signs: Vital Signs Temp 97.9 F 03/08/21 04:57 Pulse 87 03/08/21 04:57 Resp 16 03/08/21 04:57 BP 110/72 03/08/21 04:57 Pulse Ox 93 L 03/08/21 04:57 Intake & Output 03/07/21 03/08/21 03/08/21 18:59 06:59 18:59 Intake Total 580 1080 Balance 580 1080 Intake: Intake, IV Titration 100 600 Amount Ampicillin-Sulbactam 3 gm 100 In Sodium Chloride 0.9% 100 ml @ 200 mls/hr IVPB Q6H [facility] Rx#:[id number] Sodium Chloride 0.9% 1, 600 000 ml @ 50 mls/hr IV . Q20H [facility] Rx#:[id number] Oral 480 480 Other: Voiding Method Toilet Urinal # Voids 3 2 - Constitutional General appearance: Present: cooperative, no acute distress - EENT Eyes: Absent: abnormal pupil - Neck Neck: Absent: lymphadenopathy - Respiratory Respiratory: bilateral: CTA - Cardiovascular Rhythm: regular Heart sounds: normal: S1, S2 Abnormal Heart Sounds: Absent: S3 Gallop - Gastrointestinal General gastrointestinal: Present: soft. Absent: tenderness - Integumentary Integumentary Comment(s): Healing wound. - Labs CBC & Chem 7: 03/05/21 03:30 03/07/21 04:20 Labs: Abnormal Lab Results - Last 24 Hours (Table) 03/07/21 03/07/21 03/07/21 Range/Units 04:20 12:09 17:12 Glucose 175 H (70-110) mg/dL POC Glucose (mg/dL) 178 H 177 H (75-99) mg/dL Calcium 8.6 L (8.7-10.3) mg/dL 03/07/21 03/08/21 Range/Units 20:21 07:39 Glucose (70-110) mg/dL POC Glucose (mg/dL) 218 H 168 H (75-99) mg/dL Calcium (8.7-10.3) mg/dL Microbiology - Last 24 Hours (Table) 03/02/21 10:35 Blood Culture - Preliminary Blood No Growth after 120 hours 03/02/21 10:23 Blood Culture - Preliminary Blood No Growth after 120 hours Assessment and Plan (1) Cellulitis Current Visit: Yes Status: Acute Code(s): L03.90 - CELLULITIS, UNSPECIFIED SNOMED Code(s): 770013898 (2) Osteomyelitis Current Visit: Yes Status: Acute Code(s): M86.9 - OSTEOMYELITIS, UNSPECIFIED SNOMED Code(s): 21268754 (3) CAD (coronary artery disease) Current Visit: No Status: Acute Code(s): I25.10 - ATHSCL HEART DISEASE OF [place] CORONARY ARTERY W/O ANG PCTRS SNOMED Code(s): 87066967 (4) Diabetes Current Visit: No Status: Acute Code(s): E11.9 - TYPE 2 DIABETES MELLITUS W ITHOUT COMPLICATIONS SNOMED Code(s): 32800404 Plan: Empiric antibiotic treatment. Continue current regimen of treatment Status post amputation. I suspect he will need some form of antibiotic treatment past discharge. Await anabiotic occult treatment from infectious disease. Anticipate discharge in next 24-48 hours
[2021-03-08 09:13] LABS: African American GFR (CKD) 94.5 (60.0-200.0); Anion Gap 11.7 mmol/L (10.00-18.00); BUN/Creat Ratio 14.88 Ratio (12.00-20.00); Blood Urea Nitrogen 14.2 mg/dL (9.0-27.0); Calcium 8.9 mg/dL (8.7-10.3); Carbon Dioxide 24.7 mmol/L (20.0-27.5); Magnesium 1.5 mg/dL (1.5-2.4); Non-African American GFR(CKD) 81.5 (60.0-200.0)
[2021-03-08] MEDS: LACTOBACILLUS ACIDOPH & BULGAR 1 EACH PACKET PO SCH (09:18)
[2021-03-08] MEDS: lisinopriL 10 MG TAB PO SCH (09:19)
[2021-03-08] MEDS: MULTIVITAMINS, THERA 1 EACH TAB PO SCH (09:19)
[2021-03-08] MEDS: CLOPIDOGREL 75 MG TAB PO SCH (09:19)
[2021-03-08] MEDS: FAMOTIDINE 20 MG/2 ML VIAL IV SCH (09:19)
[2021-03-08] MEDS: FUROSEMIDE 40 MG TAB PO SCH (09:19)
[2021-03-08] MEDS: HEPARIN SODIUM,PORCINE/PF 5,000 UNIT/0.5 ML SYRINGE SQ SCH (09:19)
[2021-03-08] MEDS: AMIODARONE 200 MG TAB PO SCH (09:19)
[2021-03-08] MEDS: ASPIRIN 81 MG PO SCH (09:19)
[2021-03-08] MEDS: ISOSORBIDE MONONITRATE ER 60 MG TAB.ER.24H PO SCH (09:19)
[2021-03-08] MEDS: metFORMIN 500 MG TAB PO SCH ×2 (09:19→17:52)
[2021-03-08] MEDS: RANOLAZINE 500 MG TAB.ER.12H PO SCH (09:20)
[2021-03-08] MEDS: PRAVASTATIN SODIUM 40 MG TAB PO SCH (09:20)
[2021-03-08] MEDS: INSULIN ASPART (NovoLOG) 100 UNIT/ML VIAL SQ SCH ×3 (09:20→17:53)
[2021-03-08] MEDS: GLIMEPIRIDE 1 MG TAB PO SCH (09:20)
[2021-03-08] MEDS: VANCOMYCIN 125 MG CAPSULE PO SCH ×3 (09:21→17:52)
[2021-03-08] MEDS: METOPROLOL SUCCINATE (ER) 100 MG TAB.ER.24H PO SCH (09:21)
[2021-03-08 12:39] LABS: Glucose,Whole Blood 107 mg/dL (75-99)
[2021-03-08 12:46] VITALS: BP 112/73; PULSE 80; RESP 20
[2021-03-08 17:26] LABS: Glucose,Whole Blood 203 mg/dL (75-99)
[2021-03-08] MEDS ORDERED: FAMOTIDINE 20 MG TAB PO SCH (21:00)
== END 2021-03-08 19:50 | disposition home health service (06) | DRG 854 ==
LOC: EC 09:56 → 5NMEDONC 11:58
PROVIDERS: ADMIT Family Medicine; ATTEND Family Medicine
PROC: 0Y6T0Z0 Detachment at Right 3rd Toe, Complete, Open Approach (ICD-10-PCS; principal; 2021-03-04 07:30)
DX: A41.9 Sepsis, unspecified organism (principal); E11.52 Type 2 diabetes mellitus with diabetic peripheral angiopathy with gangrene; A04.72 Enterocolitis due to Clostridium difficile, not specified as recurrent; M86.171 Other acute osteomyelitis, right ankle and foot; L03.90 Cellulitis, unspecified; L03.115 Cellulitis of right lower limb; I50.22 Chronic systolic (congestive) heart failure; E03.9 Hypothyroidism, unspecified; E11.610 Type 2 diabetes mellitus with diabetic neuropathic arthropathy; E11.41 Type 2 diabetes mellitus with diabetic mononeuropathy; E11.628 Type 2 diabetes mellitus with other skin complications; E11.65 Type 2 diabetes mellitus with hyperglycemia; E11.69 Type 2 diabetes mellitus with other specified complication; E78.5 Hyperlipidemia, unspecified; E86.0 Dehydration; I10 Essential (primary) hypertension; I25.10 Atherosclerotic heart disease of native coronary artery without angina pectoris; I25.2 Old myocardial infarction; M19.041 Primary osteoarthritis, right hand; M19.042 Primary osteoarthritis, left hand; Z20.822 Contact with and (suspected) exposure to COVID-19; Z79.02 Long term (current) use of antithrombotics/antiplatelets; Z79.2 Long term (current) use of antibiotics; Z79.4 Long term (current) use of insulin; Z79.82 Long term (current) use of aspirin; Z79.84 Long term (current) use of oral hypoglycemic drugs; Z79.890 Hormone replacement therapy; Z79.899 Other long term (current) drug therapy; Z80.42 Family history of malignant neoplasm of prostate; Z83.3 Family history of diabetes mellitus; Z85.46 Personal history of malignant neoplasm of prostate; Z95.0 Presence of cardiac pacemaker; Z95.1 Presence of aortocoronary bypass graft; Z95.5 Presence of coronary angioplasty implant and graft
CPT/HCPCS: 36415; 80048; 80053; 80202; 83605; 83735; 85025; 85027; 87040; 87324; 87635; 88305; 88311; 96365; 96367; 99284

== ENCOUNTER → 2021-07-27 | Outpatient (CLI) | payer MEDICARE, BC | END | disposition home or self-care (01) | LOC: LABWHC1 09:19 | PROVIDERS: ATTEND Nurse Practitioner Family | DX: I25.799 Atherosclerosis of other coronary artery bypass graft(s) with unspecified angina pectoris (principal) | CPT/HCPCS: 36415; 84443; 84450; 84460 ==

== ENCOUNTER → 2022-06-08 | Outpatient (CLI) | payer MEDICARE, BC ==
--- NOTE | 2022-06-08 09:14 | XR ---
EXAMINATION TYPE: XR shoulder complete 3 views LT DATE OF EXAM: 06/08/2022 Comparison: None Clinical History: 67-year-old male PAIN R52 Findings: Mild degenerative joint space narrowing at the AC joint. Subacromial space is preserved. Smooth delin eation to the greater tuberosity. No acute fracture, subluxation, dislocation. There may be minimal d egenerative spurring at the inferior glenohumeral joint. Left-sided pacemaker generator partially see n. Median sternotomy wires post-CABG clips also noted. Impression: Mild degenerative joint space narrowing at the AC joint. There is minimal degenerative spurring at th e glenohumeral joint. No acute osseous abnormality seen.
== END | disposition home or self-care (01) ==
LOC: RADXRMAIN 08:41
PROVIDERS: ATTEND Family Medicine
DX: M19.012 Primary osteoarthritis, left shoulder (principal)

== ENCOUNTER 2022-08-01 09:32 | Inpatient (IN) | payer MEDICARE, BC ==
[2022-08-01 10:46] LABS: Basophils % (A) 0 %; Eosinophils # (A) 0.3 k/uL (0-0.7); Eosinophils % (A) 2 %; HCT 46.2 % (39.0-53.0); Lymphocytes # (A) 1.1 k/uL (1.0-4.8); Lymphocytes % (A) 10 %; MCH 27.7 pg (25.0-35.0); MCHC 32.2 g/dL (31.0-37.0); MCV 85.8 fL (80.0-100.0); Mean Platelet Volume 8.9; Monocytes # (A) 0.8 k/uL (0-1.0); Monocytes % (A) 7 %; Neutrophils # (A) 8.5 k/uL (1.3-7.7); Neutrophils % (A) 76 %; Platelet Count 298 k/uL (150-450); Poikilocytosis Slight; RBC 5.38 m/uL (4.30-5.90); WBC 11.2 k/uL (3.8-10.6)
[2022-08-01 10:52] LABS: HGB 14.9 gm/dL (13.0-17.5)
[2022-08-01 10:59] LABS: Potassium 4.2 mmol/L (3.5-5.1)
--- NOTE | 2022-08-01 10:59 | XR ---
EXAMINATION TYPE: XR chest 2V DATE OF EXAM: 08/01/2022 COMPARISON: 07/25/2022 INDICATION: Cough, shortness of breath TECHNIQUE: Frontal and lateral views of the chest are obtained. FINDINGS: The heart size is normal. The pulmonary vasculature is normal. The lungs are clear. Previous right lower lobe infiltrate and pleural effusion have resolved. Pacemak er overlies left chest. Sternotomy wires are present. IMPRESSION: 1. No acute pulmonary process.
[2022-08-01 11:00] LABS: Albumin 4.7 g/dL (3.5-5.0); Calcium 10.2 mg/dL (8.4-10.2); Total Protein 8.5 g/dL (6.3-8.2)
[2022-08-01] MEDS ORDERED: SODIUM CHLORIDE 0.9% 500 ML 500 ML IV ONE ×2 (11:12→12:13)
--- NOTE | 2022-08-01 12:16 | ED ---
General Adult HPI - General Source: patient, RN notes reviewed Mode of arrival: wheelchair Limitations: no limitations <Melanie Crabtree - Last Filed: 08/01/22 19:39> <Malgorzata Neri - Last Filed: 08/03/22 22:37> - General Chief complaint: Dizziness Stated complaint: Dizzness VON Time Seen by Provider: 08/01/22 10:07 - History of Present Illness Initial comments: 67-year-old male presents emergency department chief complaint of lightheadedness. Patient was recently discharged from the hospital after a heart failure exacerbation. He states that this morning he was going to get his labs drawn when he felt very lightheaded. He states that he was recently put on new blood pressure medication after his hospital discharge. He states he did not take the medication yesterday but did take it this morning. (Melanie Crabtree) - Related Data Home Medications Medication Instructions Recorded Confirmed Aspirin 81 mg PO DAILY 04/28/20 08/01/22 Clopidogrel Bisulfate [Plavix] 75 mg PO DAILY 04/28/20 08/01/22 Levothyroxine Sodium [Synthroid] 50 mcg PO DAILY 04/28/20 08/01/22 Pravastatin Sodium [Pravachol] 40 mg PO DAILY 04/28/20 08/01/22 Ranolazine [Ranolazine ER] 500 mg PO BID 04/28/20 08/01/22 Isosorbide Mononitrate ER [Imdur] 60 mg PO DAILY 03/02/21 08/01/22 Metoprolol Succinate (ER) [Toprol 100 mg PO DAILY 03/02/21 08/01/22 XL] Nitroglycerin Sl Tabs [Nitrostat] 0.4 mg SUBLINGUAL Q5M PRN 03/08/21 08/01/22 Amiodarone [Cordarone] 100 mg PO DAILY 07/25/22 08/01/22 Glimepiride [Amaryl] 1 mg PO AC-BRKFST 07/25/22 08/01/22 Insulin Aspart [NovoLOG Flexpen] 15 - 26 units SQ AC-TID 07/25/22 08/01/22 Insulin Glargine,Hum.rec.anlog 40 units SQ HS 07/25/22 08/01/22 [Lantus Solostar Pen] L.acidoph,Paracasei, B.lactis 1 cap PO DAILY 07/25/22 08/01/22 [Probiotic] metFORMIN HCL ER [Glucophage XR] 1,000 mg PO BID 07/25/22 08/01/22 Sacubitril/Valsartan [Entresto 24 1 tab PO BID 08/01/22 08/01/22 mg-26 mg Tablet] Previous Rx's Medication Instructions Recorded Zolpidem [Ambien] 5 mg PO HS PRN #30 tab 05/01/20 Acetaminophen Tab [Tylenol] 650 mg PO Q6HR PRN tab 07/28/22 Dapagliflozin Propanediol [Farxiga] 10 mg PO DAILY #30 tab 07/28/22 Furosemide [Lasix] 40 mg PO BID 30 Days #60 tab 07/28/22 Spironolactone [Aldactone] 25 mg PO DAILY #30 tab 07/28/22 metOLazone [Zaroxolyn] 2.5 mg PO DAILY #30 tab 07/28/22 Allergies Allergy/AdvReac Type Severity Reaction Status Date / Time exenatide [From Byetta] Allergy Rash/Hives Verified 08/01/22 12:56 Iodinated Contrast Media Allergy Unknown Verified 08/01/22 12:56 latex Allergy Rash/Hives Verified 08/01/22 12:56 liraglutide [From Victoza] Allergy Rash/Hives Verified 08/01/22 12:56 Review of Systems ROS Other: All systems not noted in ROS Statement are negative. <Melanie Crabtree - Last Filed: 08/01/22 19:39> ROS Other: All systems not noted in ROS Statement are negative. <Malgorzata Neri - Last Filed: 08/03/22 22:37> ROS Statement: Those systems with pertinent positive or pertinent negative responses have been documented in the HPI. Past Medical History Past Medical History: Coronary Artery Disease (CAD), Cancer, Diabetes Mellitus, Eye Disorder, GERD/Reflux, Hyperlipidemia, Hypertension, Myocardial Infarction (OH), Osteoarthritis (OA), Pneumonia, Prostate Disorder, Thyroid Disorder Additional Past Medical History / Comment(s): IDDM type II, neuropathy bilateral legs/feet, R charcot foot, OH per EKG, prostate cancer with prostatectomy/then PSA started to climb so he then recieved radiation treatments, hiatal hernis, diverticuliltis with bowel resection, frequent headaches/migraines, arthritis bilateral hands, occasional back pain, hypothyroid, starting of bilateral cataracts. Last Myocardial Infarction Date:: unkn History of Any Multi-Drug Resistant Organisms: None Reported Past Surgical History: Bowel Resection, Coronary Bypass/CABG, Heart Catheterization With Stent, Orthopedic Surgery, Pacemaker, Prostate Surgery Additional Past Surgical History / Comment(s): 2002 CABG 3 vessel, PCI with stents in 2008, pacemaker in 2017, prostatectomy, EGD, colonoscopy, bowel resect ion, R foot bone removal. Past Anesthesia/Blood Transfusion Reactions: No Reported Reaction Date of Last Stent Placement:: 2008 Type of Cardiac Device: Permanent Pacemaker Device Placement Date:: 2017 Past Psychological History: No Psychological Hx Reported Smoking Status: Never smoker Past Alcohol Use History: None Reported Past Drug Use History: None Reported - Past Family History Father Family Medical History: Cancer Additional Family Medical History / Comment(s): Father of prostate cancer. Mother Family Medical History: Diabetes Mellitus Additional Family Medical History / Comment(s): Mother had heart problems. <Melanie Crabtree - Last Filed: 08/01/22 19:39> General Exam Limitations: no limitations General appearance: alert, in no apparent distress Head exam: Present: atraumatic, normocephalic, normal inspection Eye exam: Present: normal appearance, PERRL, EOMI. Absent: scleral icterus, conjunctival injection, periorbital swelling ENT exam: Present: normal exam, mucous membranes dry Neck exam: Present: normal inspection. Absent: tenderness, meningismus, lymphadenopathy Respiratory exam: Present: normal lung sounds bilaterally. Absent: respiratory distress, wheezes, rales, rhonchi, stridor Cardiovascular Exam: Present: regular rate, normal rhythm, normal heart sounds. Absent: systolic murmur, diastolic murmur, rubs, gallop, clicks GI/Abdominal exam: Present: soft, normal bowel sounds. Absent: distended, tenderness, guarding, rebound, rigid Extremities exam: Present: normal inspection. Absent: pedal edema Neurological exam: Present: alert, oriented X3, CN II-XII intact Psychiatric exam: Present: normal affect, normal mood Skin exam: Present: warm, dry, intact, normal color. Absent: rash, cyanosis, diaphoretic <Melanie Crabtree - Last Filed: 08/01/22 19:39> Course Vital Signs 08/01/22 08/01/22 08/01/22 09:37 11:09 11:41 Temperature 97.5 F L Pulse Rate 97 76 76 Respiratory 16 18 16 Rate Blood Pressure 93/66 74/46 87/57 O2 Sat by Pulse 100 97 94 L Oximetry 08/01/22 08/01/22 08/01/22 12:52 13:29 15:28 Temperature Pulse Rate 79 78 77 Respiratory 18 18 18 Rate Blood Pressure 85/54 84/56 80/53 O2 Sat by Pulse 94 L 98 99 Oximetry 08/01/22 16:21 Temperature Pulse Rate 78 Respiratory 18 Rate Blood Pressure 87/57 O2 Sat by Pulse 97 Oximetry Medical Decision Making - Lab Data Result diagrams: 08/01/22 10:27 08/01/22 10:27 <Melanie Crabtree - Last Filed: 08/01/22 19:39> - Lab Data Result diagrams: 08/01/22 10:27 08/03/22 07:32 <Malgorzata Neri - Last Filed: 08/03/22 22:37> - Medical Decision Making Was pt. sent in by a medical professional or institution (, PA, OVERNIGHT CASHIER, urgent care, hospital, or retirement...) When possible be specific @ -No Did you speak to anyone other than the patient for history (EMS, parent, family, police, friend...)? What history was obtained from this source @ -No Did you review nursing and triage notes (agree or disagree)? Why? @ -I reviewed and agree with nursing and triage notes Were old charts reviewed (outside hosp., previous admission, EMS record, old EKG, old radiological studies, urgent care reports/EKG's, retirement records)? Report findings @ -No old charts were reviewed Differential Diagnosis (chest pain, altered mental status, abdominal pain women, abdominal pain men, vaginal bleeding, weakness, fever, dyspnea, syncope, headache, dizziness, GI bleed, back pain, seizure, CVA, palpatations, mental health, musculoskeletal)? @ -Differential Dizziness: Benign paroxysmal positional Vertigo, Menieres disease, otitis media, acoustic neuroma, vertebrobasilar insufficiency, cerebellar stroke, encephalitis, hypovolemic, arrhythmia, coronary artery syndrome, anemia, this is not meant to be an all-inclusive list EKG interpreted by me (3pts min.). @ -EKG at 0946 shows ventricular pacemaker rate 81, OK 133, QRS 150, QTQTc 44 3480 X-rays interpreted by me (1pt min.). @ -Chest x-ray shows no acute pulmonary process normal heart size, normal pulmonary vasculature, lungs clear CT interpreted by me (1pt min.). @ -None done U/S interpreted by me (1pt. min.). @ -None done What testing was considered but not performed or refused? (CT, X-rays, U/S, labs)? Why? @ -None What meds were considered but not given or refused? Why? @ -None Did you discuss the management of the patient with other professionals (professionals i.e. , PA, OVERNIGHT CASHIER, lab, RT, psych nurse, psychotherapist social worker, nanny caregiver, teacher, customs and immigration officer, case operator)? Give summary @ -Case is discussed with Dr. Auguste who recommended inpatient admission for rehydration and cardiology consult Was smoking cessation discussed for >3mins.? @ -No Was critical care preformed (if so, how long)? @ -No Were there social determinants of health that impacted care today? How? (Homelessness, low income, unemployed, alcoholism, drug addiction, transportation, low edu. Level, literacy, decrease access to med. care, [place] [facility], rehab)? @ -No Was there de-escalation of care discussed even if they declined (Discuss DNR or withdrawal of care, Hospice)? DNR status @ -No What co-morbidities impacted this encounter? (DM, HTN, Smoking, COPD, CAD, Cancer, CVA, ARF, Chemo, Hep., AIDS, mental health diagnosis, sleep apnea, morbid obesity)? @ -None Was patient admitted / discharged? Hospital course, mention meds given and route, prescriptions, significant lab abnormalities, going to OR and other pertinent info. @ -Admitted. Patient presented to the emergency department with chief complaint of lightheadedness 1 day. Patient states that he was coming to the lab to get his blood drawn when he started feeling significantly lightheaded while walking. Patient found to be hypotensive at triage with blood pressure of 93/56. Patient is well-appearing, nondiaphoretic. EKG was obtained. CXR showed no pulmonary process, resolution of pleural effusions from recent admission. Labs showed CBC showed WBC 11.2, hemoglobin 14.9, hematocrit 46.2; CMP showed sodium 133, potassium 4.2, BUN 50, creatinine 1.78, glucose 278. Patient rec eived 500 mL bolus of normal saline and blood pressure was reevaluated , patient was given 500 mL bolus blood pressure was 87/57 another 500 mL bolus was given Case was discussed with Dr. Auguste who recommended inpatient admission for rehydration and cardiology consult. Case was discussed with Dr. Neri. Undiagnosed new problem with uncertain prognosis? @ -No Drug Therapy requiring intensive monitoring for toxicity (Heparin, Nitro, Insul in, Cardizem)? @ -No Were any procedures done? @ -No Diagnosis/symptom? @ -Hypotension Acute, or Chronic, or Acute on Chronic? @ -Acute Uncomplicated (without systemic symptoms) or Complicated (systemic symptoms)? @ -default Side effects of treatment? @ -No Exacerbation, Progression, or Severe Exacerbation? @ -No Poses a threat to life or bodily function? How? (Chest pain, [place], [place], pneumonia, PE, COPD, DKA, ARF, appy, cholecystitis, CVA, Diverticulitis, Homicidal, Suicidal, threat to staff... and all critical care pts) @ -No (Melanie Crabtree) - Lab Data Lab Results 08/01/22 08/01/22 08/01/22 Range/Units 10:27 10:27 10:27 WBC 11.2 H (3.8-10.6) k/uL RBC 5.38 (4.30-5.90) m/uL Hgb 14.9 D (13.0-17.5) gm/dL Hct 46.2 (39.0-53.0) % MCV 85.8 (80.0-100.0) fL MCH 27.7 (25.0-35.0) pg MCHC 32.2 (31.0-37.0) g/dL RDW 15.0 (11.5-15.5) % Plt Count 298 (150-450) k/uL MPV 8.9 Neutrophils % 76 % Lymphocytes % 10 % Monocytes % 7 % Eosinophils % 2 % Basophils % 0 % Neutrophils # 8.5 H (1.3-7.7) k/uL Lymphocytes # 1.1 (1.0-4.8) k/uL Monocytes # 0.8 (0-1.0) k/uL Eosinophils # 0.3 (0-0.7) k/uL Basophils # 0.0 (0-0.2) k/uL Poikilocytosis Slight Sodium 133 L (137-145) mmol/L Potassium 4.2 (3.5-5.1) mmol/L Chloride 91 L (98-107) mmol/L Carbon Dioxide 26 (22-30) mmol/L Anion Gap 16 mmol/L BUN 50 H (9-20) mg/dL Creatinine 1.78 H (0.66-1.25) mg/dL Est GFR (CKD-EPI)AfAm 44 (>60 ml/min/1.73 sqM) Est GFR (CKD-EPI)NonAf 38 (>60 ml/min/1.73 sqM) Glucose 278 H (74-99) mg/dL Calcium 10.2 (8.4-10.2) mg/dL Total Bilirubin 1.0 (0.2-1.3) mg/dL AST 23 (17-59) U/L ALT 19 (4-49) U/L Alkaline Phosphatase 83 (38-126) U/L Troponin I 0.040 H* (0.000-0.034) ng/mL Total Protein 8.5 H (6.3-8.2) g/dL Albumin 4.7 (3.5-5.0) g/dL Disposition Is patient prescribed a controlled substance at d/c from ED?: No Time of Disposition: 14:50 <Melanie Crabtree - Last Filed: 08/01/22 19:39> <Malgorzata Neri - Last Filed: 08/03/22 22:37> Clinical Impression: Hypotension Disposition: ADMITTED IP TO THIS HOSP Condition: Stable
[2022-08-01] MEDS ORDERED: ACETAMINOPHEN TAB 325 MG TAB PO PRN ×2 (14:31→17:39)
[2022-08-01] MEDS ORDERED: NALOXONE 0.4 MG/ML 1 ML VIAL IV PRN (14:31)
[2022-08-01] MEDS: SODIUM CHLORIDE 0.9% 1,000 ML IV SCH ×2 (16:20→22:19)
[2022-08-01] MEDS ORDERED: DEXTROSE 50% SYRINGE 50 ML IVP PRN ×2 (17:11)
[2022-08-01] MEDS ORDERED: ZOLPIDEM 5 MG TAB PO PRN (17:39)
[2022-08-01] MEDS ORDERED: NITROGLYCERIN SL TABS 0.4 MG TAB SUBLINGUAL PRN (17:39)
[2022-08-01 17:48] LABS: Glucose,Whole Blood 200 mg/dL (70-110)
[2022-08-01] MEDS: INSULIN ASPART (NovoLOG) 100 UNIT/ML VIAL SQ SCH ×2 (18:24→20:54)
[2022-08-01] MEDS: metOLazone 2.5 MG TAB PO SCH (18:24)
[2022-08-01 20:12] LABS: Glucose,Whole Blood 196 mg/dL (70-110)
[2022-08-01] MEDS: RANOLAZINE 500 MG TAB.ER.12H PO SCH (20:54)
[2022-08-01] MEDS: FUROSEMIDE 40 MG TAB PO SCH (20:54)
[2022-08-01] MEDS: SACUBITRIL/VALSARTAN 24 MG-26 MG TABLET PO SCH (20:58)
[2022-08-01] MEDS ORDERED: INSULIN DETEMIR (LEVEMIR) 100 UNIT/ML SYR SQ SCH (21:00)
[2022-08-02 06:03] LABS: Glucose,Whole Blood 115 mg/dL (70-110)
[2022-08-02] MEDS: SODIUM CHLORIDE 0.9% 1,000 ML IV SCH (06:09)
[2022-08-02] MEDS: INSULIN ASPART (NovoLOG) 100 UNIT/ML VIAL SQ SCH ×4 (06:10→20:22)
[2022-08-02] MEDS: CLOPIDOGREL 75 MG TAB PO SCH (08:52)
[2022-08-02] MEDS: PRAVASTATIN SODIUM 40 MG TAB PO SCH (08:52)
[2022-08-02] MEDS: ASPIRIN 81 MG PO SCH (08:52)
[2022-08-02] MEDS: LACTOBACILLUS ACIDOPH & BULGAR 1 EACH PACKET PO SCH (08:52)
[2022-08-02] MEDS: LEVOTHYROXINE 50 MCG TAB PO SCH (08:52)
[2022-08-02] MEDS ORDERED: DAPAGLIFLOZIN PROPANEDIOL 10 MG TABLET PO SCH (09:00)
[2022-08-02] MEDS ORDERED: SPIRONOLACTONE 25 MG TAB PO SCH (09:00)
[2022-08-02] MEDS ORDERED: ISOSORBIDE MONONITRATE ER 60 MG TAB.ER.24H PO SCH (09:00)
[2022-08-02] MEDS ORDERED: METOPROLOL SUCCINATE (ER) 100 MG TAB.ER.24H PO SCH (09:00)
--- NOTE | 2022-08-02 09:11 | P.HPIM ---
History of Present Illness H&P Date: 08/02/22 Chief Complaint: Lightheadedness This is a 67-year-old male who presented to the emergency department with complaint of lightheadedness. He was at the hospital yesterday for lab work and on the way in from the parking lot he had to stop a few times because he felt lightheaded. When getting labs done and it was decided he would go to the ER. He did have a recent admission for a heart failure exacerbation. He did take all of his medications yesterday morning. Patient was given IV fluids and blood pressure is now in the 90s systolic. He states he is feeling better this morning. He is seen sitting up in bed. Further medical history as noted below Review of Systems Constitutional: Denies chills, Denies fever Cardiovascular: Reports lightheadedness, Denies chest pain, Denies dyspnea on exertion Respiratory: Denies cough, Denies dyspnea Gastrointestinal: Denies abdominal pain, Denies nausea Musculoskeletal: Denies leg numbness/tingling, Denies muscle weakness Neurological: Denies headaches, Denies weakness Past Medical History Past Medical History: Coronary Artery Disease (CAD), Cancer, Diabetes Mellitus, Eye Disorder, GERD/Reflux, Hyperlipidemia, Hypertension, Myocardial Infarction ([place]), Osteoarthritis (OA), Pneumonia, Prostate Disorder, Thyroid Disorder Additional Past Medical History / Comment(s): IDDM type II, neuropathy bilateral legs/feet, R charcot foot, [place] per EKG, prostate cancer with prostatectomy/then PSA started to climb so he then recieved radiation treatments, hiatal hernis, diverticuliltis with bowel resection, frequent headaches/migraines, arthritis bilateral hands, occasional back pain, hypothyroid, starting of bilateral cataracts. Last Myocardial Infarction Date:: unkn History of Any Multi-Drug Resistant Organisms: None Reported Past Surgical History: Bowel Resection, Coronary Bypass/CABG, Heart Catheterization With Stent, Orthopedic Surgery, Pacemaker, Prostate Surgery Additional Past Surgical History / Comment(s): 2003 CABG 3 vessel, PCI with stents in 2008, pacemaker in 2017, prostatectomy, EGD, colonoscopy, bowel resection, R foot bone removal. Past Anesthesia/Blood Transfusion Reactions: No Reported Reaction Date of Last Stent Placement:: 2008 Type of Cardiac Device: Permanent Pacemaker Device Placement Date:: 2017 Past Psychological History: No Psychological Hx Reported Smoking Status: Never smoker Past Alcohol Use History: None Reported Past Drug Use History: None Reported - Past Family History Father Family Medical History: Cancer Additional Family Medical History / Comment(s): Father of prostate cancer. Mother Family Medical History: Diabetes Mellitus Additional Family Medical History / Comment(s): Mother had heart problems. Medications and Allergies Home Medications Medication Instructions Recorded Confirmed Type Aspirin 81 mg PO DAILY 04/28/20 08/01/22 History Clopidogrel Bisulfate [Plavix] 75 mg PO DAILY 04/28/20 08/01/22 History Levothyroxine Sodium [Synthroid] 50 mcg PO DAILY 04/28/20 08/01/22 History Pravastatin Sodium [Pravachol] 40 mg PO DAILY 04/28/20 08/01/22 History Ranolazine [Ranolazine ER] 500 mg PO BID 04/28/20 08/01/22 History Zolpidem [Ambien] 5 mg PO HS PRN #30 tab 05/01/20 08/01/22 Rx Isosorbide Mononitrate ER [Imdur] 60 mg PO DAILY 03/02/21 08/01/22 History Metoprolol Succinate (ER) [Toprol 100 mg PO DAILY 03/02/21 08/01/22 History XL] Nitroglycerin Sl Tabs [Nitrostat] 0.4 mg SUBLINGUAL Q5M PRN 03/08/21 08/01/22 History Amiodarone [Cordarone] 100 mg PO DAILY 07/25/22 08/01/22 History Glimepiride [Amaryl] 1 mg PO AC-BRKFST 07/25/22 08/01/22 History Insulin Aspart [NovoLOG Flexpen] 15 - 26 units SQ AC-TID 07/25/22 08/01/22 History Insulin Glargine,Hum.rec.anlog 40 units SQ HS 07/25/22 08/01/22 History [Lantus Solostar Pen] L.acidoph,Paracasei, B.lactis 1 cap PO DAILY 07/25/22 08/01/22 History [Probiotic] metFORMIN HCL ER [Glucophage XR] 1,000 mg PO BID 07/25/22 08/01/22 History Acetaminophen Tab [Tylenol] 650 mg PO Q6HR PRN tab 07/28/22 08/01/22 Rx Dapagliflozin Propanediol [Farxiga] 10 mg PO DAILY #30 tab 07/28/22 08/01/22 Rx Furosemide [Lasix] 40 mg PO BID 30 Days #60 tab 07/28/22 08/01/22 Rx Spironolactone [Aldactone] 25 mg PO DAILY #30 tab 07/28/22 08/01/22 Rx metOLazone [Zaroxolyn] 2.5 mg PO DAILY #30 tab 07/28/22 08/01/22 Rx Sacubitril/Valsartan [Entresto 24 1 tab PO BID 08/01/22 08/01/22 History mg-26 mg Tablet] Allergies Allergy/AdvReac Type Severity Reaction Status Date / Time exenatide [From Byetta] Allergy Rash/Hives Verified 08/01/22 12:56 Iodinated Contrast Media Allergy Unknown Verified 08/01/22 12:56 latex Allergy Rash/Hives Verified 08/01/22 12:56 liraglutide [From Victoza] Allergy Rash/Hives Verified 08/01/22 12:56 Physical Exam Vitals: Vital Signs Temp Pulse Pulse Pulse Pulse Resp BP 08/02/22 08:00 80 80 80 16 08/02/22 04:00 97.7 F 80 18 08/01/22 23:18 77 18 08/01/22 19:39 97.7 F 75 18 08/01/22 17:37 97.5 F L 78 18 08/01/22 16:21 78 18 87/57 08/01/22 15:28 77 18 80/53 08/01/22 13:29 78 18 84/56 08/01/22 12:52 79 18 85/54 08/01/22 11:41 76 16 87/57 08/01/22 11:09 76 18 74/46 08/01/22 09:37 97.5 F L 97 16 93/66 BP BP BP BP Pulse Ox 08/02/22 08:00 95/62 126/77 96 08/02/22 04:00 99/65 98 08/01/22 23:18 98/65 91/53 97 08/01/22 19:39 104/66 90/54 96 08/01/22 17:37 99 08/01/22 16:21 97 08/01/22 15:28 99 08/01/22 13:29 98 08/01/22 12:52 94 L 08/01/22 11:41 94 L 08/01/22 11:09 97 08/01/22 09:37 100 Intake and Output 08/01/22 08/02/22 08/02/22 22:59 06:59 14:59 Intake Total 240 118 Output Total 350 1150 725 Balance -110 -1150 -607 Intake: Oral 240 118 Output: Urine 350 1150 725 Other: Voiding Method Urinal Urinal # Bowel Movements 1 Weight 91.172 kg - Constitutional General appearance: cooperative, no acute distress - EENT Eyes: EOMI, PERRLA - Neck Neck: no lymphadenopathy, normal ROM, no rigidity - Respiratory Respiratory: bilateral: CTA - Cardiovascular No pedal edema Rhythm: regular Heart sounds: normal: S1, S2 - Gastrointestinal General gastrointestinal: soft, no tenderness - Integumentary Integumentary: normal, normal turgor - Psychiatric Psychiatric: A&O x's 3, appropriate affect, intact judgment & insight Results CBC & Chem 7: 08/01/22 10:27 08/01/22 10:27 Labs: Abnormal Lab Results - Last 24 Hours (Table) 08/01/22 08/01/22 08/01/22 Range/Units 10:27 10:27 10:27 WBC 11.2 H (3.8-10.6) k/uL Neutrophils # 8.5 H (1.3-7.7) k/uL Sodium 133 L (137-145) mmol/L Chloride 91 L (98-107) mmol/L BUN 50 H (9-20) mg/dL Creatinine 1.78 H (0.66-1.25) mg/dL Glucose 278 H (74-99) mg/dL POC Glucose (mg/dL) (70-110) mg/dL Troponin I 0.040 H* (0.000-0.034) ng/mL Total Protein 8.5 H (6.3-8.2) g/dL 08/01/22 08/01/22 08/02/22 Range/Units 17:46 20:09 06:01 WBC (3.8-10.6) k/uL Neutrophils # (1.3-7.7) k/uL Sodium (137-145) mmol/L Chloride (98-107) mmol/L BUN (9-20) mg/dL Creatinine (0.66-1.25) mg/dL Glucose (74-99) mg/dL POC Glucose (mg/dL) 200 H 196 H 115 H (70-110) mg/dL Troponin I (0.000-0.034) ng/mL Total Protein (6.3-8.2) g/dL Thrombosis Risk Factor Assmnt - Choose All That Apply Any of the Below Risk Factors Present?: Yes Each Factor Represents 1 point: Obesity (BMI >25) Each Risk Factor Represents 2 Points: Age 61-74 years Other congenital or acquired thrombophilia - If yes, enter type in comment: No Thrombosis Risk Factor Assessment Total Risk Factor Score: 3 Thrombosis Risk Factor Assessment Level: Moderate Risk Assessment and Plan (1) Hypotension Current Visit: Yes Status: Acute Code(s): I95.9 - HYPOTENSION, UNSPECIFIED SNOMED Code(s): 02740618 (2) Congestive heart failure Current Visit: No Status: Acute Code(s): I50.9 - HEART FAILURE, UNSPECIFIED SNOMED Code(s): 93347057 (3) Diabetes Current Visit: No Status: Acute Code(s): E11.9 - TYPE 2 DIABETES MELLITUS WITHOUT COMPLICATIONS SNOMED Code(s): 79189810 (4) GERD (gastroesophageal reflux disease) Current Visit: No Status: Acute Code(s): K21.9 - GASTRO-ESOPHAGEAL REFLUX DISEASE WITHOUT ESOPHAGITIS SNOMED Code(s): 316731255 (5) Thyroid disorder Current Visit: No Status: Acute Code(s): E07.9 - DISORDER OF THYROID, UNSPECIFIED SNOMED Code(s): 84523390 Plan: Medications reconciled. Cardiology has been consulted. Discontinue IV fluids. Check CMP in the morning. Patient seen and evaluated by nurse practitioner, physician in agreement with plan
[2022-08-02 11:44] LABS: Glucose,Whole Blood 200 mg/dL (70-110)
[2022-08-02] MEDS: METOPROLOL SUCCINATE (ER) 100 MG TAB.ER.24H PO SCH (12:34)
[2022-08-02] MEDS: AMIODARONE 100 MG TAB PO SCH (12:36)
[2022-08-02] MEDS: FUROSEMIDE 40 MG TAB PO SCH (12:36)
[2022-08-02] MEDS: RANOLAZINE 500 MG TAB.ER.12H PO SCH ×2 (12:37→20:22)
[2022-08-02] MEDS: metOLazone 2.5 MG TAB PO SCH (12:37)
[2022-08-02] MEDS: SACUBITRIL/VALSARTAN 24 MG-26 MG TABLET PO SCH (12:38)
--- NOTE | 2022-08-02 14:06 | P.CRDCN ---
History of Present Illness Consult date: 08/02/22 Reason for Consult (text): HYPOTENSION History of present illness: HISTORY OF PRESENTING ILLNESS This is a 67-year-old male patient of Dr. Villar with past medical history significant for coronary artery disease status post bypass grafting MACK-LAD, SVG-OM and PDA 2007 and subsequent PCI of the MACK-LAD anastomosis 2008, ischemic cardiomyopathy status post AICD ([facility]), diabetes mellitus, hypertension and dyslipidemia. We have been asked to see in consultation for hypotension. Patient had recent hospitalization earlier this month and was treated for acute on chronic systolic heart failure. Patient was apparently having lab work done and started feeling dizzy saw white spots and his blood pressure was quite low. By the time he was in the emergency center his blood pressure was 74/46. He denies having any chest pain and no shortness of breath. Orthostatics are positive. EKG reveals sinus mechanism with ventricular paced rhythm. WBC 11.2, hemoglobin 14.9, platelet count 298. Sodium 133, potassium 4.2, chloride 91, BUN 50 creatinine 1.78. But sugar 278. Troponin 0.040. Current cardiac medications include amiodarone 100 mg daily, aspirin 81 mg daily, Plavix 75 mg daily, Lasix 40 mg twice daily, imdur 60 mg daily, meto lazone 2.5 mg daily, Toprol-XL 100 mg daily, Nitrostat as needed, pravastatin 40 mg daily, ranolazine 500 mg twice daily, Entresto 2426 milligrams one twice daily Aldactone 25 mg daily. Echocardiogram 03/10/2022: Revealed EF of 25-30%. Grade 3 diastolic dysfunction. Mild concentric left ventricular hypertrophy. Moderate mitral regurgitation. Moderate tricuspid regurgitation. PAS P 41 mmHg. REVIEW OF SYSTEMS At the time of my exam: CONSTITUTIONAL: Denies fever or chills. CARDIOVASCULAR: Denies chest pain, reports mild shortness of breath, + orthopnea, no PND or palpitations. RESPIRATORY: Denies cough. GASTROINTESTINAL: Denies abdominal pain, diarrhea, constipation, nausea or vomiting. MUSCULOSKELETAL: Denies myalgias. No LE edema NEUROLOGIC: Denies numbness, tingling, headacbe or weakness. ENDOCRINE: Denies fatigue, no weight change, polydipsia or polyurina. HEMATOLOGIC: Denies history of anemia or bleeding. PHYSICAL EXAMINATION Blood pressure 106/66 heart rate 88 afebrile and pulse ox 96% on room air. CONSTITUTIONAL: No apparent distress. HEENT: Head is normocephalic. Pupils are equal, round. Sclerae anicteric. Mucous membranes of the mouth are moist. No JVD. No carotid bruit. CHEST EXAMINATION: Bilateral crackles. No chest wall tenderness is noted on palpation or with deep breathing. HEART EXAMINATION: Regular rate and rhythm. S1, S2 heard. Systolic murmur. ABDOMEN: Soft, nontender. Positive bowel sounds. EXTREMITIES: 2+ peripheral pulses, no bilateral lower extremity edema. NEUROLOGIC EXAMINATION: Patient is awake, alert and oriented x3. ASSESSMENT Orthostatic hypotension Acute kidney injury Chronic systolic heart failure Coronary artery disease s/p bypass grafting and PCI of the MACK-LAD Ischemic cardiomyopathy s/p AICD Hypertension Dyslipidemia Diabetes mellitus Obesity, BMI 32 PLAN Continue amiodarone 100 mg daily, aspirin 81 mg daily, Plavix 75 mg daily Discontinue Imdur completely Resume Zaroxolyn starting tomorrow every other day Hold Entresto for today as well as Farxiga, Aldactone and Lasix Change Toprol-XL 100 mg to noon dosing Obtain orthostatic vital signs If angina needs to be treated, plan to increase Ranexa versus adding Imdur back on. No need to repeat echocardiogram as one was done in February in the office. Further recommendations to follow based on clinical course. Thank you kindly for this consultation. Nurse Practitioner note has been reviewed, I agree with a documented findings and plan of care. Patient was seen and examined. Past Medical History Past Medical History: Coronary Artery Disease (CAD), Cancer, Diabetes Mellitus, Eye Disorder, GERD/Reflux, Hyperlipidemia, Hypertension, Myocardial Infarction ([place]), Osteoarthritis (OA), Pneumonia, Prostate Disorder, Thyroid Disorder Additional Past Medical History / Comment(s): IDDM type II, neuropathy bilateral legs/feet, R charcot foot, [place] per EKG, prostate cancer with prostatectomy/then PSA started to climb so he then recieved radiation treatments, hiatal hernis, diverticuliltis with bowel resection, frequent headaches/migraines, arthritis bilateral hands, occasional back pain, hypothyroid, starting of bilateral cataracts. Last Myocardial Infarction Date:: unkn History of Any Multi-Drug Resistant Organisms: None Reported Past Surgical History: Bowel Resection, Coronary Bypass/CABG, Heart Catheterization With Stent, Orthopedic Surgery, Pacemaker, Prostate Surgery Additional Past Surgical History / Comment(s): 2003 CABG 3 vessel, PCI with stents in 2008, pacemaker in 2017, prostatectomy, EGD, colonoscopy, bowel resection, R foot bone removal. Past Anesthesia/Blood Transfusion Reactions: No Reported Reaction Date of Last Stent Placement:: 2008 Type of Cardiac Device: Permanent Pacemaker Device Placement Date:: 2017 Past Psychological History: No Psychological Hx Reported Smoking Status: Never smoker Past Alcohol Use History: None Reported Past Drug Use History: None Reported - Past Family History Father Family Medical History: Cancer Additional Family Medical History / Comment(s): Father of prostate cancer. Mother Family Medical History: Diabetes Mellitus Additional Family Medical History / Comment(s): Mother had heart problems. Medications and Allergies Home Medications Medication Instructions Recorded Confirmed Type Aspirin 81 mg PO DAILY 04/28/20 08/01/22 History Clopidogrel Bisulfate [Plavix] 75 mg PO DAILY 04/28/20 08/01/22 History Levothyroxine Sodium [Synthroid] 50 mcg PO DAILY 04/28/20 08/01/22 History Pravastatin Sodium [Pravachol] 40 mg PO DAILY 04/28/20 08/01/22 History Ranolazine [Ranolazine ER] 500 mg PO BID 04/28/20 08/01/22 History Zolpidem [Ambien] 5 mg PO HS PRN #30 tab 05/01/20 08/01/22 Rx Isosorbide Mononitrate ER [Imdur] 60 mg PO DAILY 03/02/21 08/01/22 History Metoprolol Succinate (ER) [Toprol 100 mg PO DAILY 03/02/21 08/01/22 History XL] Nitroglycerin Sl Tabs [Nitrostat] 0.4 mg SUBLINGUAL Q5M PRN 03/08/21 08/01/22 History Amiodarone [Cordarone] 100 mg PO DAILY 07/25/22 08/01/22 History Glimepiride [Amaryl] 1 mg PO AC-BRKFST 07/25/22 08/01/22 History Insulin Aspart [NovoLOG Flexpen] 15 - 26 units SQ AC-TID 07/25/22 08/01/22 History Insulin Glargine,Hum.rec.anlog 40 units SQ HS 07/25/22 08/01/22 History [Lantus Solostar Pen] L.acidoph,Paracasei, B.lactis 1 cap PO DAILY 07/25/22 08/01/22 History [Probiotic] metFORMIN HCL ER [Glucophage XR] 1,000 mg PO BID 07/25/22 08/01/22 History Acetaminophen Tab [Tylenol] 650 mg PO Q6HR PRN tab 07/28/22 08/01/22 Rx Dapagliflozin Propanediol [Farxiga] 10 mg PO DAILY #30 tab 07/28/22 08/01/22 Rx Furosemide [Lasix] 40 mg PO BID 30 Days #60 tab 07/28/22 08/01/22 Rx Spironolactone [Aldactone] 25 mg PO DAILY #30 tab 07/28/22 08/01/22 Rx metOLazone [Zaroxolyn] 2.5 mg PO DAILY #30 tab 07/28/22 08/01/22 Rx Sacubitril/Valsartan [Entresto 24 1 tab PO BID 08/01/22 08/01/22 History mg-26 mg Tablet] Allergies Allergy/AdvReac Type Severity Reaction Status Date / Time exenatide [From Byetta] Allergy Rash/Hives Verified 08/01/22 12:56 Iodinated Contrast Media Allergy Unknown Verified 08/01/22 12:56 latex Allergy Rash/Hives Verified 08/01/22 12:56 liraglutide [From Victoza] Allergy Rash/Hives Verified 08/01/22 12:56 Physical Exam Vitals: Vital Signs Temp Pulse Pulse Resp BP BP BP 08/02/22 04:00 97.7 F 80 18 99/65 08/01/22 23:18 77 18 98/65 91/53 08/01/22 19:39 97.7 F 75 18 104/66 90/54 08/01/22 17:37 97.5 F L 78 18 08/01/22 16:21 78 18 87/57 08/01/22 15:28 77 18 80/53 08/01/22 13:29 78 18 84/56 08/01/22 12:52 79 18 85/54 08/01/22 11:41 76 16 87/57 08/01/22 11:09 76 18 74/46 08/01/22 09:37 97.5 F L 97 16 93/66 Pulse Ox 08/02/22 04:00 98 08/01/22 23:18 97 08/01/22 19:39 96 08/01/22 17:37 99 08/01/22 16:21 97 08/01/22 15:28 99 08/01/22 13:29 98 08/01/22 12:52 94 L 08/01/22 11:41 94 L 08/01/22 11:09 97 08/01/22 09:37 100 Intake and Output 08/01/22 08/02/22 08/02/22 22:59 06:59 14:59 Intake Total 240 118 Output Total 350 1150 725 Balance -110 -8087 -696 Intake: Oral 240 118 Output: Urine 350 1150 725 Other: Voiding Method Urinal Urinal # Bowel Movements 1 Weight 91.172 kg Results 08/01/22 10:27 08/01/22 10:27 Cardiac Enzymes 08/01/22 08/01/22 Range/Units 10:27 10:27 AST 23 (17-59) U/L Troponin I 0.040 H* (0.000-0.034) ng/mL CBC 08/01/22 Range/Units 10:27 WBC 11.2 H (3.8-10.6) k/uL RBC 5.38 (4.30-5.90) m/uL Hgb 14.9 D (13.0-17.5) gm/dL Hct 46.2 (39.0-53.0) % Plt Count 298 (150-450) k/uL Comprehensive Metabolic Panel 08/01/22 Range/Units 10:27 Sodium 133 L (137-145) mmol/L Potassium 4.2 (3.5-5.1) mmol/L Chloride 91 L (98-107) mmol/L Carbon Dioxide 26 (22-30) mmol/L BUN 50 H (9-20) mg/dL Creatinine 1.78 H (0.66-1.25) mg/dL Glucose 278 H (74-99) mg/dL Calcium 10.2 (8.4-10.2) mg/dL AST 23 (17-59) U/L ALT 19 (4-49) U/L Alkaline Phosphatase 83 (38-126) U/L Total Protein 8.5 H (6.3-8.2) g/dL Albumin 4.7 (3.5-5.0) g/dL Current Medications Generic Name Dose Route Start Last Admin Trade Name Freq PRN Reason Stop Dose Admin Acetaminophen 650 mg 08/01/22 14:31 Acetaminophen Tab 325 Mg Tab PO Q6HR PRN Mild Pain or Fever > 100.5 Acetaminophen 650 mg 08/01/22 17:39 Acetaminophen Tab 325 Mg Tab PO Q6HR PRN Fever and/ or Pain Amiodarone HCl 100 mg 08/02/22 09:00 Amiodarone 100 Mg Tab PO DAILY [facility] Aspirin 81 mg 08/02/22 09:00 Aspirin 81 Mg PO DAILY [facility] Clopidogrel Bisulfate 75 mg 08/02/22 09:00 Clopidogrel 75 Mg Tab PO DAILY [facility] Dapagliflozin 10 mg 08/02/22 09:00 Dapagliflozin Propanediol 10 Mg Tablet PO DAILY [facility] Dextrose/Water 25 ml 08/01/22 17:11 Dextrose 50% Syringe 50 Ml IVP PER PROTOCOL PRN Hypoglycemia Protocol Dextrose/Water 50 ml 08/01/22 17:11 Dextrose 50% Syringe 50 Ml IVP PER PROTOCOL PRN Hypoglycemia Protocol Furosemide 40 mg 08/01/22 21:00 08/01/22 20:54 Furosemide 40 Mg Tab PO 40 mg BID [facility] Administration Insulin Aspart 0 unit 08/01/22 17:30 08/02/22 06:10 Insulin Aspart (Novolog) 100 Unit/Ml Vial SQ Not Given ACHS [facility] Protocol Insulin Detemir 40 unit 08/02/22 00:08 Insulin Detemir (Levemir) 100 Unit/Ml Syr SQ HS [facility] Isosorbide Mononitrate 60 mg 08/02/22 09:00 Isosorbide Mononitrate Er 60 Mg Tab.Er.24h PO DAILY [facility] Lactobacillus Acidoph/Bulgaricus 1 each 08/02/22 09:00 Lactobacillus Acidoph & Bulgar 1 Each Packet PO DAILY [facility] Levothyroxine Sodium 50 mcg 08/02/22 09:00 Levothyroxine 50 Mcg Tab PO DAILY [facility] Metolazone 2.5 mg 08/01/22 17:45 08/01/22 18:24 Metolazone 2.5 Mg Tab PO 2.5 mg DAILY [facility] Administration Metoprolol Succinate 100 mg 08/02/22 09:00 Metoprolol Succinate (Er) 100 Mg Tab.Er.24h PO DAILY [facility] Naloxone HCl 0.2 mg 08/01/22 14:31 Naloxone 0.4 Mg/Ml 1 Ml Vial IV Q2M PRN Opioid Reversal Nitroglycerin 0.4 mg 08/01/22 17:39 Nitroglycerin Sl Tabs 0.4 Mg Tab SUBLINGUAL Q5M PRN Chest Pain Pravastatin Sodium 40 mg 08/02/22 09:00 Pravastatin Sodium 40 Mg Tab PO DAILY NILA Ranolazine 500 mg 08/01/22 21:00 08/01/22 20:54 Ranolazine 500 Mg Tab.Er.12h PO 500 mg BID [facility] Administration Sacubitril/Valsartan 1 each 08/01/22 21:00 08/01/22 20:58 Sacubitril/Valsartan 24 Mg-26 Mg Tablet PO Not Given BID [facility] Spironolactone 25 mg 08/02/22 09:00 Spironolactone 25 Mg Tab PO DAILY [facility] Zolpidem Tartrate 5 mg 08/01/22 17:39 Zolpidem 5 Mg Tab PO HS PRN Insomnia Intake and Output 08/01/22 08/02/22 08/02/22 22:59 06:59 14:59 Intake Total 240 118 Output Total 350 1150 725 Balance -110 -1150 -607 Intake: Oral 240 118 Output: Urine 350 1150 725 Other: Voiding Method Urinal Urinal # Bowel Movements 1 Weight 91.172 kg 08/01/22 10:27 08/01/22 10:27
[2022-08-02 16:30] LABS: Glucose,Whole Blood 246 mg/dL (70-110)
[2022-08-02 20:14] LABS: Glucose,Whole Blood 211 mg/dL (70-110)
[2022-08-02] MEDS: INSULIN DETEMIR (LEVEMIR) 100 UNIT/ML SYR SQ SCH (20:22)
[2022-08-03 06:14] LABS: Glucose,Whole Blood 202 mg/dL (70-110)
[2022-08-03] MEDS: INSULIN ASPART (NovoLOG) 100 UNIT/ML VIAL SQ SCH ×4 (06:19→20:42)
--- NOTE | 2022-08-03 08:34 | P.PN ---
Subjective Progress Note Date: 08/03/22 Principal diagnosis: Hypertension with CHF This is a continue pressure on a 67-year-old white male with known history of diabetes congestive heart failure who was admitted secondary to severe hypotension and presyncope. The patient's medications have been titrated and blood pressure is not nominal. He does still feel significant fatigue however no voiding difficulties. No overt chest pressure. Objective - Vital Signs Vital signs: Vital Signs Temp 98 F 08/03/22 04:51 Pulse 82 08/03/22 04:51 Resp 16 08/03/22 04:51 BP 119/65 08/03/22 04:51 Pulse Ox 97 08/03/22 04:51 FiO2 Intake & Output 08/02/22 08/03/22 08/03/22 18:59 06:59 18:59 Intake Total 354 118 Output Total 725 Balance -371 118 Intake: Oral 354 118 Output: Urine 725 Other: Voiding Method Urinal Urinal # Voids 1 - Constitutional General appearance: Present: average body habitus, cooperative - EENT Eyes: Absent: abnormal pupil - Neck Neck: Absent: lymphadenopathy - Respiratory Respiratory: bilateral: diminished - Cardiovascular Rhythm: regular Heart sounds: normal: S1, S2 Abnormal Heart Sounds: Absent: S3 Gallop - Gastrointestinal General gastrointestinal: Present: soft. Absent: tenderness - Musculoskeletal Musculoskeletal Comment(s): Toe amputation noted Musculoskeletal: Present: generalized weakness - Psychiatric Psychiatric: Present: A&O x's 3 - Labs CBC & Chem 7: 08/01/22 10:27 08/01/22 10:27 Labs: Abnormal Lab Results - Last 24 Hours (Table) 08/02/22 08/02/22 08/02/22 Range/Units 11:43 16:28 20:13 POC Glucose (mg/dL) 200 H 246 H 211 H (70-110) mg/dL 08/03/22 Range/Units 06:10 POC Glucose (mg/dL) 202 H (70-110) mg/dL Assessment and Plan (1) Hypotension Current Visit: Yes Status: Acute Code(s): I95.9 - HYPOTENSION, UNSPECIFIED SNOMED Code(s): 63216254 (2) CAD (coronary artery disease) Current Visit: No Status: Acute Code(s): I25.10 - ATHSCL HEART DISEASE OF [place] CORONARY ARTERY W/O ANG PCTRS SNOMED Code(s): 60201440 (3) Congestive heart failure Current Visit: No Status: Acute Code(s): I50.9 - HEART FAILURE, UNSPECIFIED SNOMED Code(s): 08936359 (4) Dehydration Current Visit: No Status: Acute Code(s): E86.0 - DEHYDRATION SNOMED Code(s): 48358117 (5) Diabetes Current Visit: No Status: Acute Code(s): E11.9 - TYPE 2 DIABETES MELLITUS WITHOUT COMPLICATIONS SNOMED Code(s): 73268994 (6) GERD (gastroesophageal reflux disease) Current Visit: No Status: Acute Code(s): K21.9 - GASTRO-ESOPHAGEAL REFLUX DISEASE WITHOUT ESOPHAGITIS SNOMED Code(s): 008801203 (7) Hypertension Current Visit: No Status: Acute Code(s): I10 - ESSENTIAL (PRIMARY) HYPERTENSION SNOMED Code(s): 62552896 Plan: Medications have been titrated by cardiology. Appreciate input. Check CMP in a.m. Anticipate discharge in next 24 hours if blood pressure stabilizes with current regimen of treatment. Prognosis is guarded secondary to his multiple comorbidities.
[2022-08-03] MEDS: LACTOBACILLUS ACIDOPH & BULGAR 1 EACH PACKET PO SCH (08:47)
[2022-08-03] MEDS: AMIODARONE 100 MG TAB PO SCH (08:47)
[2022-08-03] MEDS: ASPIRIN 81 MG PO SCH (08:47)
[2022-08-03] MEDS: PRAVASTATIN SODIUM 40 MG TAB PO SCH (08:47)
[2022-08-03] MEDS: LEVOTHYROXINE 50 MCG TAB PO SCH (08:47)
[2022-08-03] MEDS: RANOLAZINE 500 MG TAB.ER.12H PO SCH ×2 (08:47→20:42)
[2022-08-03] MEDS: CLOPIDOGREL 75 MG TAB PO SCH (08:47)
[2022-08-03 08:54] LABS: Albumin 4.8 g/dL (3.5-5.0); Calcium 10.4 mg/dL (8.4-10.2); Potassium 4.3 mmol/L (3.5-5.1); Total Bilirubin 0.8 mg/dL (0.2-1.3); Total Protein 8.7 g/dL (6.3-8.2)
[2022-08-03] MEDS ORDERED: metOLazone 2.5 MG TAB PO SCH (09:00)
[2022-08-03] MEDS ORDERED: FUROSEMIDE 40 MG TAB PO SCH (09:15)
[2022-08-03] MEDS: SPIRONOLACTONE 25 MG TAB PO SCH (10:23)
[2022-08-03] MEDS: SACUBITRIL/VALSARTAN 24 MG-26 MG TABLET PO SCH ×2 (10:23→20:42)
--- NOTE | 2022-08-03 11:43 | P.PN ---
Subjective Progress Note Date: 08/03/22 HISTORY OF PRESENTING ILLNESS This is a 67-year-old male patient of Dr. Villar with past medical history si gnificant for coronary artery disease status post bypass grafting MACK-LAD, SVG- OM and PDA 2007 and subsequent PCI of the MACK-LAD anastomosis 2008, ischemic cardiomyopathy status post AICD ([facility]), diabetes mellitus, hypertension and dyslipidemia. We have been asked to see in consultation for hypotension. Patient had recent hospitalization earlier this month and was treated for acute on chronic systolic heart failure. Patient was apparently having lab work done and started feeling dizzy saw white spots and his blood pressure was quite low. By the time he was in the emergency center his blood pressure was 74/46. He denies having any chest pain and no shortness of breath. Orthostatics are positive. EKG reveals sinus mechanism with ventricular paced rhythm. WBC 11.2, hemoglobin 14.9, platelet count 298. Sodium 133, potassium 4.2, chloride 91, BUN 50 creatinine 1.78. But sugar 278. Troponin 0.040. Current cardiac medications include amiodarone 100 mg daily, aspirin 81 mg daily , Plavix 75 mg daily, Lasix 40 mg twice daily, imdur 60 mg daily, metolazone 2.5 mg daily, Toprol-XL 100 mg daily, Nitrostat as needed, pravastatin 40 mg daily, ranolazine 500 mg twice daily, Entresto 2426 milligrams one twice daily Aldactone 25 mg daily. Echocardiogram 03/10/2022: Revealed EF of 25-30%. Grade 3 diastolic dysfunction. Mild concentric left ventricular hypertrophy. Moderate mitral regurgitation. Moderate tricuspid regurgitation. PAS P 41 mmHg. 08/03 Patient is seen today in follow-up. Orthostatics done this morning at midnight are negative. Blood pressure now 119/65, heart rate 82, pulse ox 97% on room air. Additional medication changes will be made today in order to treat underlying CHF and prevent hypotension. PHYSICAL EXAMINATION CONSTITUTIONAL: No apparent distress. HEENT: Head is normocephalic. Pupils are equal, round. Sclerae anicteric. Mucous membranes of the mouth are moist. No JVD. No carotid bruit. CHEST EXAMINATION: Bilateral crackles. No chest wall tenderness is noted on palpation or with deep breathing. HEART EXAMINATION: Regular rate and rhythm. S1, S2 heard. Systolic murmur. ABDOMEN: Soft, nontender. Positive bowel sounds. EXTREMITIES: 2+ peripheral pulses, no bilateral lower extremity edema. NEUROLOGIC EXAMINATION: Patient is awake, alert and oriented x3. ASSESSMENT Orthostatic hypotension Acute kidney injury Chronic systolic heart failure Coronary artery disease s/p bypass grafting and PCI of the MACK-LAD Ischemic cardiomyopathy s/p AICD Hypertension Dyslipidemia Diabetes mellitus Obesity, BMI 32 PLAN Continue amiodarone 100 mg daily, aspirin 81 mg daily, Plavix 75 mg daily Discontinue Imdur and Zaroxolyn completely Resume Entresto and resume Lasix at a lower frequency 40 mg daily at noon Resume Farxiga starting tomorrow and Aldactone today Continue Toprol-XL 100 mg to noon dosing If angina needs to be treated, plan to increase Ranexa versus adding Imdur back on. No need to repeat echocardiogram as one was done in February in the office. Monitor patient overnight and plan for discharge home tomorrow if patient re steven stable. Nurse Practitioner note has been reviewed, I agree with a documented findings an d plan of care. Patient was seen and examined. Objective - Vital Signs Vital signs: Vital Signs Temp 98 F 08/03/22 04:51 Pulse 82 08/03/22 04:51 Resp 16 08/03/22 04:51 BP 119/65 08/03/22 04:51 Pulse Ox 97 08/03/22 04:51 FiO2 Intake & Output 08/02/22 08/03/22 08/03/22 18:59 06:59 18:59 Intake Total 354 118 Output Total 725 Balance -371 118 Intake: Oral 354 118 Output: Urine 725 Other: Voiding Method Urinal Urinal # Voids 1 - Labs CBC & Chem 7: 08/01/22 10:27 08/03/22 07:32 Labs: Abnormal Lab Results - Last 24 Hours (Table) 08/02/22 08/02/22 08/02/22 Range/Units 11:43 16:28 20:13 POC Glucose (mg/dL) 200 H 246 H 211 H (70-110) mg/dL 08/03/22 Range/Units 06:10 POC Glucose (mg/dL) 202 H (70-110) mg/dL
[2022-08-03 11:47] LABS: Glucose,Whole Blood 231 mg/dL (70-110)
[2022-08-03] MEDS: METOPROLOL SUCCINATE (ER) 100 MG TAB.ER.24H PO SCH (11:50)
[2022-08-03] MEDS: FUROSEMIDE 40 MG TAB PO SCH (11:50)
[2022-08-03 16:41] LABS: Glucose,Whole Blood 254 mg/dL (70-110)
[2022-08-03 19:56] LABS: Glucose,Whole Blood 382 mg/dL (70-110)
[2022-08-03] MEDS: INSULIN DETEMIR (LEVEMIR) 100 UNIT/ML SYR SQ SCH (20:42)
[2022-08-04 05:55] LABS: Glucose,Whole Blood 193 mg/dL (70-110)
[2022-08-04] MEDS: INSULIN ASPART (NovoLOG) 100 UNIT/ML VIAL SQ SCH ×4 (06:10→21:22)
--- NOTE | 2022-08-04 08:26 | P.PN ---
Subjective Progress Note Date: 08/04/22 Principal diagnosis: Lightheadedness Patient originally admitted for some lightheadedness and hypotension. He was recently admitted and was coming in for lab work when he was very lightheaded and went to the ER. Cardiology has been consulted and is working on medications. Lasix was restarted yesterday at 40 mg once daily. Entresto was also resumed. Patient's blood pressures on the low side today. He denies any edema. He has been getting up and moving around in the room, denies any further lightheadedness. Objective - Vital Signs Vital signs: Vital Signs Temp 97.9 F 08/03/22 20:00 Pulse 72 08/04/22 03:54 Resp 16 08/04/22 03:54 BP 92/61 08/04/22 03:54 Pulse Ox 96 08/04/22 03:54 FiO2 Intake & Output 08/03/22 08/04/22 08/04/22 18:59 06:59 18:59 Intake Total 776 540 Balance 776 540 Intake: Oral 776 540 Other: Voiding Method Urinal Urinal # Voids 1 1 - Constitutional General appearance: Present: cooperative, no acute distress - EENT Eyes: Present: EOMI, PERRLA - Neck Neck: Present: normal ROM. Absent: lymphadenopathy, rigidity - Respiratory Respiratory: bilateral: CTA - Cardiovascular Rhythm: regular Heart sounds: normal: S1, S2 - Gastrointestinal General gastrointestinal: Present: soft. Absent: tenderness - Integumentary Integumentary: Present: normal, normal turgor - Psychiatric Psychiatric: Present: A&O x's 3, appropriate affect, intact judgment & insight - Labs CBC & Chem 7: 08/01/22 10:27 08/03/22 07:32 Labs: Abnormal Lab Results - Last 24 Hours (Table) 08/03/22 08/03/22 08/03/22 Range/Units 07:32 11:45 16:39 Sodium 135 L (137-145) mmol/L Chloride 95 L (98-107) mmol/L BUN 32 H (9-20) mg/dL Creatinine 1.31 H (0.66-1.25) mg/dL Glucose 243 H (74-99) mg/dL POC Glucose (mg/dL) 231 H 254 H (70-110) mg/dL Calcium 10.4 H (8.4-10.2) mg/dL Total Protein 8.7 H (6.3-8.2) g/dL 08/03/22 08/04/22 Range/Units 19:54 05:53 Sodium (137-145) mmol/L Chloride (98-107) mmol/L BUN (9-20) mg/dL Creatinine (0.66-1.25) mg/dL Glucose (74-99) mg/dL POC Glucose (mg/dL) 382 H 193 H (70-110) mg/dL Calcium (8.4-10.2) mg/dL Total Protein (6.3-8.2) g/dL Assessment and Plan (1) Hypotension Current Visit: Yes Status: Acute Code(s): I95.9 - HYPOTENSION, UNSPECIFIED SNOMED Code(s): 56519387 (2) Congestive heart failure Current Visit: No Status: Acute Code(s): I50.9 - HEART FAILURE, UNSPECIFIED SNOMED Code(s): 00871630 (3) Diabetes Current Visit: No Status: Acute Code(s): E11.9 - TYPE 2 DIABETES MELLITUS WITHOUT COMPLICATIONS SNOMED Code(s): 57484350 (4) GERD (gastroesophageal reflux disease) Current Visit: No Status: Acute Code(s): K21.9 - GASTRO-ESOPHAGEAL REFLUX DISEASE WITHOUT ESOPHAGITIS SNOMED Code(s): 658985914 (5) Thyroid disorder Current Visit: No Status: Acute Code(s): E07.9 - DISORDER OF THYROID, UNSPECIFIED SNOMED Code(s): 10922010 Plan: Check CMP in the morning. Check patient's weight daily. Follow recommendations from cardiology, appreciate their input. Patient seen and evaluated by nurse practitioner, physician in agreement with plan
[2022-08-04] MEDS: CLOPIDOGREL 75 MG TAB PO SCH (09:15)
[2022-08-04] MEDS: SPIRONOLACTONE 25 MG TAB PO SCH (09:15)
[2022-08-04] MEDS: LEVOTHYROXINE 50 MCG TAB PO SCH (09:15)
[2022-08-04] MEDS: RANOLAZINE 500 MG TAB.ER.12H PO SCH ×2 (09:15→21:23)
[2022-08-04] MEDS: LACTOBACILLUS ACIDOPH & BULGAR 1 EACH PACKET PO SCH (09:15)
[2022-08-04] MEDS: ASPIRIN 81 MG PO SCH (09:15)
[2022-08-04] MEDS: PRAVASTATIN SODIUM 40 MG TAB PO SCH (09:15)
[2022-08-04] MEDS: AMIODARONE 100 MG TAB PO SCH (09:15)
[2022-08-04] MEDS: DAPAGLIFLOZIN PROPANEDIOL 10 MG TABLET PO SCH (09:15)
[2022-08-04] MEDS: SACUBITRIL/VALSARTAN 24 MG-26 MG TABLET PO SCH ×2 (09:15→21:23)
[2022-08-04 10:52] LABS: HCT 47.4 % (39.0-53.0); HGB 15.8 gm/dL (13.0-17.5); Hypochromasia Slight; MCH 29.6 pg (25.0-35.0); MCHC 33.3 g/dL (31.0-37.0); MCV 88.9 fL (80.0-100.0); Mean Platelet Volume 7.9; Platelet Count 228 k/uL (150-450); RBC 5.33 m/uL (4.30-5.90); RDW 14.5 % (11.5-15.5); WBC 8.3 k/uL (3.8-10.6)
[2022-08-04 11:11] LABS: Albumin 4.7 g/dL (3.5-5.0); Calcium 10.2 mg/dL (8.4-10.2); Total Protein 8.5 g/dL (6.3-8.2)
[2022-08-04 11:29] LABS: Glucose,Whole Blood 285 mg/dL (70-110)
[2022-08-04 11:49] LABS: Potassium 4.8 mmol/L (3.5-5.1)
--- NOTE | 2022-08-04 12:22 | P.PN ---
Subjective Progress Note Date: 08/04/22 HISTORY OF PRESENTING ILLNESS This is a 67-year-old male patient of Dr. Villar with past medical history si gnificant for coronary artery disease status post bypass grafting MACK-LAD, SVG- OM and PDA 2007 and subsequent PCI of the MACK-LAD anastomosis 2008, ischemic cardiomyopathy status post AICD ([facility]), diabetes mellitus, hypertension and dyslipidemia. We have been asked to see in consultation for hypotension. Patient had recent hospitalization earlier this month and was treated for acute on chronic systolic heart failure. Patient was apparently having lab work done and started feeling dizzy saw white spots and his blood pressure was quite low. By the time he was in the emergency center his blood pressure was 74/46. He denies having any chest pain and no shortness of breath. Orthostatics are positive. EKG reveals sinus mechanism with ventricular paced rhythm. WBC 11.2, hemoglobin 14.9, platelet count 298. Sodium 133, potassium 4.2, chloride 91, BUN 50 creatinine 1.78. But sugar 278. Troponin 0.040. Current cardiac medications include amiodarone 100 mg daily, aspirin 81 mg daily , Plavix 75 mg daily, Lasix 40 mg twice daily, imdur 60 mg daily, metolazone 2.5 mg daily, Toprol-XL 100 mg daily, Nitrostat as needed, pravastatin 40 mg daily, ranolazine 500 mg twice daily, Entresto 2426 milligrams one twice daily Aldactone 25 mg daily. Echocardiogram 03/10/2022: Revealed EF of 25-30%. Grade 3 diastolic dysfunction. Mild concentric left ventricular hypertrophy. Moderate mitral regurgitation. Moderate tricuspid regurgitation. PAS P 41 mmHg. 08/03 Patient is seen today in follow-up. Orthostatics done this morning at midnight are negative. Blood pressure now 119/65, heart rate 82, pulse ox 97% on room air. Additional medication changes will be made today in order to treat underlying CHF and prevent hypotension. 08/04 Patient is seen today in follow-up. Blood pressure is low today 92/61 after starting Entresto back yesterday. Patient to also start Farxiga today. Patient to be up and ambulating and repeat orthostatics to be obtained today. Potassium 4.8, BUN 44 creatinine 1.34. PHYSICAL EXAMINATION CONSTITUTIONAL: No apparent distress. HEENT: Head is normocephalic. Pupils are equal, round. Sclerae anicteric. Mucous membranes of the mouth are moist. No JVD. No carotid bruit. CHEST EXAMINATION: Bilateral crackles. No chest wall tenderness is noted on palpation or with deep breathing. HEART EXAMINATION: Regular rate and rhythm. S1, S2 heard. Systolic murmur. ABDOMEN: Soft, nontender. Positive bowel sounds. EXTREMITIES: 2+ peripheral pulses, no bilateral lower extremity edema. NEUROLOGIC EXAMINATION: Patient is awake, alert and oriented x3. ASSESSMENT Orthostatic hypotension Acute kidney injury Chronic systolic heart failure Coronary artery disease s/p bypass grafting and PCI of the MACK-LAD Ischemic cardiomyopathy s/p AICD Hypertension Dyslipidemia Diabetes mellitus Obesity, BMI 32 PLAN Continue amiodarone 100 mg daily, aspirin 81 mg daily, Plavix 75 mg daily Discontinue Imdur and Zaroxolyn completely Continue Entresto and Lasix at a lower frequency 40 mg daily at noon Continue Farxiga and Aldactone Continue Toprol-XL 100 mg to noon dosing Ambulate patient and obtain orthostatic vital signs to determine if patient can tolerate systolic blood pressure in the 90s. If angina needs to be treated, plan to increase Ranexa versus adding Imdur back on. No need to repeat echocardiogram as one was done in February in the office. Monitor patient overnight and plan for discharge home tomorrow if patient remains stable. Nurse Practitioner note has been reviewed, I agree with a documented findings and plan of care. Patient was seen and examined. Objective - Vital Signs Vital signs: Vital Signs Temp 97.9 F 08/03/22 20:00 Pulse 72 08/04/22 03:54 Resp 16 08/04/22 03:54 BP 92/61 08/04/22 03:54 Pulse Ox 96 08/04/22 03:54 FiO2 Intake & Output 08/03/22 08/04/22 08/04/22 18:59 06:59 18:59 Intake Total 776 540 Balance 776 540 Intake: Oral 776 540 Other: Voiding Method Urinal Urinal # Voids 1 1 - Labs CBC & Chem 7: 08/04/22 10:23 08/04/22 10:23 Labs: Abnormal Lab Results - Last 24 Hours (Table) 08/03/22 08/03/22 08/03/22 Range/Units 07:32 11:45 16:39 Sodium 135 L (137-145) mmol/L Chloride 95 L (98-107) mmol/L BUN 32 H (9-20) mg/dL Creatinine 1.31 H (0.66-1.25) mg/dL Glucose 243 H (74-99) mg/dL POC Glucose (mg/dL) 231 H 254 H (70-110) mg/dL Calcium 10.4 H (8.4-10.2) mg/dL Total Protein 8.7 H (6.3-8.2) g/dL 08/03/22 08/04/22 Range/Units 19:54 05:53 Sodium (137-145) mmol/L Chloride (98-107) mmol/L BUN (9-20) mg/dL Creatinine (0.66-1.25) mg/dL Glucose (74-99) mg/dL POC Glucose (mg/dL) 382 H 193 H (70-110) mg/dL Calcium (8.4-10.2) mg/dL Total Protein (6.3-8.2) g/dL
[2022-08-04] MEDS: FUROSEMIDE 40 MG TAB PO SCH (14:38)
[2022-08-04] MEDS: METOPROLOL SUCCINATE (ER) 100 MG TAB.ER.24H PO SCH (14:41)
[2022-08-04 16:38] LABS: Glucose,Whole Blood 301 mg/dL (70-110)
[2022-08-04 20:02] LABS: Glucose,Whole Blood 293 mg/dL (70-110)
[2022-08-04] MEDS: INSULIN DETEMIR (LEVEMIR) 100 UNIT/ML SYR SQ SCH (21:23)
[2022-08-05 06:18] LABS: Glucose,Whole Blood 278 mg/dL (70-110)
[2022-08-05] MEDS: INSULIN ASPART (NovoLOG) 100 UNIT/ML VIAL SQ SCH ×2 (06:45→11:48)
[2022-08-05] MEDS: SACUBITRIL/VALSARTAN 24 MG-26 MG TABLET PO SCH (08:11)
[2022-08-05] MEDS: CLOPIDOGREL 75 MG TAB PO SCH (08:11)
[2022-08-05] MEDS: DAPAGLIFLOZIN PROPANEDIOL 10 MG TABLET PO SCH (08:11)
[2022-08-05] MEDS: RANOLAZINE 500 MG TAB.ER.12H PO SCH (08:11)
[2022-08-05] MEDS: PRAVASTATIN SODIUM 40 MG TAB PO SCH (08:11)
[2022-08-05] MEDS: LACTOBACILLUS ACIDOPH & BULGAR 1 EACH PACKET PO SCH (08:11)
[2022-08-05] MEDS: ASPIRIN 81 MG PO SCH (08:11)
[2022-08-05] MEDS: SPIRONOLACTONE 25 MG TAB PO SCH (08:12)
[2022-08-05] MEDS: LEVOTHYROXINE 50 MCG TAB PO SCH (08:12)
[2022-08-05] MEDS: AMIODARONE 100 MG TAB PO SCH (08:12)
--- NOTE | 2022-08-05 08:55 | P.DS ---
Providers Date of admission: 08/01/22 15:00 Attending physician: Everardo Auguste Consults: 08/01/22 14:31 Consult Physician Routine Consulting Provider: Luis Fernandez Consult Reason/Comments: hypotension following CHF exacerbation Do you want consulting provider notified?: Yes, Notify in am Primary care physician: Everardo Auguste - Discharge Diagnosis(es) (1) Hypotension Current Visit: Yes Status: Acute (2) CAD (coronary artery disease) Current Visit: No Status: Acute (3) Congestive heart failure Current Visit: No Status: Acute (4) Dehydration Current Visit: No Status: Acute (5) Diabetes Current Visit: No Status: Acute (6) GERD (gastroesophageal reflux disease) Current Visit: No Status: Acute (7) Hypertension Current Visit: No Status: Acute Hospital Course: The patient is here essentially for hypertension. Underlying history of CHF and diabetes. The patient's medication was titrated. Imdur was discontinued as was Lasix twice a day. The patient tolerated dosing although he was still hypotensive. No edema was noted. The patient will be discharged once emulating appropriately. No voiding difficulties. Follow-up me in 3 days. Patient Condition at Discharge: Stable Plan - Discharge Summary Discharge Rx Participant: Yes New Discharge Prescriptions: New Sacubitril/Valsartan [Entresto 24 mg-26 mg Tablet] 1 each PO BID tab Furosemide [Lasix] 40 mg PO 1200 #30 tab Continue Ranolazine [Ranolazine ER] 500 mg PO BID Clopidogrel Bisulfate [Plavix] 75 mg PO DAILY Aspirin 81 mg PO DAILY Pravastatin Sodium [Pravachol] 40 mg PO DAILY Levothyroxine Sodium [Synthroid] 50 mcg PO DAILY Zolpidem [Ambien] 5 mg PO HS PRN #30 tab PRN Reason: Insomnia metFORMIN HCL ER [Glucophage XR] 1,000 mg PO BID L.acidoph,Paracasei, B.lactis [Probiotic] 1 cap PO DAILY Insulin Aspart [NovoLOG Flexpen] 15 - 26 units SQ AC-TID Insulin Glargine,Hum.rec.anlog [Lantus Solostar Pen] 40 units SQ HS Glimepiride [Amaryl] 1 mg PO AC-BRKFST Dapagliflozin Propanediol [Farxiga] 10 mg PO DAILY #30 tab Acetaminophen Tab [Tylenol] 650 mg PO Q6HR PRN tab PRN Reason: Fever And/ Or Pain Metoprolol Succinate (ER) [Toprol XL] 100 mg PO DAILY Nitroglycerin Sl Tabs [Nitrostat] 0.4 mg SUBLINGUAL Q5M PRN PRN Reason: Chest Pain Amiodarone [Cordarone] 100 mg PO DAILY Spironolactone [Aldactone] 25 mg PO DAILY #30 tab Sacubitril/Valsartan [Entresto 24 mg-26 mg Tablet] 1 tab PO BID Discontinued Isosorbide Mononitrate ER [Imdur] 60 mg PO DAILY metOLazone [Zaroxolyn] 2.5 mg PO DAILY #30 tab Furosemide [Lasix] 40 mg PO BID 30 Days #60 tab Discharge Medication List Aspirin 81 mg PO DAILY 04/28/20 [History] Clopidogrel Bisulfate [Plavix] 75 mg PO DAILY 04/28/20 [History] Levothyroxine Sodium [Synthroid] 50 mcg PO DAILY 04/28/20 [History] Pravastatin Sodium [Pravachol] 40 mg PO DAILY 04/28/20 [History] Ranolazine [Ranolazine ER] 500 mg PO BID 04/28/20 [History] Zolpidem [Ambien] 5 mg PO HS PRN #30 tab 05/01/20 [Rx] Metoprolol Succinate (ER) [Toprol XL] 100 mg PO DAILY 03/02/21 [History] Nitroglycerin Sl Tabs [Nitrostat] 0.4 mg SUBLINGUAL Q5M PRN 03/08/21 [History] Amiodarone [Cordarone] 100 mg PO DAILY 07/25/22 [History] Glimepiride [Amaryl] 1 mg PO AC-BRKFST 07/25/22 [History] Insulin Aspart [NovoLOG Flexpen] 15 - 26 units SQ AC-TID 07/25/22 [History] Insulin Glargine,Hum.rec.anlog [Lantus Solostar Pen] 40 units SQ HS 07/25/22 [History] L.acidoph,Paracasei, B.lactis [Probiotic] 1 cap PO DAILY 07/25/22 [History] metFORMIN HCL ER [Glucophage XR] 1,000 mg PO BID 07/25/22 [History] Acetaminophen Tab [Tylenol] 650 mg PO Q6HR PRN tab 07/28/22 [Rx] Dapagliflozin Propanediol [Farxiga] 10 mg PO DAILY #30 tab 07/28/22 [Rx] Spironolactone [Aldactone] 25 mg PO DAILY #30 tab 07/28/22 [Rx] Sacubitril/Valsartan [Entresto 24 mg-26 mg Tablet] 1 tab PO BID 08/01/22 [History] Furosemide [Lasix] 40 mg PO 1200 #30 tab 08/05/22 [Rx] Sacubitril/Valsartan [Entresto 24 mg-26 mg Tablet] 1 each PO BID tab 08/05/22 [Rx] Follow up Appointment(s)/Referral(s): Everardo Auguste MD [Primary Care Provider] - 3 Days Discharge Disposition: HOME SELF-CARE
[2022-08-05 10:18] LABS: Albumin 4.9 g/dL (3.5-5.0); Calcium 10.6 mg/dL (8.4-10.2); Potassium 5.3 mmol/L (3.5-5.1); Total Bilirubin 0.8 mg/dL (0.2-1.3); Total Protein 8.9 g/dL (6.3-8.2)
[2022-08-05 10:24] VITALS: TEMP 98
[2022-08-05 11:47] LABS: Glucose,Whole Blood 252 mg/dL (70-110)
[2022-08-05] MEDS: FUROSEMIDE 40 MG TAB PO SCH (11:48)
[2022-08-05 11:53] VITALS: BP 107/58; PULSE 88; RESP 16
[2022-08-05] MEDS ORDERED: METOPROLOL SUCCINATE (ER) 25 MG TAB.ER.24H PO SCH (12:00)
[2022-08-05] MEDS ORDERED: AMIODARONE 100 MG TAB PO STA (12:27)
--- NOTE | 2022-08-05 13:02 | P.PN ---
Subjective Progress Note Date: 08/05/22 HISTORY OF PRESENTING ILLNESS This is a 67-year-old male patient of Dr. Villar with past medical history si gnificant for coronary artery disease status post bypass grafting MACK-LAD, SVG- OM and PDA 2007 and subsequent PCI of the MACK-LAD anastomosis 2008, ischemic cardiomyopathy status post AICD ([facility] [facility]), diabetes mellitus, hypertension and dyslipidemia. We have been asked to see in consultation for hypotension. Patient had recent hospitalization earlier this month and was treated for acute on chronic systolic heart failure. Patient was apparently having lab work done and started feeling dizzy saw white spots and his blood pressure was quite low. By the time he was in the emergency center his blood pressure was 74/46. He denies having any chest pain and no shortness of breath. Orthostatics are positive. EKG reveals sinus mechanism with ventricular paced rhythm. WBC 11.2, hemoglobin 14.9, platelet count 298. Sodium 133, potassium 4.2, chloride 91, BUN 50 creatinine 1.78. But sugar 278. Troponin 0.040. Current cardiac medications include amiodarone 100 mg daily, aspirin 81 mg daily , Plavix 75 mg daily, Lasix 40 mg twice daily, imdur 60 mg daily, metolazone 2.5 mg daily, Toprol-XL 100 mg daily, Nitrostat as needed, pravastatin 40 mg daily, ranolazine 500 mg twice daily, Entresto 2426 milligrams one twice daily Aldactone 25 mg daily. Echocardiogram 03/10/2022: Revealed EF of 25-30%. Grade 3 diastolic dysfunction. Mild concentric left ventricular hypertrophy. Moderate mitral regurgitation. Moderate tricuspid regurgitation. PAS P 41 mmHg. 08/03 Patient is seen today in follow-up. Orthostatics done this morning at midnight are negative. Blood pressure now 119/65, heart rate 82, pulse ox 97% on room air. Additional medication changes will be made today in order to treat underlying CHF and prevent hypotension. 08/04 Patient is seen today in follow-up. Blood pressure is low today 92/61 after starting Entresto back yesterday. Patient to also start Farxiga today. Patient to be up and ambulating and repeat orthostatics to be obtained today. Potassium 4.8, BUN 44 creatinine 1.34. 08/05 Patient has no new concerns. No chest pain, shortness of breath, lighthe adedness or dizziness, he does not feel any palpitations. This morning his heart rate was tachycardic but patient states at the time he was thinking about his work. His heart rate is now in the 80s and back to paced rhythm. He just received his beta paige which was not given yesterday due to hypotension. PHYSICAL EXAMINATION CONSTITUTIONAL: No apparent distress. HEENT: Head is normocephalic. Pupils are equal, round. Sclerae anicteric. Mucous membranes of the mouth are moist. No JVD. No carotid bruit. CHEST EXAMINATION: Bilateral crackles. No chest wall tenderness is noted on palpation or with deep breathing. HEART EXAMINATION: Regular rate and rhythm. S1, S2 heard. Systolic murmur. ABDOMEN: Soft, nontender. Positive bowel sounds. EXTREMITIES: 2+ peripheral pulses, no bilateral lower extremity edema. NEUROLOGIC EXAMINATION: Patient is awake, alert and oriented x3. ASSESSMENT Orthostatic hypotension Acute kidney injury Chronic systolic heart failure Coronary artery disease s/p bypass grafting and PCI of the MACK-LAD Ischemic cardiomyopathy s/p AICD Hypertension Dyslipidemia Diabetes mellitus Obesity, BMI 32 PLAN Continue amiodarone increased to 200 mg daily, aspirin 81 mg daily, Plavix 75 mg daily Discontinue Imdur and Zaroxolyn and Aldactone completely Continue Entresto and Lasix at a lower frequency 40 mg daily at noon Continue Farxiga Continue Toprol-XL 100 mg to noon dosing Patient is cleared for discharge from cardiology with the current medication changes made today. Patient to follow-up with Dr Choe in the office in one to 2 weeks. Nurse Practitioner note has been reviewed, I agree with a documented findings and plan of care. Patient was seen and examined. Objective - Vital Signs Vital signs: Vital Signs Temp 98.0 F 08/05/22 08:00 Pulse 88 08/05/22 11:53 Resp 16 08/05/22 11:53 BP 107/58 08/05/22 11:53 Pulse Ox 98 08/05/22 11:53 FiO2 Intake & Output 08/04/22 08/05/22 08/05/22 18:59 06:59 18:59 Intake Total 360 236 Balance 360 236 Weight 91.2 kg Intake: Oral 360 236 Other: Voiding Method Urinal Urinal Urinal # Voids 2 1 - Labs CBC & Chem 7: 08/04/22 10:23 08/05/22 09:21 Labs: Abnormal Lab Results - Last 24 Hours (Table) 08/04/22 08/04/22 08/05/22 Range/Units 16:36 20:00 06:16 Sodium (137-145) mmol/L Potassium (3.5-5.1) mmol/L Chloride (98-107) mmol/L Carbon Dioxide (22-30) mmol/L BUN (9-20) mg/dL Creatinine (0.66-1.25) mg/dL Glucose (74-99) mg/dL POC Glucose (mg/dL) 301 H 293 H 278 H (70-110) mg/dL Calcium (8.4-10.2) mg/dL Total Protein (6.3-8.2) g/dL 08/05/22 08/05/22 Range/Units 09:21 11:43 Sodium 135 L (137-145) mmol/L Potassium 5.3 H (3.5-5.1) mmol/L Chloride 92 L (98-107) mmol/L Carbon Dioxide 31 H (22-30) mmol/L BUN 49 H (9-20) mg/dL Creatinine 1.71 H (0.66-1.25) mg/dL Glucose 311 H (74-99) mg/dL POC Glucose (mg/dL) 252 H (70-110) mg/dL Calcium 10.6 H (8.4-10.2) mg/dL Total Protein 8.9 H (6.3-8.2) g/dL
[2022-08-06] MEDS ORDERED: AMIODARONE 200 MG TAB PO SCH (09:00)
== END 2022-08-05 14:47 | disposition home or self-care (01) | DRG 312 ==
LOC: EC 09:32 → 3SCARD 15:00
PROVIDERS: ADMIT Family Medicine; ATTEND Family Medicine
DX: I95.1 Orthostatic hypotension (principal); N17.9 Acute kidney failure, unspecified; I50.22 Chronic systolic (congestive) heart failure; E11.41 Type 2 diabetes mellitus with diabetic mononeuropathy; I11.0 Hypertensive heart disease with heart failure; E11.610 Type 2 diabetes mellitus with diabetic neuropathic arthropathy; Z79.4 Long term (current) use of insulin; Z89.429 Acquired absence of other toe(s), unspecified side; Z28.310 Unvaccinated for COVID-19; G57.93 Unspecified mononeuropathy of bilateral lower limbs; E86.0 Dehydration; E78.5 Hyperlipidemia, unspecified; I25.10 Atherosclerotic heart disease of native coronary artery without angina pectoris; I25.5 Ischemic cardiomyopathy; I08.1 Rheumatic disorders of both mitral and tricuspid valves; I25.2 Old myocardial infarction; M19.041 Primary osteoarthritis, right hand; M19.042 Primary osteoarthritis, left hand; K21.00 Gastro-esophageal reflux disease with esophagitis, without bleeding; E03.9 Hypothyroidism, unspecified; G43.909 Migraine, unspecified, not intractable, without status migrainosus; M19.90 Unspecified osteoarthritis, unspecified site; M54.9 Dorsalgia, unspecified; N42.9 Disorder of prostate, unspecified; E66.9 Obesity, unspecified; Z68.32 Body mass index [BMI] 32.0-32.9, adult; Z79.82 Long term (current) use of aspirin; Z79.02 Long term (current) use of antithrombotics/antiplatelets; Z79.84 Long term (current) use of oral hypoglycemic drugs; Z79.890 Hormone replacement therapy; Z79.899 Other long term (current) drug therapy; Z85.46 Personal history of malignant neoplasm of prostate; Z95.1 Presence of aortocoronary bypass graft; Z95.5 Presence of coronary angioplasty implant and graft; Z95.810 Presence of automatic (implantable) cardiac defibrillator; Z88.8 Allergy status to other drugs, medicaments and biological substances; Z91.041 Radiographic dye allergy status; Z91.040 Latex allergy status
CPT/HCPCS: 36415; 71046; 80053; 84484; 85025; 85027; 93005; 96360; 96361; 99285

== ENCOUNTER → 2022-08-01 | Outpatient (CLI) | payer MEDICARE, BC | END | disposition home or self-care (01) | LOC: LABWHC1 09:01 | PROVIDERS: ATTEND Registered Nurse | DX: Z53.9 Procedure and treatment not carried out, unspecified reason (principal) ==

== ENCOUNTER → 2024-04-15 | Outpatient (CLI) | payer MEDICARE ==
[2024-04-15 20:30] LABS: Blood Urea Nitrogen 20.9 mg/dL (9.0-27.0); Calcium 9.8 mg/dL (8.7-10.3); Carbon Dioxide 26.3 mmol/L (21.6-31.8); Chloride 103 mmol/L (96-109); Glucose 303 mg/dL (70-110); Potassium 4.8 mmol/L (3.5-5.5); Sodium 140 mmol/L (135-145)
[2024-04-15 20:43] LABS: NT-Pro-B-Type Natriuretic Pept 1913 pg/mL (0-125)
== END | disposition home or self-care (01) ==
LOC: LABWHC1 13:09
PROVIDERS: ATTEND Internal Medicine Cardiovascular Disease
DX: I50.22 Chronic systolic (congestive) heart failure (principal)
CPT/HCPCS: 36415; 80048; 83880; 84443